=== PATIENT | female | born 1990 | race Caucasian/White ===

== ENCOUNTER 2019-09-08 12:18 | Emergency (ER) | payer OTHER, SELFPAY ==
[2019-09-08 12:30] VITALS: BP 127/81; PULSE 88; RESP 16; TEMP 37.5; O2SAT 100
--- NOTE | 2019-09-08 12:45 | ED.EAR ---
HPI - Ear Problem General Chief complaint: Ear Stated complaint: ear pressure Time Seen by Provider: 09/08/19 12:37 Source: patient and RN notes reviewed Mode of arrival: ambulatory Limitations: no limitations History of Present Illness HPI Narrative: Patient presents today complaining of a 4-day history of right ear pressure, worse over the last 2 days. She also reports some sinus pressure in the maxillary sinuses as well as a frontal headache. She has been taking Advil without relief. She does report a history of seasonal allergies, but does not currently take any medication for them. MD Complaint: ear pain Related Data Home Medications Medication Instructions Recorded Confirmed No Home Medications 09/08/19 09/08/19 Allergies Allergy/AdvReac Type Severity Reaction Status Date / Time cefaclor Allergy Mild Hives Verified 09/08/19 12:38 Review of Systems Review of Systems: Narrative: CONSTITUTIONAL: Denies body aches, fever, chills, or sweats. EYES: Denies visual changes, redness, or discharge. ENT: Denies rhinorrhea, congestion, sore throat. + Right ear pressure, bilateral maxillary sinus pressure CARDIOVASCULAR: Denies chest pain, palpitations, or edema. RESPIRATORY: Denies cough or dyspnea. GASTROINTESTINAL: Denies abdominal pain, nausea, vomiting, or diarrhea. GENITOURINARY: Denies dysuria or hematuria. SKIN: Denies rash, itching, or wounds. MUSCULOSKELETAL: Denies back pain, joint pain, or myalgia. NEUROLOGIC: Denies numbness, tingling, or weakness.+ Headache PSYCH: Denies depression or anxiety. PMFSH Social History Social History Gender identity (if verbalized by the patient): Female Comments At time of signature, I have reviewed and agree with nursing past medical, surgical, social and family history unless otherwise noted. Please see nursing chart for further information. There is no relevant family history pertinent to the presenting complaint Exam Narrative: Exam Narrative: GENERAL: Well-appearing, well-nourished, and in no acute distress. HEAD: Normocephalic, atraumatic. EYES: EOMI. No redness or drainage. Conjunctivae normal. ENT: Mucous membranes pink and moist. Nares clear. No rhinorrhea. Bilateral middle ear effusions with clear fluid, without evidence of infection. Throat normal. Uvula midline. NECK: Normal AROM. Supple. No lymphadenopathy. CHEST: No respiratory distress. Clear to auscultation. HEART: Regular rate and rhythm. No murmur appreciated. Normal peripheral pulses. EXTREMITIES: Normal range of motion. No edema. SKIN: Warm, dry, no rash. Capillary refill normal. Normal skin turgor. NEURO: No focal deficits. Alert and oriented x3. Gait steady. PSYCH: Normal affect. No signs of depression or anxiety. Course Vital Signs Vital signs: Vital Signs Temperature 99.5 F 09/08/19 12:30 Pulse Rate 88 09/08/19 12:30 Respiratory Rate 16 09/08/19 12:30 Blood Pressure 127/81 09/08/19 12:30 Pulse Oximetry 100 09/08/19 12:30 Temperature 99.5 F 09/08/19 12:30 Pulse Rate 88 09/08/19 12:30 Respiratory Rate 16 09/08/19 12:30 Blood Pressure 127/81 09/08/19 12:30 Pulse Oximetry 100 09/08/19 12:30 Reviewed. Pt has been instructed to follow up with her PCP regarding her elevated blood pressure today. Medical Decision Making Differential Diagnosis Differential Diagnosis: Otitis media, otitis externa, ruptured TM, serous otitis, eustachian tube dysfunction, cerumen impaction, URI Vital Signs Vital Signs: Vital Signs Temperature 99.5 F 09/08/19 12:30 Pulse Rate 88 09/08/19 12:30 Respiratory Rate 16 09/08/19 12:30 Blood Pressure 127/81 09/08/19 12:30 Pulse Oximetry 100 09/08/19 12:30 Temperature 99.5 F 09/08/19 12:30 Pulse Rate 88 09/08/19 12:30 Respiratory Rate 16 09/08/19 12:30 Blood Pressure 127/81 09/08/19 12:30 Pulse Oximetry 100 09/08/19 12:30 Critical Care Time Critical Care Time Critical Care Time
== END 2019-09-08 12:50 | disposition home or self-care (01) ==
PROVIDERS: Emergency Provider Nurse Practitioner; PCP Family Medicine
DX: J30.9 Allergic rhinitis, unspecified (principal)
CPT/HCPCS: 99211; G0463

== ENCOUNTER 2020-04-02 17:13 | Emergency (ER) | payer OTHER, SELFPAY ==
[2020-04-02 17:21] VITALS: BP 134/77; PULSE 94; RESP 16; TEMP 36.5; O2SAT 100
--- NOTE | 2020-04-02 17:21 | ED.DENTAL ---
HPI - Dental/Oral General Chief complaint: Dental/Oral Stated complaint: tooth infection Time Seen by Provider: 04/02/20 17:22 Source: patient and RN notes reviewed Mode of arrival: ambulatory Limitations: no limitations History of Present Illness HPI Narrative: 30 year old female who presents to [facility] care with complaints of dental pain with possible abscess to gum. Patient states that she had a root canal done last year but never went back to have crown applied. Patient states that she broke part of the tooth off in March last year and then broke another part off later.Patient states that she has a lot of tenderness to her gum and swelling where tooth has broken off. Patient has no fever or any swelling to her face or gum. Patient states that she has been using peroxide and salt water gargling and has been taking Ibuprofen. Patient states that she has taken Penicillin and Amoxicillin in the past with no abnormal reaction. MD Complaint: tooth pain and tooth injury Location: Tooth # (14) Onset (ago): day(s) (few days increased symptoms) Duration: constant Severity: moderate Relieving factors: NSAIDs and other (peroxide and salt water garling) Exacerbating factors: chewing Context: history of dental caries Associated symptoms: gum swelling Treatment prior to arrival: oral analgesic and other (peroxide and salt water gargles) Related Data Allergies Allergy/AdvReac Type Severity Reaction Status Date / Time cefaclor Allergy Mild Hives Verified 04/02/20 17:35 Review of Systems Review of Systems: Narrative: CONSTITUTIONAL: Denies fever, chills, or sweats. EYES: Denies visual changes, redness, or discharge. ENT: Denies rhinorrhea, congestion, sore throat, or otalgia, positive for dental pain left upper gum region CARDIOVASCULAR: Denies chest pain, palpitations, or edema. RESPIRATORY: Denies cough or dyspnea. GASTROINTESTINAL: Denies abdominal pain, nausea, vomiting, or diarrhea. GENITOURINARY: Denies dysuria or hematuria. SKIN: Denies rash or itching. MUSCULOSKELETAL: Denies back pain, joint pain, or myalgia. NEUROLOGIC: Denies headache, numbness, or weakness. PSYCHIATRIC: Denies anxiety or depression. All systems reviewed & are unremarkable except as noted in HPI and below [facility] Past Medical History Medical History (Updated 04/02/20 @ 19:53 by Marlene Fernandez NP) Anxiety Arm fracture At risk for dental problems Migraines Surgical History Surgical History (Updated 04/02/20 @ 19:59 by Marlene Fernandez NP) No history of previous surgery Family History Family History (Updated 04/02/20 @ 19:54 by Marlene Fernandez NP) Mother Heart disease Grandparent Diabetes mellitus Social History Social History (Updated 04/02/20 @ 19:54 by Marlene Fernandez NP) Smoking status: Former smoker Tobacco type: cigarettes Alcohol intake: never Substance use: never Living arrangements: with family Gender identity (if verbalized by the patient): Female Comments At time of signature, agree with nursing past medical, surgical, social and family history. There is no relevant family history pertinent to the presenting complaint Exam Narrative: Exam Narrative: GENERAL: Well-appearing, well-nourished, and in no acute distress. HEAD: Normocephalic, atraumatic. EYES: PERRLA and EOMI. ENT: Nares clear, no rhinorrhea or epistaxis. Mucous membranes moist.gum swollen and red where #14 tooth was previously noted with tooth broke off, no swelling to her face noted or any Rick angina noted or any difficulty swallowing. NECK: Supple.no lymphadenopathy CHEST: Clear to auscultation. No respiratory distress.SAO2 100% on room air HEART: Regular rate and rhythm. No murmur heard. Normal peripheral pulses. ABDOMEN: Soft, nontender, nondistended, normal active bowel sounds. EXTREMITIES: Normal range of motion. No edema. SKIN: Warm, dry, no rash. NEURO: No focal deficits. Alert and oriented x3. Course Vital Signs Vital signs: Vital
== END 2020-04-02 17:51 | disposition home or self-care (01) ==
PROVIDERS: Emergency Provider Registered Nurse
DX: K04.7 Periapical abscess without sinus (principal); K02.9 Dental caries, unspecified; Z87.891 Personal history of nicotine dependence
CPT/HCPCS: 99213; G0463

== ENCOUNTER 2020-07-21 09:15 | Emergency (ER) | payer OTHER, SELFPAY ==
[2020-07-21 09:58] VITALS: BP 104/79; PULSE 82; RESP 16; TEMP 36.7; O2SAT 100
--- NOTE | 2020-07-21 10:18 | ED.GENADULT ---
HPI - General Adult General Chief complaint: Upper Respiratory Infection Stated complaint: FEVER/CHILLS/SORE THROAT Time Seen by Provider: 07/21/20 10:18 Source: patient and RN notes reviewed Mode of arrival: ambulatory Limitations: no limitations History of Present Illness HPI narrative: 30-year-old female presents with complaints of upper respiratory infection symptoms, sore throat, chills, congestion, and right otalgia for the past 4 days. Ashli reports increasing symptoms with intermittent DUMONT (not the worst of her life) and nausea. Advil without relief. Dry cough without chest congestion. Rhinorrhea and nasal congestion. Exacerbating factors consist of swallowing and smoke exposure. No high fevers or sweats. No vomiting or abdominal pain. Denies chest pain, coughing up blood, jaw pain, dental pain, facial pain, foreign body sensation, and rash. LMP 06/29/2020. Remains active. The patient reports she have not been diagnosed with COVID-19. The patient reports she is waiting for results of a COVID-19 lab test. The patient reports she do not have weakness, myalgia, or fatigue. The patient reports she do not have a worsening cough. The patient reports she do not have any loss of smell or taste or diarrhea. Denies recent traveling. Denies concerns for COVID-19 or exposures been home with limited outdoor exposure except for essential household needs and return home. At this time, patient is not suspected of having COVID-19. Some parts of this dictation were generated by voice recognition software and may contain typographical and/or grammatical inaccuracies. Related Data Allergies Allergy/AdvReac Type Severity Reaction Status Date / Time cefaclor Allergy Mild Hives Verified 07/21/20 09:49 Review of Systems Review of Systems: Narrative: CONSTITUTIONAL: Complains of chills, tactile fever. Denies sweats. EYES: Denies visual changes, redness, discharge. ENT: Complains of rhinorrhea, congestion, sore throat, RT otalgia. CARDIOVASCULAR: Denies chest pain, palpitations, edema. RESPIRATORY: Denies dyspnea, wheezing. Complains of intermittent cough. GASTROINTESTINAL: Denies abdominal pain, vomiting, diarrhea. Complains of nausea. GENITOURINARY: Denies dysuria, hematuria, abnormal discharge. SKIN: Denies rash or itching. MUSCULOSKELETAL: Denies acute back pain, joint pain, myalgia. NEUROLOGIC: Denies numbness or focal weakness. PSYCHIATRIC: Denies anxiety or depression. Complains of intermittent DUMONT. All systems reviewed & are unremarkable except as noted in HPI and below. [facility] Past Medical History Medical History Anxiety Arm fracture At risk for dental problems Migraines Surgical History Surgical History No history of previous surgery Family History Family History Mother Heart disease Grandparent Diabetes mellitus Social History Social History (Updated 07/21/20 @ 10:45 by MARIETTA Vivas) Years smoked: 14 Smoking status: Current every day smoker Tobacco type: cigarettes Second hand tobacco smoke exposure: No Alcohol intake: never Substance use: never Living arrangements: with family Occupation/Education: occupation Gender identity (if verbalized by the patient): Female Comments At time of signature, agree with nurse past medical, surgical, social, and family history. There is no relevant family history pertinent to the presenting complaint. Exam Narrative: Exam Narrative: GENERAL: This is a well-nourished, well-developed patient, in no apparent distress. Talks in full sentences and ambulates with steady gait without dyspnea. HEAD: Normocephalic, atraumatic. EARS: External ears normal, auditory canals clear and without drainage, TMs normal without perforation. Hearing grossly intact. EYES: PERRL. Sclera clear/
[2020-07-22 16:42] LABS: SARS-CoV-2 RNA PCR Negative
== END 2020-07-21 10:57 | disposition home or self-care (01) ==
PROVIDERS: Emergency Provider Nurse Practitioner Family
DX: J00 Acute nasopharyngitis [common cold] (principal); J01.90 Acute sinusitis, unspecified; Z20.822 Contact with and (suspected) exposure to COVID-19; F17.210 Nicotine dependence, cigarettes, uncomplicated; F41.9 Anxiety disorder, unspecified
CPT/HCPCS: 87081; 87426; 87804; 87880; 99213; C9803; G0463; U0003; U0005

== ENCOUNTER 2020-08-25 17:27 | Emergency (ER) | payer OTHER, SELFPAY ==
[2020-08-25 17:38] VITALS: BP 130/86; PULSE 102; RESP 16; TEMP 36.8; O2SAT 100
--- NOTE | 2020-08-25 18:19 | ED.URI ---
HPI - URI/Sore Throat General Chief Complaint: Upper Respiratory Infection Stated Complaint: sinus infection Source: patient Mode of arrival: ambulatory Limitations: no limitations History of Present Illness HPI Narrative: Patient is a 30-year-old female who presents complaining of URI symptoms. Patient reports headache and sinus pressure for about 1.5 weeks. Patient reports she is supposed to use Flonase daily but has not been. She reports increased facial pressure, sore throat and states my taste and smell are off for the past 2 days. She denies fever, sore throat, nausea, vomiting or diarrhea. Related Data Allergies Allergy/AdvReac Type Severity Reaction Status Date / Time cefaclor Allergy Mild Hives Verified 08/25/20 18:15 Review of Systems Review of Systems: Narrative: CONSTITUTIONAL: Denies fever, chills, or sweats. EYES: Denies visual changes, redness, or discharge. ENT: Reports sinus pressure, changes in taste and smell CARDIOVASCULAR: Denies chest pain, palpitations, or edema. RESPIRATORY: Denies cough or dyspnea. GASTROINTESTINAL: Denies abdominal pain, nausea, vomiting, or diarrhea. GENITOURINARY: Denies dysuria or hematuria. SKIN: Denies rash or itching. MUSCULOSKELETAL: Denies back pain, joint pain, or myalgia. NEUROLOGIC: Reports headache, denies numbness, dizziness, or weakness. PSYCHIATRIC: Denies anxiety or depression. [facility] Past Medical History Medical History Anxiety Arm fracture At risk for dental problems Migraines Surgical History Surgical History No history of previous surgery Family History Family History Mother Heart disease Grandparent Diabetes mellitus Social History Social History Years smoked: 14 Smoking status: Current every day smoker Tobacco type: cigarettes Second hand tobacco smoke exposure: No Alcohol intake: never Substance use: never Gender identity (if verbalized by the patient): Female Comments At the time of signature, I have reviewed and agree with nursing past medical, surgical, social, and family history unless otherwise noted. Please see nursing chart for further information. There is no relevant family history pertinent to the presenting complaint. Exam Narrative: Exam Narrative: GENERAL: Well-appearing, well-nourished, and in no acute distress. HEAD: Normocephalic, atraumatic. EYES: EOMI. No redness or drainage. Conjunctiva are normal. ENT: Mucous membranes pink and moist. Nares clear. No rhinorrhea. TMs normal bilaterally. Throat mild erythema. Uvula midline. Maxillary and frontal sinus tenderness with palpation NECK: AROM. Supple. No lymphadenopathy. CHEST: No respiratory distress. Clear to auscultation. HEART: Regular rate and rhythm. EXTREMITIES: Normal range of motion. SKIN: Warm, dry, no rash. NEURO: No focal deficits. Alert and oriented x3. Gait steady. PSYCH: Normal affect. No signs of depression or anxiety. Course Vital Signs Vital signs: Vital Signs Temperature 36.8 C 08/25/20 17:38 Pulse Rate 102 H 08/25/20 17:38 Respiratory Rate 16 08/25/20 17:38 Blood Pressure 130/86 08/25/20 17:38 Pulse Oximetry 100 08/25/20 17:38 Temperature 36.8 C 08/25/20 17:38 Pulse Rate 102 H 08/25/20 17:38 Respiratory Rate 16 08/25/20 17:38 Blood Pressure 130/86 08/25/20 17:38 Pulse Oximetry 100 08/25/20 17:38 Reviewed MDM - URI/Sore Throat MDM Narrative Medical decision making narrative: Patient most likely has sinusitis, antibiotics prescribed at this time. Rapid Covid negative, Covid PCR sent to lab at this time. Covid testing performed due to patient's changes of taste and smell. Patient is aware of quarantine. Patient Differential Diagnosis Differential diagnosis: Likely u
[2020-08-26 17:06] LABS: SARS-CoV-2 RNA PCR Negative
== END 2020-08-25 18:30 | disposition home or self-care (01) ==
PROVIDERS: Emergency Provider Nurse Practitioner
DX: J32.9 Chronic sinusitis, unspecified (principal); Z20.822 Contact with and (suspected) exposure to COVID-19; F17.210 Nicotine dependence, cigarettes, uncomplicated; F41.9 Anxiety disorder, unspecified
CPT/HCPCS: 87426; 99213; C9803; G0463; U0003; U0005

== ENCOUNTER 2021-03-29 19:27 | Emergency (ER) | payer OTHER, SELFPAY ==
--- NOTE | 2021-03-29 19:46 | ED.URI ---
HPI - URI/Sore Throat General Chief Complaint: Upper Respiratory Infection Stated Complaint: sore throat Time Seen by Provider: 03/29/21 20:06 Source: patient and RN notes reviewed Mode of arrival: ambulatory Limitations: no limitations History of Present Illness HPI Narrative: 31-year-old female presents concern for sore throat, painful swallowing, slight nausea. She denies headache, sinus congestion, nasal drainage, fever, body aches, sweats. Reports has been fully vaccinated for Covid. Reports she is taking ibuprofen. MD elicited complaint: sore throat Related Data Allergies Allergy/AdvReac Type Severity Reaction Status Date / Time cefaclor Allergy Mild Hives Verified 03/29/21 20:02 Review of Systems Review of Systems: CONSTITUTIONAL: Denies malaise, chills, sweats, or fever. EYES: Denies visual changes, redness, or discharge. ENT: Denies rhinorrhea, congestion, sinus pain, otalgia. Reports sore throat. CARDIOVASCULAR: Denies chest pain, palpitations, or edema. RESPIRATORY: Denies cough. Denies dyspnea. GASTROINTESTINAL: Denies abdominal pain, vomiting, diarrhea. Reports nausea SKIN: Denies rash or itching. MUSCULOSKELETAL: Denies myalgia. NEUROLOGIC: Denies headache. All systems reviewed & are unremarkable except as noted in HPI and below PMFSH Past Medical History Medical History Anxiety Arm fracture At risk for dental problems Migraines Surgical History Surgical History No history of previous surgery Family History Family History Mother Heart disease Grandparent Diabetes mellitus Social History Social History Years smoked: 14 Smoking status: Current every day smoker Tobacco type: cigarettes Second hand tobacco smoke exposure: No Alcohol intake: never Substance use: never Gender identity (if verbalized by the patient): Female Comments At time of signature, agree with nursing past medical, surgical, social and family history. There is no relevant family history pertinent to the presenting complaint Exam Narrative: GENERAL: Well-appearing, well-nourished, and in no acute distress. HEAD: Normocephalic EYES: PERRLA, conjunctivae clear ENT: Nares clear, turbinates edematous and erythematous, clear discharge. Mucous membranes moist. TM pearly owens with dull light reflex bilaterally; no tragal tenderness. Oropharynx erythematous without lesions. Tonsils not enlarged and without exudate, no drooling, no hoarseness, no trismus, uvula midline. NECK: Supple. No lymphadenopathy CHEST: Clear to auscultation, breath sounds equal. No wheezing, rhonchi, rales, or stridor. No respiratory distress, speaks in full sentences. HEART: Regular rate and rhythm. No murmur heard. SKIN: Warm, dry, no rash. NEURO: Alert and oriented x3. PSYCH: Normal mood and affect Course Course Emergency Course: Patient is aware of diagnosis, understands and agrees to treatment plan. Anticipatory guidance given. Patient agrees to follow-up as directed and is aware of reasons to seek care at the emergency department. Portions of this record may have been created with voice recognition software Vital Signs Vital signs: Reviewed. MDM - URI/Sore Throat MDM Narrative Medical decision making narrative: Differential diagnosis considered: Mendez virus, strep pharyngitis, allergic rhinitis, upper respiratory tract infection, sinusitis, rhinosinusitis, nasopharyngitis. viral pharyngitis, otitis media, otitis externa, pneumonia, bronchitis, viral cough syndrome, viral syndrome, and influenza. Exam findings show no acute concerns or changes; patient is non-toxic appearing and is in no distress. Patient is appropriate for outpatient treatment and follow-up. Lab Data Attestation: I reviewed the patient's lab results. Cri
[2021-03-29 19:53] VITALS: BP 122/82; PULSE 71; RESP 16; TEMP 36.8; O2SAT 99
[2021-03-31 17:37] LABS: SARS-CoV-2 RNA PCR Negative
== END 2021-03-29 20:15 | disposition home or self-care (01) ==
PROVIDERS: Emergency Provider Nurse Practitioner
DX: J02.9 Acute pharyngitis, unspecified (principal); Z20.822 Contact with and (suspected) exposure to COVID-19; F17.210 Nicotine dependence, cigarettes, uncomplicated
CPT/HCPCS: 87081; 87880; 99213; C9803; G0463; U0003; U0005

== ENCOUNTER 2021-04-04 19:09 | Emergency (ER) | payer OTHER, SELFPAY ==
--- NOTE | 2021-04-04 19:16 | ED.URI ---
HPI - URI/Sore Throat General Chief Complaint: Upper Respiratory Infection Stated Complaint: Sore Throat Time Seen by Provider: 04/04/21 19:17 Source: patient, RN notes reviewed and old records reviewed Mode of arrival: ambulatory Limitations: no limitations History of Present Illness HPI Narrative: 31-year-old female presents to the [facility] with complaints of a sore throat for 1 week. Patient had a throat culture done, Covid test which were both negative. Has not followed up with her primary care provider. Had tried using the lidocaine throat gargle and states it does not help. Denies fevers, abdominal pain, chest pain. No shortness of breath. Patient states she talks all day and works from home and needs the pain to stop. MD elicited complaint: sore throat Related Data Allergies Allergy/AdvReac Type Severity Reaction Status Date / Time cefaclor Allergy Mild Hives Verified 04/04/21 19:23 Review of Systems Review of Systems: All systems reviewed & are unremarkable except as noted in HPI and below Constitutional: Constitutional: Reports no additional constitutional complaints, Denies chills and Denies fever(s) Eyes: Eyes: Reports no additional eye complaints ENT: Reports as per HPI, Denies dysphagia, Denies vertigo, Denies dizziness, Denies nasal congestion and Reports sore throat Cardiovascular: Cardiovascular: Reports no additional cardiovascular complaints and Denies chest pain Respiratory: Respiratory: Reports no additional respiratory complaints, Denies cough and Denies dyspnea Musculoskeletal: Musculoskeletal: Reports no additional musculoskeletal complaints Integumentary/Breasts: Skin/Breast: Reports system reviewed and no additional complaints, except as docu Neurologic: Reports system reviewed and no additional complaints, except as documented Psychiatric: Psychiatric: Reports no additional psychiatric complaints Allergic/Immunologic: Allergic/Immunologic: Reports no additional allergic/immunologic complaints [facility] Past Medical History Medical History Anxiety Arm fracture At risk for dental problems Migraines Surgical History Surgical History No history of previous surgery Family History Family History Mother Heart disease Grandparent Diabetes mellitus Social History Social History Years smoked: 14 Smoking status: Current every day smoker Tobacco type: cigarettes Second hand tobacco smoke exposure: No Alcohol intake: never Substance use: never Gender identity (if verbalized by the patient): Female Comments At the time of my signature, I reviewed and agree with the nursing past medical, surgical, social, and family history. There is no relevant family history pertinent to the patient complaint. Exam Const: General: healthy appearing, no acute distress and alert Nutritional Appearance: well nourished Orientation/consciousness: patient oriented x3 Limitations: no limitations HENMT: Head: normal to inspection Ears: external ears normal, TM's normal bilaterally and EAC's normal General nose exam: Normal external nose present, Normal nasal mucous membranes and turbinates present and No nasal discharge present Face and sinus: normal facial exam and sinuses nontender Mouth: Yes Normal oral and palatal mucosa present and Yes moist mucous membranes Throat: tonsils normal, uvula midline, postnasal drainage and no uvular edema Eyes: Conjunctivae: conjunctivae normal Pupils: Equal, round and reactive pupils present Neck: Neck: normal visual inspection, no lymphadenopathy and no meningeal signs Chest: Chest palpation & inspection: normal inspection of the chest Resp: Effort & Inspection: normal respiratory effort and no use of accessory muscles Auscultation: clear to auscultation bilater
[2021-04-04 19:18] VITALS: BP 131/80; PULSE 64; RESP 16; TEMP 36.6; O2SAT 100
== END 2021-04-04 19:30 | disposition home or self-care (01) ==
PROVIDERS: Emergency Provider Nurse Practitioner
DX: J02.9 Acute pharyngitis, unspecified (principal); F17.210 Nicotine dependence, cigarettes, uncomplicated
CPT/HCPCS: 99213; G0463

== ENCOUNTER 2021-04-12 08:49 | Emergency (ER) | payer OTHER, SELFPAY ==
[2021-04-12 08:58] VITALS: BP 117/82; PULSE 81; RESP 16; TEMP 36.1; O2SAT 99
--- NOTE | 2021-04-12 09:42 | ED.FEMALEGU ---
HPI - Female Genitourinary General Chief complaint: COURT OPERATIONS CLERK Stated complaint: YEAST INFECTION Time Seen by Provider: 04/12/21 09:40 Source: patient and RN notes reviewed Mode of arrival: ambulatory Limitations: no limitations History of Present Illness HPI Narrative: 31-year-old female presents concern for vaginal yeast infection. Reports she is currently assisted through a course of amoxicillin. Reports history of yeast infections during and when taking antibiotics. She reports vaginal itching, irritation, inflammation, thick white discharge. She denies abnormal vaginal bleeding, purulent discharge, dysuria, urine frequency, urgency. Reports mild pelvic discomfort. MD elicited complaint: genital itching Related Data Home Medications Medication Instructions Recorded Confirmed amoxicillin 875 mg PO BID 04/12/21 04/12/21 Allergies Allergy/AdvReac Type Severity Reaction Status Date / Time cefaclor Allergy Mild Hives Verified 04/12/21 09:36 Review of Systems Review of Systems: CONSTITUTIONAL: Denies malaise, chills, sweats, or fever. GASTROINTESTINAL: Denies abdominal pain, reports mild pelvic discomfort GENITOURINARY: Denies dysuria or hematuria. SKIN: Reports vaginal itching, irritation, inflammation All systems reviewed & are unremarkable except as noted in HPI and below PMFSH Past Medical History Medical History Anxiety Arm fracture At risk for dental problems Migraines Surgical History Surgical History No history of previous surgery Family History Family History Mother Heart disease Grandparent Diabetes mellitus Social History Social History Years smoked: 14 Smoking status: Current every day smoker Tobacco type: cigarettes Second hand tobacco smoke exposure: No Alcohol intake: never Substance use: never Gender identity (if verbalized by the patient): Female Comments At time of signature, agree with nursing past medical, surgical, social and family history. There is no relevant family history pertinent to the presenting complaint Exam Narrative: GENERAL: Well-appearing, well-nourished, and in no acute distress. HEAD: Normocephalic. EYES: PERRLA, conjunctivae clear. NECK: Supple. No lymphadenopathy CHEST: Clear to auscultation. No respiratory distress. HEART: Regular rate and rhythm. SKIN: Warm, dry, no rash. NEURO: Alert and oriented x3. PSYCH: Normal mood and affect Course Course Emergency Course: Patient is aware of diagnosis, understands and agrees to treatment plan. Anticipatory guidance given. Patient agrees to follow-up as directed and is aware of reasons to seek care at the emergency department. Portions of this record may have been created with voice recognition software Vital Signs Vital signs: Vital Signs Temperature 96.9 F L 04/12/21 08:58 Pulse Rate 81 04/12/21 08:58 Respiratory Rate 16 04/12/21 08:58 Blood Pressure 117/82 04/12/21 08:58 Pulse Oximetry 99 04/12/21 08:58 Temperature 96.9 F L 04/12/21 08:58 Pulse Rate 81 04/12/21 08:58 Respiratory Rate 16 04/12/21 08:58 Blood Pressure 117/82 04/12/21 08:58 Pulse Oximetry 99 04/12/21 08:58 Reviewed. MDM - Female Genitourinary MDM Narrative Medical decision making narrative: Exam findings show no acute concerns or changes; patient is non-toxic appearing and is in no distress. Patient is appropriate for outpatient treatment and follow-up. Differential Diagnosis Differential diagnosis: Likely urinary tract infection, bacterial vaginosis, cervicitis, vaginitis, cystitis and other (Candidiasis) Critical Care Time Critical Care Time Critical Care Time: No Discharge Plan Discharge Clinical Impression: Vaginal itching Patient Disposition: Home, Self-Care Condition:
== END 2021-04-12 09:55 | disposition home or self-care (01) ==
PROVIDERS: Emergency Provider Nurse Practitioner
DX: L29.2 Pruritus vulvae (principal); F17.210 Nicotine dependence, cigarettes, uncomplicated
CPT/HCPCS: 99213; G0463

== ENCOUNTER 2021-05-02 09:18 | Emergency (ER) | payer OTHER, SELFPAY ==
[2021-05-02 09:29] VITALS: BP 122/70; PULSE 77; RESP 16; TEMP 36.6; O2SAT 100
--- NOTE | 2021-05-02 10:01 | ED.URI ---
HPI - URI/Sore Throat General Chief Complaint: Upper Respiratory Infection Stated Complaint: Feveer,Chills,Body Aches Time Seen by Provider: 05/02/21 10:02 Source: patient and RN notes reviewed History of Present Illness HPI Narrative: 31-year-old female presents to the [facility] with complaints of sore throat, headache, chills and body aches since 4 AM this morning, 6 hours. States that her daughter had a positive contact the Covid. Has felt feverish but did not her temperature. No treatment prior to arrival. MD elicited complaint: sore throat and other (Body aches and chills) Related Data Home Medications Medication Instructions Recorded Confirmed amoxicillin 875 mg PO BID 04/12/21 04/12/21 Allergies Allergy/AdvReac Type Severity Reaction Status Date / Time cefaclor Allergy Mild Hives Verified 04/12/21 09:36 Review of Systems Review of Systems: All systems reviewed & are unremarkable except as noted in HPI and below Constitutional: Constitutional: Reports as per HPI, Reports chills and Denies fever(s) Eyes: Eyes: Reports no additional eye complaints ENT: Reports as per HPI, Reports nasal congestion and Reports sore throat Cardiovascular: Cardiovascular: Reports no additional cardiovascular complaints and Denies chest pain Respiratory: Respiratory: Reports no additional respiratory complaints, Denies chest congestion, Denies cough, Denies dyspnea and Denies wheezing Gastrointestinal: Gastrointestinal: Reports no additional gastrointestinal complaints, Denies abdominal pain, Denies diarrhea, Denies nausea and Denies vomiting Musculoskeletal: Musculoskeletal: Reports as per HPI and Reports myalgias Integumentary/Breasts: Skin/Breast: Reports system reviewed and no additional complaints, except as docu Neurologic: Reports as per HPI and Reports headache(s) Psychiatric: Psychiatric: Reports no additional psychiatric complaints Allergic/Immunologic: Allergic/Immunologic: Reports no additional allergic/immunologic complaints PMFSH Past Medical History Medical History Anxiety Arm fracture At risk for dental problems Migraines Surgical History Surgical History No history of previous surgery Family History Family History Mother Heart disease Grandparent Diabetes mellitus Social History Social History Years smoked: 14 Smoking status: Current every day smoker Tobacco type: cigarettes Second hand tobacco smoke exposure: No Alcohol intake: never Substance use: never Gender identity (if verbalized by the patient): Female Comments At the time of my signature, I reviewed and agree with the nursing past medical, surgical, social, and family history. There is no relevant family history pertinent to the patient complaint. Exam Const: General: healthy appearing, no acute distress and alert Nutritional Appearance: well nourished Orientation/consciousness: patient oriented x3 Limitations: no limitations HENMT: Head: normal to inspection Ears: external ears normal, TM's normal bilaterally and EAC's normal Eyes: Conjunctivae: conjunctivae normal Pupils: Equal, round and reactive pupils present Neck: Neck: normal visual inspection, no lymphadenopathy and no meningeal signs Chest: Chest palpation & inspection: normal inspection of the chest Resp: Effort & Inspection: normal respiratory effort and no use of accessory muscles Auscultation: clear to auscultation bilaterally, no crackles, no rales, no rhonchi and no wheezes Cardio: Rate: regular rate Rhythm: regular rhythm GI: GI Palp: Yes Tenderness to palpation present (GI) Skin: General skin exam: normal color Rashes: no rashes Wounds: no wounds Neuro: General: patient oriented x3, moves all extremities, no meningeal signs and no focal motor
== END 2021-05-02 10:15 | disposition left against medical advice (07) ==
PROVIDERS: Emergency Provider Nurse Practitioner
DX: B34.9 Viral infection, unspecified (principal); Z20.822 Contact with and (suspected) exposure to COVID-19; F17.210 Nicotine dependence, cigarettes, uncomplicated
CPT/HCPCS: 99211; G0463

== ENCOUNTER 2021-07-04 15:07 | Emergency (ER) | payer OTHER, SELFPAY ==
--- NOTE | 2021-07-04 15:09 | ED.URI ---
HPI - URI/Sore Throat General Chief Complaint: Upper Respiratory Infection Stated Complaint: Sore throat Time Seen by Provider: 07/04/21 15:11 Source: patient, family, RN notes reviewed and old records reviewed Mode of arrival: ambulatory Limitations: no limitations History of Present Illness HPI Narrative: 31-year-old female presents to the [facility] with complaints of a sore throat for 3 days. Has taken Tylenol. No other treatment prior to arrival. Has felt feverish. Denies any abdominal pain or chest pain. No nausea vomiting or diarrhea. MD elicited complaint: sore throat Related Data Allergies Allergy/AdvReac Type Severity Reaction Status Date / Time amoxicillin Allergy Mild Hives Verified 07/04/21 15:21 cefaclor Allergy Mild Hives Verified 07/04/21 15:21 Review of Systems Review of Systems: All systems reviewed & are unremarkable except as noted in HPI and below Constitutional: Constitutional: Reports no additional constitutional complaints, Denies chills, Denies fever(s) and Denies headache(s) Eyes: Eyes: Reports no additional eye complaints ENT: Reports as per HPI, Denies vertigo, Denies dizziness, Denies headache(s), Denies nasal congestion and Reports sore throat Cardiovascular: Cardiovascular: Reports no additional cardiovascular complaints, Denies chest pain, Denies syncope, Denies rapid heart rate and Denies dyspnea Respiratory: Respiratory: Reports no additional respiratory complaints, Denies cough, Denies dyspnea and Denies wheezing Gastrointestinal: Gastrointestinal: Reports no additional gastrointestinal complaints, Denies abdominal pain, Denies diarrhea, Denies nausea and Denies vomiting Musculoskeletal: Musculoskeletal: Reports no additional musculoskeletal complaints, Denies back pain and Denies numbness Integumentary/Breasts: Skin/Breast: Reports system reviewed and no additional complaints, except as docu Neurologic: Reports system reviewed and no additional complaints, except as documented, Denies vertigo, Denies dizziness, Denies syncope, Denies headache(s), Denies focal weakness and Denies numbness Psychiatric: Psychiatric: Reports no additional psychiatric complaints Allergic/Immunologic: Allergic/Immunologic: Reports no additional allergic/immunologic complaints and Denies wheezing PMFSH Past Medical History Medical History Anxiety Arm fracture At risk for dental problems Migraines Surgical History Surgical History No history of previous surgery Family History Family History Mother Heart disease Grandparent Diabetes mellitus Social History Social History Years smoked: 14 Smoking status: Current every day smoker Tobacco type: cigarettes Second hand tobacco smoke exposure: No Alcohol intake: never Substance use: never Gender identity (if verbalized by the patient): Female Comments At the time of my signature, I reviewed and agree with the nursing past medical, surgical, social, and family history. There is no relevant family history pertinent to the patient complaint. Exam Const: General: cooperative, healthy appearing, no acute distress, well developed and alert Nutritional Appearance: well nourished Orientation/consciousness: patient oriented x3 Limitations: no limitations HENMT: Head: normal to inspection Ears: external ears normal, TM's normal bilaterally and EAC's normal General nose exam: Normal external nose present Face and sinus: normal facial exam and face symmetric Mouth: Yes Normal oral and palatal mucosa present Throat: posterior oropharynx normal, tonsils normal, uvula midline and no uvular edema Eyes: Conjunctivae: conjunctivae normal Pupils: Equal, round and reactive pupils present Neck: Neck: normal visual inspection, no ly
[2021-07-04 15:15] VITALS: BP 123/79; PULSE 78; RESP 16; TEMP 36.6; O2SAT 99
== END 2021-07-04 15:35 | disposition home or self-care (01) ==
PROVIDERS: Emergency Provider Nurse Practitioner
DX: J02.9 Acute pharyngitis, unspecified (principal); R09.82 Postnasal drip; F17.210 Nicotine dependence, cigarettes, uncomplicated
CPT/HCPCS: 87081; 87880; 99213; G0463

== ENCOUNTER 2021-10-05 10:49 | Outpatient (CLI) | payer OTHER, SELFPAY ==
--- NOTE | ~2021-10-05 | XR_ITS ---
XR chest 2V DATE: 10/05/2021 11:03 INDICATION: Tobacco smoker for 22 years TECHNIQUE: PA and lateral views COMPARISON: 02/28/2011 2 view chest FINDINGS: Normal heart size. No hilar or mediastinal enlargement. No pulmonary infiltrate or consolid ation, pleural effusion or pulmonary vascular congestion or pneumothorax. IMPRESSION: Negative Reviewed, dictated and finalized at location A. IMPRESSION: Negative
== END 2021-10-05 10:50 | disposition home or self-care (01) ==
LOC: ANHIMG 10:53
PROVIDERS: PCP Emergency Medicine; Visit Provider Emergency Medicine
DX: Z13.6 Encounter for screening for cardiovascular disorders (principal); Z72.0 Tobacco use
CPT/HCPCS: 71046

== ENCOUNTER 2021-11-11 19:12 | Emergency (ER) | payer OTHER, SELFPAY ==
--- NOTE | 2021-11-11 19:18 | ED.URI ---
HPI - URI/Sore Throat General Chief Complaint: Upper Respiratory Infection Stated Complaint: Sinus Infection Time Seen by Provider: 11/11/21 19:19 Source: patient Mode of arrival: ambulatory Limitations: no limitations History of Present Illness HPI Narrative: 31-year-old female presents with complaint of 11 days of sinus congestion, sinus pressure, postnasal drainage. Reports that she tested positive for COVID 11 days ago. Is taking Flonase, no other [id number] medications to treat her symptoms. No recent fever. Reports last several days she has had bad taste in her mouth, intermittent dizziness. She reports history of deviated symptoms. Has history of several bacterial sinus infections. All systems reviewed and negative except as noted above. Related Data Allergies Allergy/AdvReac Type Severity Reaction Status Date / Time amoxicillin Allergy Mild Hives Verified 07/04/21 15:21 cefaclor Allergy Mild Hives Verified 07/04/21 15:21 Review of Systems Review of Systems: CONSTITUTIONAL: Denies fever, chills, or sweats. EYES: Denies visual changes, redness, or discharge. ENT: Reports rhinorrhea, congestion, sinus pressure Denies sore throat, or otalgia. CARDIOVASCULAR: Denies chest pain, palpitations, or edema. RESPIRATORY: Denies cough or dyspnea. GASTROINTESTINAL: Denies abdominal pain, nausea, vomiting, or diarrhea. GENITOURINARY: Denies dysuria or hematuria. SKIN: Denies rash or itching. MUSCULOSKELETAL: Denies back pain, joint pain, or myalgia. NEUROLOGIC: Denies headache, numbness, or weakness. PSYCHIATRIC: Denies anxiety or depression. All other systems reviewed are negative, except as documented in HPI. [facility] Past Medical History Medical History Anxiety Arm fracture At risk for dental problems Migraines Surgical History Surgical History No history of previous surgery Family History Family History Mother Heart disease Grandparent Diabetes mellitus Social History Social History Years smoked: 14 Smoking status: Current every day smoker Tobacco type: cigarettes Second hand tobacco smoke exposure: No Alcohol intake: never Substance use: never Gender identity (if verbalized by the patient): Female Comments At time of signature, agree with nursing past medical, surgical, social and family history. There is no relevant family history pertinent to the presenting complaint. Exam Narrative: GENERAL: This is a well-nourished, well-developed patient, in no apparent distress. HEAD: normocephalic, atraumatic. EYES: PERRL. Sclera clear/white. Vision is grossly intact. EARS: External ears normal, auditory canals clear and without drainage, fluid to bilateral TMs, dull light reflex. NOSE: External nose normal with clear nasal drainage, moderate congestion, erythema to both nares. Bilateral frontal and maxillary sinus tenderness. THROAT: Mucous membranes moist, no erythema to posterior pharynx. Purulent postnasal drainage noted. NECK: Neck supple, non-tender without lymphadenopathy, masses or thyromegaly. CARDIOVASCULAR: Regular rate and rhythm without murmurs, gallops, or rubs. RESPIRATORY: Clear to auscultation. Breath sounds equal bilaterally. No wheezes, rales, or rhonchi. SKIN: warm, Dry, intact with no suspicious lesions or rash, good texture and turgor. NEURO: awake, alert, and oriented to person, place and time. There were no obvious focal neurologic abnormalities. EXTREMITIES: No joint tenderness, effusion, or edema noted. Course Course Level of Care: Express Care Visit Vital Signs Vital signs: Reviewed MDM - URI/Sore Throat MDM Narrative Medical decision making narrative: Patient is aware of diagnosis, understands and agrees to treatment plan. Ron shane
[2021-11-11 19:19] VITALS: BP 129/85; PULSE 75; RESP 16; TEMP 36.8; O2SAT 100
== END 2021-11-11 19:35 | disposition home or self-care (01) ==
PROVIDERS: Emergency Provider Nurse Practitioner Family; PCP Emergency Medicine
DX: J01.90 Acute sinusitis, unspecified (principal); Z86.16 Personal history of COVID-19; F17.210 Nicotine dependence, cigarettes, uncomplicated
CPT/HCPCS: 99213; G0463

== ENCOUNTER 2021-11-16 15:19 | Emergency (ER) | payer OTHER, SELFPAY ==
[2021-11-16 15:37] VITALS: BP 126/83; PULSE 72; RESP 16; TEMP 36.3; O2SAT 100
--- NOTE | 2021-11-16 16:11 | ED.SKABFB ---
HPI - Skin/Abscess/Foreign Bdy General Chief complaint: Extremity Injury, Upper Stated complaint: hands/arms tingling Time Seen by Provider: 11/16/21 15:59 Source: patient Mode of arrival: ambulatory Limitations: no limitations History of Present Illness HPI narrative: Patient presents today complaining of a burning sensation on and on her arms and hands that started around 2 PM while she was out swimming for a little over an hour this afternoon and subsequently did end up with a sunburn. Patient has been on doxycycline for the past 5 days for a sinus infection. She was not wearing sunscreen. She has taken some ibuprofen, which has improved her symptoms prior to arrival. Related Data Allergies Allergy/AdvReac Type Severity Reaction Status Date / Time amoxicillin Allergy Mild Hives Verified 07/04/21 15:21 cefaclor Allergy Mild Hives Verified 07/04/21 15:21 Review of Systems Review of Systems: CONSTITUTIONAL: Denies body aches, fever, chills, or sweats. EYES: Denies visual changes, redness, or discharge. ENT: Denies rhinorrhea, congestion, sore throat, or otalgia. CARDIOVASCULAR: Denies chest pain, palpitations, or edema. RESPIRATORY: Denies cough or dyspnea. GASTROINTESTINAL: Denies abdominal pain, nausea, vomiting, or diarrhea. GENITOURINARY: Denies dysuria or hematuria. SKIN: +Burning to skin of bilateral arms and hands, sunburn MUSCULOSKELETAL: Denies back pain, joint pain, or myalgia. NEUROLOGIC: Denies headache, numbness, tingling, or weakness. PSYCH: Denies depression or anxiety. [facility] Past Medical History Medical History Anxiety Arm fracture At risk for dental problems Migraines Surgical History Surgical History No history of previous surgery Family History Family History Mother Heart disease Grandparent Diabetes mellitus Social History Social History Years smoked: 14 Smoking status: Current every day smoker Tobacco type: cigarettes Second hand tobacco smoke exposure: No Alcohol intake: never Substance use: never Gender identity (if verbalized by the patient): Female Comments At time of signature, I have reviewed and agree with nursing past medical, surgical, social and family history unless otherwise noted. Please see nursing chart for further information. There is no relevant family history pertinent to the presenting complaint Exam Narrative: GENERAL: Well-appearing, well-nourished, and in no acute distress. HEAD: Normocephalic, atraumatic. EYES: EOMI. No redness or drainage. Conjunctivae normal. ENT: Mucous membranes pink and moist. NECK: Normal AROM. CHEST: No respiratory distress. EXTREMITIES: Normal range of motion. No edema. SKIN: Warm, dry, no rash. Capillary refill normal. Normal skin turgor. Mild sunburn to the bilateral arms. No blistering NEURO: No focal deficits. Alert and oriented x3. Gait steady. PSYCH: Normal affect. No signs of depression or anxiety. Course Course Emergency Course: Discussed with patient that photosensitivity is very common with doxycycline use. Discussed using SPF clothing and/ or sunscreen if she is out in the sun while she is on the medication. Level of Care: Express Care Visit Vital Signs Vital signs: Vital Signs Temperature 97.4 F L 11/16/21 15:37 Pulse Rate 72 11/16/21 15:37 Respiratory Rate 16 11/16/21 15:37 Blood Pressure 126/83 11/16/21 15:37 Pulse Oximetry 100 11/16/21 15:37 Oxygen Delivery Room Air 11/16/21 15:37 Temperature 97.4 F L 11/16/21 15:37 Pulse Rate 72 11/16/21 15:37 Respiratory Rate 16 11/16/21 15:37 Blood Pressure 126/83 11/16/21 15:37 Pulse Oximetry 100 11/16/21 15:37 Oxygen Delivery Room Air 11/16/21 15:37 Reviewed. Pt cline
== END 2021-11-16 16:14 | disposition home or self-care (01) ==
PROVIDERS: Emergency Provider Nurse Practitioner
DX: L56.8 Other specified acute skin changes due to ultraviolet radiation (principal); F17.210 Nicotine dependence, cigarettes, uncomplicated
CPT/HCPCS: 99211; G0463

== ENCOUNTER 2022-01-26 19:10 | Emergency (ER) | payer OTHER, SELFPAY ==
[2022-01-26 19:46] VITALS: BP 116/71; PULSE 69; RESP 16; TEMP 36.8
--- NOTE | 2022-01-26 21:11 | ED.SKABFB ---
HPI - Skin/Abscess/Foreign Bdy General Chief complaint: Skin/Abscess/Foreign Body Stated complaint: rash Time Seen by Provider: 01/26/22 21:05 Source: patient, RN notes reviewed and old records reviewed History of Present Illness HPI narrative: 32 year old female who presents to [facility] care with complaints of red hawley on her left buttock which developed this afternoon that are itchy, patient states that she does get waxing done to the area has applied hydrocortisone ointment to area. Patient also states recurrent abscess to lower left buttock that comes and goes and will drain foul material at times, no fluctuant tissue noted to lower left buttock area small raised tissue which is red 0.25 in diameter with no acute redness of tissue or warmth. Area on left buttock appears to be contact dermatitis. MD complaint: rash and lesion Onset (ago): hour(s) (this afternoon today) Treatments prior to arrival: other (hydrocortisone) Related Data Allergies Allergy/AdvReac Type Severity Reaction Status Date / Time amoxicillin Allergy Mild Hives Verified 01/26/22 20:35 cefaclor Allergy Mild Hives Verified 01/26/22 20:35 Review of Systems Review of Systems: CONSTITUTIONAL: Denies fever, chills, or sweats. EYES: Denies visual changes, redness, or discharge. ENT: Denies rhinorrhea, congestion, sore throat, or otalgia. CARDIOVASCULAR: Denies chest pain, palpitations, or edema. RESPIRATORY: Denies cough or dyspnea. GASTROINTESTINAL: Denies abdominal pain, nausea, vomiting, or diarrhea. GENITOURINARY: Denies dysuria or hematuria. SKIN: positive rash to left buttock and small nonfluctuant lesion left lower buttock. MUSCULOSKELETAL: Denies back pain, joint pain, or myalgia. NEUROLOGIC: Denies headache, numbness, or weakness. PSYCHIATRIC:positive for history of anxiety or depression. All systems reviewed & are unremarkable except as noted in HPI and below PMFSH Past Medical History Medical History (Updated 01/30/22 @ 16:47 by Marlene Fernandez NP) Anxiety Arm fracture At risk for dental problems COVID-19 04/2021 Migraines Surgical History Surgical History No history of previous surgery Family History Family History Mother Heart disease Grandparent Diabetes mellitus Social History Social History Years smoked: 14 Smoking status: Current every day smoker Tobacco type: cigarettes Second hand tobacco smoke exposure: No Alcohol intake: never Substance use: never Gender identity (if verbalized by the patient): Female Comments At time of signature, agree with nursing past medical, surgical, social and family history. There is no relevant family history pertinent to the presenting complaint Exam Narrative: GENERAL: Well-appearing, well-nourished, and in no acute distress. HEAD: Normocephalic, atraumatic. EYES: PERRLA and EOMI. ENT: Nares clear, no rhinorrhea or epistaxis. Mucous membranes moist.TM's normal with good light reflex, throat pink with no lesions or exudates or any swelling. NECK: Supple.no lymphadenopathy CHEST: Clear to auscultation. No respiratory distress.SAO2 99% on room air HEART: Regular rate and rhythm. No murmur heard. Normal peripheral pulses. ABDOMEN: Soft, nontender, nondistended, normal active bowel sounds. EXTREMITIES: Normal range of motion. No edema. SKIN: Warm, dry, red irritated tissue to left buttock which patient states is itchy, non fluctuant 0.25cm lesion to left lower buttock NEURO: No focal deficits. Alert and oriented x3. Course Course Level of Care: Express Care Visit Vital Signs Vital signs: Vital Signs Temperature 36.8 C 01/26/22 19:46 Pulse Rate 69 01/26/22 19:46 Respiratory Rate 16 01/26/22 19:46 Blood Pressure 116/71 01/26/22 19:46 Oxygen Delivery Room Air 01/26/22 19:46 Temperature 36.8
== END 2022-01-26 21:25 | disposition home or self-care (01) ==
PROVIDERS: Emergency Provider Registered Nurse
DX: L25.9 Unspecified contact dermatitis, unspecified cause (principal); F17.210 Nicotine dependence, cigarettes, uncomplicated; Z86.16 Personal history of COVID-19
CPT/HCPCS: 99213; G0463

== ENCOUNTER 2022-03-07 19:15 | Emergency (ER) | payer OTHER, SELFPAY ==
--- NOTE | ~2022-03-07 | CT_ITS ---
EXAMINATION: CT abdomen pelvis wo con DATE: 03/07/2022 23:28 INDICATION: Hematuria and dysuria TECHNIQUE: Computed tomography (CT) of the abdomen and pelvis was performed without intravenous contr ast. The dose-length product (DLP) was 169.44 mGy-cm. Automated exposure control and iterative recons truction technique were employed. COMPARISON: 12/02/2007 FINDINGS: The lung bases are clear. The heart size is normal. The liver, spleen, pancreas, gallbladde r, and adrenal glands are normal. Cysts of the kidneys measure up to 1.6 cm on the left. There is a 2 mm nonobstructing stone of the right kidney. No pathologically enlarged abdominal or pelvic lymph no damian are identified. There is no free intraperitoneal gas or evidence of bowel obstruction. IMPRESSION: 1. Nonobstructing right nephrolithiasis. Reviewed, dictated and finalized at location B. OR DIRECTOR INSIGHT
[2022-03-07 19:34] VITALS: BP 149/89; PULSE 82; RESP 16; O2SAT 100
[2022-03-07 21:49] LABS: Appearance Urine Clear (Clear); Bilirubin Urine 1+ (Negative); Blood Urine 2+ (Negative); Color Urine Yellow (Yellow); Glucose Urine UA Negative (Negative); Ketones Urine Negative (Negative); Leukocyte Esterase Ur Negative LEU/UL (Negative); Nitrate Urine Negative (Negative); Protein Urine 1+ mg/dL (Negative); Specific Grav Ur >= 1.030 (1.001-1.035); Urobilinogen Urine 0.2 mg/dL (<2.0)
[2022-03-07 21:54] LABS: Bacteria Urine Trace /hpf; Calcium Oxalate Crystals Urine Present /hpf; Mucus Urine Heavy /lpf; Squamous Epithelial Cell Urine Few /hpf (Few)
[2022-03-07 21:59] LABS: Add Urine Microscopic? YES
--- NOTE | 2022-03-07 23:18 | ED.FEMALEGU ---
HPI - Female Genitourinary General Chief complaint: Urogenital-Female Stated complaint: burning with urination Time Seen by Provider: 03/07/22 21:46 Source: patient Mode of arrival: ambulatory Limitations: no limitations History of Present Illness HPI Narrative: This is a 32-year-old female that presents to the emergency department for dysuria. Ongoing over the last week. Associated with ulcerations of her vulva. Does report a recent new sex partner. She was evaluated by her primary care provider. Had negative tests for syphilis, chlamydia, gonorrhea, trichomonas, HSV and HIV. Denies fever, flank pain, vomiting or hematuria. Related Data Allergies Allergy/AdvReac Type Severity Reaction Status Date / Time amoxicillin Allergy Mild Hives Verified 03/07/22 19:37 cefaclor Allergy Mild Hives Verified 03/07/22 19:37 Review of Systems Review of Systems: CONSTITUTIONAL: Denies fever GASTROINTESTINAL: Denies abdominal pain, nausea, vomiting GENITOURINARY: Reports dysuria. Denies hematuria. SKIN: Reports rash. Denies itching. All systems reviewed & are unremarkable except as noted in HPI and below PMFSH Past Medical History Medical History (Updated 03/08/22 @ 00:22 by Maria Del Carmen Francis PA-C) Anxiety Arm fracture At risk for dental problems COVID-19 04/2021 Migraines Surgical History Surgical History No history of previous surgery Family History Family History Mother Heart disease Grandparent Diabetes mellitus Social History Social History Years smoked: 14 Smoking status: Current every day smoker Tobacco type: cigarettes Second hand tobacco smoke exposure: No Alcohol intake: never Substance use: never Gender identity (if verbalized by the patient): Female Exam Narrative: GENERAL: Well-appearing, well-nourished, and in no acute distress. HEAD: Normocephalic, atraumatic. EYES: EOMI. CHEST: Clear to auscultation. No respiratory distress. No wheezes rales or rhonchi HEART: Regular rate and rhythm. No murmur heard. Normal peripheral pulses. ABDOMEN: Soft, nontender, nondistended, normal active bowel sounds. EXTREMITIES: Normal range of motion. No edema. SKIN: Warm, dry, no rash. NEURO: No focal deficits. Alert and oriented x3. PSYCH: Normal mood and affect PELVIC: Two small ulcerations on an erythematous base to the left side of the vulva. Normal appearing cervix. Small amount of dark red blood in the vaginal vault Course Vital Signs Vital signs: Vital Signs Pulse Rate 82 03/07/22 19:34 Respiratory Rate 16 03/07/22 19:34 Blood Pressure 149/89 H 03/07/22 19:34 Pulse Oximetry 100 03/07/22 19:34 Oxygen Delivery Room Air 03/07/22 19:34 Pulse Rate 82 03/07/22 19:34 Respiratory Rate 16 03/07/22 19:34 Blood Pressure 149/89 H 03/07/22 19:34 Pulse Oximetry 100 03/07/22 19:34 Oxygen Delivery Room Air 03/07/22 19:34 MDM - Female Genitourinary MDM Narrative Medical decision making narrative: Patient presents the emergency department for genital ulceration that she had noted over the last couple of days. Reports new recent sexual partner. She has also had some dysuria. She saw her primary provider. She had negative HIV, syphilis, chlamydia, gonorrhea, trichomonas, and HSV tests. She has 2 small ulcerations on erythematous base noted to the labia. She is also reporting dysuria. Her urine does not look infected without leuk esterase or nitrates. She does have 10-15 white blood cells, but some squamous epithelial cells. Her bedside test is negative. I did obtain a HSV culture of the lesion and did a genital culture. Patient with history of kidney stones and having dysuria and discomfort. CT scan of the abdomen and pelvis does not show any acute findings. She has a tiny nonobstructing c
[2022-03-07 23:27] LABS: Basophils Absolute Auto 0.1 K/mm3 (0.0-0.1); Basophils Percent Auto 0.7 % (0.2-1.2); Eosinophils Absolute Auto 0.3 K/mm3 (0-0.3); Eosinophils Percent Auto 4.4 % (0-4.4); Hematocrit 42.9 % (37.0-47.0); Hemoglobin 14.1 g/dL (12.0-15.0); Immature Granulocyte Absolute 0.02 K/mm3 (0.00-0.031); Immature Granulocyte Percent A 0.3 % (0-0.5); Lymphocytes Absolute Auto 2.36 K/mm3 (0.9-3.2); Lymphocytes Percent Auto 33.7 % (18.3-44.2); Mean Corpuscular HGB Conc 32.9 g/dl (32-36); Mean Corpuscular Hemoglobin 30.5 pg (26-34); Mean Corpuscular Volume 92.7 fl (80-100); Mean Platelet Volume 10.5 fl (7.4-10.4); Monocytes Absolute Auto 0.7 K/mm3 (0.1-0.6); Monocytes Percent Auto 9.6 % (2.6-8.5); Neutrophils Absolute Auto 3.6 K/mm3 (1.3-6.7); Neutrophils Percent Auto 51.3 % (45.5-73.1); Platelet Count Result 257 k/mm3 (150-375); Red Blood Count 4.63 M/mm3 (4.2-5.4); Red Cell Distribution Width 12.8 % (11.5-14.5)
[2022-03-07 23:44] LABS: Anion Gap 11 mmol/L (8-16); Blood Urea Nitrogen 9 mg/dL (7-17); Calcium 9.1 mg/dL (8.4-10.2); Carbon Dioxide 26 mmol/L (22-30); Chloride 104 mmol/L (98-107); Estimated CRCL calculation 98 ml/min; Estimated Glomerular Filt Rate > 60; Glucose 103 mg/dL (65-110); Potassium 3.6 mmol/L (3.4-5.0); Sodium 141 mmol/L (137-145)
[2022-03-08 00:20] VITALS: TEMP 36.5
[2022-03-08 00:28] VITALS: PULSE 79; RESP 20; O2SAT 100
== END 2022-03-08 00:29 | disposition home or self-care (01) ==
PROVIDERS: Physician Assistant; Emergency Provider Emergency Medicine; PCP Emergency Medicine
DX: N76.6 Ulceration of vulva (principal); R30.0 Dysuria; F41.9 Anxiety disorder, unspecified; Z86.16 Personal history of COVID-19
CPT/HCPCS: 36415; 74176; 80048; 81001; 81025; 85025; 87070; 87086; 87255; 99284

== ENCOUNTER 2022-03-12 08:24 | Emergency (ER) | payer OTHER, SELFPAY ==
[2022-03-12 08:26] VITALS: BP 126/81; PULSE 93; RESP 16; TEMP 36.6; O2SAT 100
[2022-03-12 09:12] LABS: Appearance Urine Clear (Clear); Bilirubin Urine Negative (Negative); Blood Urine Trace-lysed (Negative); Color Urine Yellow (Yellow); Glucose Urine UA Negative (Negative); Ketones Urine Negative (Negative); Leukocyte Esterase Ur Trace LEU/UL (Negative); Nitrate Urine Negative (Negative); Protein Urine Negative (Negative); Specific Grav Ur 1.015 (1.001-1.035); Urobilinogen Urine 0.2 mg/dL (<2.0); pH Urine 5.5 (5.0-9.0)
[2022-03-12 09:16] LABS: Mucus Urine Rare /lpf; RBC Urine 0-2 /hpf (0-2); Squamous Epithelial Cell Urine Rare /hpf (Few)
[2022-03-12 09:17] LABS: Add Urine Microscopic? YES; Pregnancy On Board Control Positive; Urine Pregnancy Test Negative
--- NOTE | 2022-03-12 09:32 | ED.FEMALEGU ---
HPI - Female Genitourinary General Chief complaint: Urogenital-Female Stated complaint: unable to urinate Time Seen by Provider: 03/12/22 08:47 History of Present Illness HPI Narrative: 32-year-old female returns to the emergency department for dysuria and urinary retention. States symptoms of been going on for longer than a week. Reports being evaluated at her PCP office last week and was tested for multiple STIs which came back negative at that time. She states that she presented to the emergency room for further evaluation, where it was found that she had multiple ulcerations on her vulva that were found to be HSV positive. Patient states that she was placed on Valtrex at that time. States that she is continuing to have urinary retention, however she is able to urinate just not on command. Patient denies lower back pain. Denies fevers. Related Data Allergies Allergy/AdvReac Type Severity Reaction Status Date / Time amoxicillin Allergy Mild Hives Verified 03/07/22 19:37 cefaclor Allergy Mild Hives Verified 03/07/22 19:37 Review of Systems Review of Systems: CONSTITUTIONAL: Denies fever, chills, or sweats. EYES: Denies visual changes, redness, or discharge. ENT: Denies rhinorrhea, congestion, sore throat, or otalgia. CARDIOVASCULAR: Denies chest pain, palpitations, or edema. RESPIRATORY: Denies cough or dyspnea. GASTROINTESTINAL: Denies abdominal pain, nausea, vomiting, or diarrhea. GENITOURINARY: Reports dysuria and urinary retention SKIN: Denies rash or itching. MUSCULOSKELETAL: Denies back pain, joint pain, or myalgia. NEUROLOGIC: Denies headache, numbness, dizziness, or weakness. PSYCHIATRIC: Denies anxiety or depression. [facility] Past Medical History Medical History Anxiety Arm fracture At risk for dental problems COVID-19 04/2021 Migraines Surgical History Surgical History No history of previous surgery Family History Family History Mother Heart disease Grandparent Diabetes mellitus Social History Social History Years smoked: 14 Smoking status: Current every day smoker Tobacco type: cigarettes Second hand tobacco smoke exposure: No Alcohol intake: never Substance use: never Gender identity (if verbalized by the patient): Female Exam Narrative: GENERAL: Well-appearing, well-nourished, no physical limitations, and in no acute distress. HEAD: Normocephalic, atraumatic. EYES: Conjunctivae normal, PERRLA and EOMI. CHEST: Clear to auscultation. No respiratory distress. No wheezes rales or rhonchi. HEART: Regular rate and rhythm. No murmur heard. Normal peripheral pulses. ABDOMEN: Soft, nontender, nondistended, normal active bowel sounds. : Patient refused BACK: No CVA tenderness EXTREMITIES: Normal range of motion. No edema. No clubbing or cyanosis SKIN: Warm, dry, no rash. No noted wounds NEURO: No focal deficits. Alert and oriented x3. MAEW. CN's II-XI intact bilaterally, normal gait PSYCH: Cooperative. Anxious and tearful Course Vital Signs Vital signs: Vital Signs Temperature 36.6 C 03/12/22 08:26 Pulse Rate 93 03/12/22 08:26 Respiratory Rate 16 03/12/22 08:26 Blood Pressure 126/81 03/12/22 08:26 Pulse Oximetry 100 03/12/22 08:26 Oxygen Delivery Room Air 03/12/22 08:26 Temperature 36.6 C 03/12/22 08:26 Pulse Rate 93 03/12/22 08:26 Respiratory Rate 16 03/12/22 08:26 Blood Pressure 126/81 03/12/22 08:26 Pulse Oximetry 100 03/12/22 08:26 Oxygen Delivery Room Air 03/12/22 08:26 MDM - Female Genitourinary MDM Narrative Medical decision making narrative: 32-year-old female presented to the emergency room for further evaluation of urinary retention. Patient stated that she has been unable to urinate since last
== END 2022-03-12 11:17 | disposition home or self-care (01) ==
PROVIDERS: Emergency Provider Nurse Practitioner Family; PCP Emergency Medicine
DX: R33.9 Retention of urine, unspecified (principal); A60.04 Herpesviral vulvovaginitis; Z86.16 Personal history of COVID-19; F17.210 Nicotine dependence, cigarettes, uncomplicated
CPT/HCPCS: 51701; 81001; 81025; 96372; 99283; J1100

== ENCOUNTER 2022-03-16 08:17 | Emergency (ER) | payer OTHER, SELFPAY ==
--- NOTE | ~2022-03-16 | XR_ITS ---
EXAMINATION: XR abdomen obstructive series DATE: 03/16/2022 08:59 INDICATION: Constipation. TECHNIQUE: Upright and supine views of the abdomen on 3 radiographs were obtained. COMPARISON: CT abdomen and pelvis 03/07/2022 FINDINGS: There are no dilated loops of bowel. There is a small volume of stool in the colon. No free intraperitoneal gas. IMPRESSION: 1. Normal bowel gas pattern. Reviewed, dictated and finalized at location A. NING TECH
[2022-03-16 08:25] VITALS: BP 122/85; PULSE 80; RESP 16; TEMP 36.6; O2SAT 100
--- NOTE | 2022-03-16 08:43 | ED.FEMALEGU ---
HPI - Female Genitourinary General Chief complaint: Urogenital-Female Stated complaint: trouble urinating, constipation, Sore throat Time Seen by Provider: 03/16/22 08:43 Source: patient Related Data Allergies Allergy/AdvReac Type Severity Reaction Status Date / Time amoxicillin Allergy Mild Hives Verified 03/16/22 08:40 cefaclor Allergy Mild Hives Verified 03/16/22 08:40 PMFSH Past Medical History Medical History Anxiety Arm fracture At risk for dental problems COVID-19 04/2021 Migraines Surgical History Surgical History No history of previous surgery Family History Family History Mother Heart disease Grandparent Diabetes mellitus Social History Social History Years smoked: 14 Smoking status: Current every day smoker Tobacco type: cigarettes Second hand tobacco smoke exposure: No Alcohol intake: never Substance use: never Gender identity (if verbalized by the patient): Female Course Vital Signs Vital signs: Vital Signs Temperature 36.6 C 03/16/22 08:25 Pulse Rate 80 03/16/22 08:25 Respiratory Rate 16 03/16/22 08:25 Blood Pressure 122/85 03/16/22 08:25 Pulse Oximetry 100 03/16/22 08:25 Oxygen Delivery Room Air 03/16/22 08:25 Temperature 36.6 C 03/16/22 08:25 Pulse Rate 80 03/16/22 08:25 Respiratory Rate 16 03/16/22 08:25 Blood Pressure 122/85 03/16/22 08:25 Pulse Oximetry 100 03/16/22 08:25 Oxygen Delivery Room Air 03/16/22 08:25 Discharge Plan Discharge Prescriptions: No Action triamcinolone acetonide 0.1 % ointment 1 applic topical BID Qty: 80 0RF Rx Instructions: Never apply to face valacyclovir 1 gram tablet 1,000 mg PO Q12H 7 Days Qty: 14 0RF tramadol 50 mg tablet 50 mg PO Q6H PRN (Reason: pain) Qty: 12 0RF naproxen 500 mg tablet 500 mg PO BID Qty: 10 0RF Follow-up/Referrals: Jairo Barnes MD [Primary Care Provider] -
[2022-03-16 09:10] LABS: Basophils Absolute Auto 0.1 K/mm3 (0.0-0.1); Basophils Percent Auto 0.6 % (0.2-1.2); Eosinophils Absolute Auto 0.1 K/mm3 (0-0.3); Eosinophils Percent Auto 1.3 % (0-4.4); Hematocrit 37.7 % (37.0-47.0); Hemoglobin 12.9 g/dL (12.0-15.0); Immature Granulocyte Absolute 0.04 K/mm3 (0.00-0.031); Immature Granulocyte Percent A 0.5 % (0-0.5); Lymphocytes Absolute Auto 2.05 K/mm3 (0.9-3.2); Lymphocytes Percent Auto 23.7 % (18.3-44.2); Mean Corpuscular HGB Conc 34.2 g/dl (32-36); Mean Corpuscular Hemoglobin 30.5 pg (26-34); Mean Corpuscular Volume 89.1 fl (80-100); Mean Platelet Volume 10.3 fl (7.4-10.4); Monocytes Absolute Auto 0.6 K/mm3 (0.1-0.6); Monocytes Percent Auto 7.3 % (2.6-8.5); Neutrophils Absolute Auto 5.8 K/mm3 (1.3-6.7); Neutrophils Percent Auto 66.6 % (45.5-73.1); Platelet Count Result 249 k/mm3 (150-375); Red Blood Count 4.23 M/mm3 (4.2-5.4); Red Cell Distribution Width 12.6 % (11.5-14.5); White Blood Count 8.7 K/mm3 (4.5-10.0)
[2022-03-16 09:21] LABS: Alanine Aminotransferase 12 U/L (6-35); Albumin Level 4.3 g/dL (3.5-5.1); Alkaline Phosphatase 37 U/L (38-126); Anion Gap 12 mmol/L (8-16); Aspartate Amino Transferase 21 U/L (14-36); Bilirubin,Total 0.6 mg/dL (0.2-1.3); Blood Urea Nitrogen 8 mg/dL (7-17); Calcium 8.9 mg/dL (8.4-10.2); Carbon Dioxide 23 mmol/L (22-30); Chloride 102 mmol/L (98-107); Estimated CRCL calculation 69 ml/min; Estimated Glomerular Filt Rate > 60; Glucose 96 mg/dL (65-110); Potassium 3.7 mmol/L (3.4-5.0); Sodium 137 mmol/L (137-145)
--- NOTE | 2022-03-16 09:40 | ED.FEMALEGU ---
HPI - Female Genitourinary General Chief complaint: Urogenital-Female Stated complaint: trouble urinating, constipation, Sore throat Time Seen by Provider: 03/16/22 08:43 Source: patient Mode of arrival: ambulatory Limitations: no limitations History of Present Illness HPI Narrative: This is a 32-year-old female that presents to the emergency department for difficulty urinating. Ongoing over the last couple of weeks. She had recent unprotected sex. Had several STD test done at her primary's office. Including chlamydia, gonorrhea, trichomonas, HIV, and syphilis. She reports these all came back negative. I saw her in the ER and did a HSV swab which came back positive. She reports she has finished her week of Valtrex. She is no longer having burning with urination. But she is still having difficulty voiding. Reports she feels like she has to push very hard to be able to get urine out. She has also been constipated over the last week. She noted some white patches on her throat today as well. Denies fever or vomiting. Related Data Allergies Allergy/AdvReac Type Severity Reaction Status Date / Time amoxicillin Allergy Mild Hives Verified 03/16/22 08:40 cefaclor Allergy Mild Hives Verified 03/16/22 08:40 Review of Systems Review of Systems: CONSTITUTIONAL: Denies fever GASTROINTESTINAL: Denies abdominal pain, nausea, vomiting GENITOURINARY: Reports dysuria. Denies hematuria. SKIN: Denies rash MUSCULOSKELETAL: Denies back pain All systems reviewed & are unremarkable except as noted in HPI and below PMFSH Past Medical History Medical History Anxiety Arm fracture At risk for dental problems COVID-19 04/2021 Migraines Surgical History Surgical History No history of previous surgery Family History Family History Mother Heart disease Grandparent Diabetes mellitus Social History Social History Years smoked: 14 Smoking status: Current every day smoker Tobacco type: cigarettes Second hand tobacco smoke exposure: No Alcohol intake: never Substance use: never Gender identity (if verbalized by the patient): Female Exam Narrative: GENERAL: Well-appearing, well-nourished, and in no acute distress. HEAD: Normocephalic, atraumatic. EYES: EOMI. CHEST: Clear to auscultation. No respiratory distress. No wheezes rales or rhonchi HEART: Regular rate and rhythm. No murmur heard. Normal peripheral pulses. ABDOMEN: Soft, nontender, nondistended, normal active bowel sounds. No CVA tenderness EXTREMITIES: Normal range of motion. No edema. SKIN: Warm, dry, no rash. NEURO: No focal deficits. Alert and oriented x3. PSYCH: Normal mood and affect PELVIC: Normal external genitalia. Normal appearing cervix. Small amount of white cervical discharge Course Vital Signs Vital signs: Vital Signs Temperature 97.9 F 03/16/22 08:25 Pulse Rate 80 03/16/22 08:25 Respiratory Rate 16 03/16/22 08:25 Blood Pressure 122/85 03/16/22 08:25 Pulse Oximetry 100 03/16/22 08:25 Oxygen Delivery Room Air 03/16/22 08:25 Temperature 97.9 F 03/16/22 08:25 Pulse Rate 80 03/16/22 08:25 Respiratory Rate 16 03/16/22 08:25 Blood Pressure 122/85 03/16/22 08:25 Pulse Oximetry 100 03/16/22 08:25 Oxygen Delivery Room Air 03/16/22 08:25 MDM - Female Genitourinary MDM Narrative Medical decision making narrative: Patient presents the emergency department for continued symptoms after recently being diagnosed with HSV. Had vulvar lesions that I swabbed on 03/07 of this month. 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 She has finished her week of Valtrex. She is no longer having burning with urination. Reports she has had continued difficulty urinating. Reports she feels like she has
[2022-03-16 10:18] LABS: Influenza A QL RT-PCR Negative (Negative); Influenza B QL RT-PCR Negative (Negative); SARS-CoV-2 RNA PCR Negative
[2022-03-16 10:30] LABS: Appearance Urine Clear (Clear); Bilirubin Urine Negative (Negative); Blood Urine Trace-intact (Negative); Color Urine Yellow (Yellow); Glucose Urine UA Negative (Negative); Ketones Urine Negative (Negative); Leukocyte Esterase Ur Negative LEU/UL (Negative); Nitrate Urine Negative (Negative); Protein Urine Negative (Negative); Specific Grav Ur 1.025 (1.001-1.035)
[2022-03-16 10:40] LABS: Mucus Urine Rare /lpf; WBC Urine 0-3 /hpf
[2022-03-16 10:51] LABS: Add Urine Microscopic? YES
[2022-03-16 10:58] LABS: Pregnancy On Board Control Positive; Urine Pregnancy Test Negative
== END 2022-03-16 10:30 | disposition home or self-care (01) ==
PROVIDERS: Physician Assistant; Emergency Provider Emergency Medicine; PCP Emergency Medicine
DX: R30.0 Dysuria (principal); B00.9 Herpesviral infection, unspecified; Z20.822 Contact with and (suspected) exposure to COVID-19; F41.9 Anxiety disorder, unspecified; Z86.16 Personal history of COVID-19
CPT/HCPCS: 36415; 51701; 74019; 80053; 81001; 81025; 85025; 87070; 87491; 87591; 87636; 87808; 99284

== ENCOUNTER 2022-06-10 18:59 | Emergency (ER) | payer OTHER, SELFPAY ==
[2022-06-10 19:08] VITALS: BP 146/81; PULSE 100; RESP 18; TEMP 36.4; O2SAT 98
[2022-06-10 19:49] LABS: Appearance Urine Clear (Clear); Bilirubin Urine 1+ (Negative); Blood Urine Trace-intact (Negative); Color Urine Dark Yellow (Yellow); Glucose Urine UA 1+ mg/dL (Negative); Ketones Urine 1+ mg/dL (Negative); Leukocyte Esterase Ur 3+ LEU/UL (Negative); Nitrate Urine Positive (Negative); Protein Urine 2+ mg/dL (Negative); pH Urine 6.5 (5.0-9.0)
[2022-06-10 19:51] LABS: Basophils Absolute Auto 0.1 K/mm3 (0.0-0.1); Basophils Percent Auto 0.6 % (0.2-1.2); Eosinophils Absolute Auto 0.3 K/mm3 (0-0.3); Eosinophils Percent Auto 2.6 % (0-4.4); Hematocrit 41.2 % (37.0-47.0); Hemoglobin 13.8 g/dL (12.0-15.0); Immature Granulocyte Absolute 0.03 K/mm3 (0.00-0.031); Immature Granulocyte Percent A 0.3 % (0-0.5); Lymphocytes Absolute Auto 2.68 K/mm3 (0.9-3.2); Lymphocytes Percent Auto 27.3 % (18.3-44.2); Mean Corpuscular HGB Conc 33.5 g/dl (32-36); Mean Corpuscular Hemoglobin 31.3 pg (26-34); Mean Corpuscular Volume 93.4 fl (80-100); Mean Platelet Volume 10.5 fl (7.4-10.4); Monocytes Absolute Auto 0.9 K/mm3 (0.1-0.6); Monocytes Percent Auto 9.2 % (2.6-8.5); Neutrophils Absolute Auto 5.9 K/mm3 (1.3-6.7); Platelet Count Result 279 k/mm3 (150-375); Red Blood Count 4.41 M/mm3 (4.2-5.4); Red Cell Distribution Width 12.5 % (11.5-14.5); White Blood Count 9.8 K/mm3 (4.5-10.0)
[2022-06-10 19:55] LABS: Mucus Urine Rare /lpf; Squamous Epithelial Cell Urine Many /hpf (Few)
[2022-06-10 19:58] LABS: Add Urine Microscopic? YES
[2022-06-10 19:59] LABS: Alanine Aminotransferase 16 U/L (6-35); Albumin Level 4.8 g/dL (3.5-5.1); Alkaline Phosphatase 41 U/L (38-126); Anion Gap 8 mmol/L (8-16); Aspartate Amino Transferase 24 U/L (14-36); Bilirubin,Total 0.6 mg/dL (0.2-1.3); Blood Urea Nitrogen 8 mg/dL (7-17); Calcium 8.9 mg/dL (8.4-10.2); Carbon Dioxide 25 mmol/L (22-30); Chloride 106 mmol/L (98-107); Estimated CRCL calculation 89 ml/min; Estimated Glomerular Filt Rate > 60; Glucose 92 mg/dL (65-110); Potassium 3.4 mmol/L (3.4-5.0); Sodium 139 mmol/L (137-145)
--- NOTE | 2022-06-10 20:23 | ED.GENADULT ---
HPI - General Adult General Chief complaint: Urogenital-Female Stated complaint: Left groin pain, recent abx for a UTI Time Seen by Provider: 06/10/22 19:40 History of Present Illness HPI narrative: This is a 32-year-old female presenting ED for UTI symptoms. Patient diagnosed UTI proximally 1 week ago. She was placed on Bactrim but did not finish the complete course. he tried to treat herself with cranberry juice but the symptoms became worse. She then saw her primary care physician who placed her on Cipro. She has completed that but did not resolve her symptoms. Patient was instructed to go to a laboratory and submit a urine sample for culture but she did not do that. Now she is having left flank pain and suprapubic tenderness. Patient has some nausea but no vomiting. She denies fever, chills chest pain difficulty breathing. she was recently tested for STDs which were negative and would not like to be tested today. Related Data Allergies Allergy/AdvReac Type Severity Reaction Status Date / Time cefaclor Allergy Mild Hives Verified 06/10/22 19:11 [facility] Past Medical History Medical History Anxiety Arm fracture At risk for dental problems COVID-19 04/2021 Migraines Surgical History Surgical History No history of previous surgery Family History Family History Mother Heart disease Grandparent Diabetes mellitus Social History Social History Years smoked: 14 Smoking status: Current every day smoker Tobacco type: cigarettes Second hand tobacco smoke exposure: No Alcohol intake: never Substance use: never Living arrangements: with family Occupation/Education: occupation Gender identity (if verbalized by the patient): Female Exam Narrative: APPEARANCE: No apparent distress. Patient is well-appearing Head: atraumatic. EYES: EOMI, NOSE: Atraumatic NECK: Trachea midline RESPIRATORY: No increased rate of breathing CARDIOVASCULAR: RRR, ABDOMINAL: suprapubic tenderness, no guarding or rebound. No CVA tenderness MUSCULOSKELETAl: No obvious deformities NEURO: Alert. Moving 4/4 extremities SKIN:: Warm, dry. Normal color PSYCHIATRIC: Normal affect Course Vital Signs Vital signs: Vital Signs Temperature 97.5 F L 06/10/22 19:08 Pulse Rate 100 06/10/22 19:08 Respiratory Rate 18 06/10/22 19:08 Blood Pressure 146/81 H 06/10/22 19:08 Pulse Oximetry 98 06/10/22 19:08 Oxygen Delivery Room Air 06/10/22 19:08 Temperature 97.5 F L 06/10/22 19:08 Pulse Rate 100 06/10/22 19:08 Respiratory Rate 18 06/10/22 19:08 Blood Pressure 146/81 H 06/10/22 19:08 Pulse Oximetry 98 06/10/22 19:08 Oxygen Delivery Room Air 06/10/22 19:08 Medical Decision Making MDM Narrative Medical decision making narrative: -Presentation: This is a 32-year-old female presenting with refractory UTI symptoms. She is intermittently compliant with her medications. She has never submitted a culture. Patient will be started on ceftriaxone. She had a allergy to cefaclor many many years ago when she was a small child. She is not sure if it is a true allergy. There is limited cross-reactivity between 2nd and 3rd generation and ceftriaxone. She will be monitored after a medication to ensure that she tolerates it. The patient was recently worked up for STDs which was negative. She has not been having any vaginal discharge irritation of the indicative of PID. 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
[2022-06-10 20:45] VITALS: BP 129/74; PULSE 80; RESP 16; O2SAT 99
== END 2022-06-10 20:59 | disposition home or self-care (01) ==
PROVIDERS: Emergency Medicine; Emergency Provider Emergency Medicine; PCP Emergency Medicine
DX: N39.0 Urinary tract infection, site not specified (principal); Z86.16 Personal history of COVID-19; F17.210 Nicotine dependence, cigarettes, uncomplicated
CPT/HCPCS: 36415; 80053; 81001; 81025; 85025; 96365; 99284; J0696

== ENCOUNTER 2022-06-14 08:26 | Emergency (ER) | payer OTHER, SELFPAY ==
[2022-06-14 08:46] VITALS: BP 121/67; PULSE 84; RESP 16; TEMP 37.2; O2SAT 99
--- NOTE | 2022-06-14 09:00 | ED.FEMALEGU ---
HPI - Female Genitourinary General Chief complaint: Urogenital-Female Stated complaint: Vaginal Problems Time Seen by Provider: 06/14/22 09:00 Source: patient Mode of arrival: ambulatory Limitations: no limitations History of Present Illness HPI Narrative: 32-year-old female presents with complaint of vaginal itching, discharge, swelling. Patient reports that she has recently been on 3 antibiotics to treat a urinary tract infection. Patient states that she took Bactrim and Cipro that reports resistant to UTI. Started cefdinir 3-4 days ago and was also given ceftriaxone in the ER. Yeast infections symptoms started yesterday. She cough primary care physician but he is out office today. All systems reviewed and negative except as noted above. Related Data Allergies Allergy/AdvReac Type Severity Reaction Status Date / Time cefaclor Allergy Mild Hives Verified 06/14/22 08:40 Review of Systems Review of Systems: CONSTITUTIONAL: Denies fever, chills, or sweats. EYES: Denies visual changes, redness, or discharge. ENT: Denies rhinorrhea, congestion, sore throat, or otalgia. CARDIOVASCULAR: Denies chest pain, palpitations, or edema. RESPIRATORY: Denies cough or dyspnea. GASTROINTESTINAL: Denies abdominal pain, nausea, vomiting, or diarrhea. GENITOURINARY: Reports vaginal itching, vaginal swelling and discharge. SKIN: Denies rash or itching. MUSCULOSKELETAL: Denies back pain, joint pain, or myalgia. NEUROLOGIC: Denies headache, numbness, or weakness. PSYCHIATRIC: Denies anxiety or depression. All other systems reviewed are negative, except as documented in HPI. [facility] Past Medical History Medical History Anxiety Arm fracture At risk for dental problems COVID-19 04/2021 Migraines Surgical History Surgical History No history of previous surgery Family History Family History Mother Heart disease Grandparent Diabetes mellitus Social History Social History Years smoked: 14 Smoking status: Current every day smoker Tobacco type: cigarettes Second hand tobacco smoke exposure: No Alcohol intake: never Substance use: never Living arrangements: with family Occupation/Education: occupation Gender identity (if verbalized by the patient): Female Comments At time of signature, agree with nursing past medical, surgical, social and family history. There is no relevant family history pertinent to the presenting complaint. Exam Narrative: GENERAL: This is a well-nourished, well-developed patient, in no apparent distress. HEAD: normocephalic, atraumatic. EYES: PERRL. Sclera clear/white. Vision is grossly intact. EARS: External ears normal NOSE: External nose normal NECK: Neck supple, non-tender without lymphadenopathy, masses or thyromegaly. CARDIOVASCULAR: Regular rate and rhythm without murmurs, gallops, or rubs. RESPIRATORY: Clear to auscultation. Breath sounds equal bilaterally. No wheezes, rales, or rhonchi. SKIN: warm, Dry, intact with no suspicious lesions or rash, good texture and turgor. NEURO: awake, alert, and oriented to person, place and time. There were no obvious focal neurologic abnormalities. EXTREMITIES: No joint tenderness, effusion, or edema noted. Course Course Level of Care: Express Care Visit Vital Signs Vital signs: Vital Signs Temperature 37.2 C 06/14/22 08:46 Pulse Rate 84 06/14/22 08:46 Respiratory Rate 16 06/14/22 08:46 Blood Pressure 121/67 06/14/22 08:46 Pulse Oximetry 99 06/14/22 08:46 Oxygen Delivery Room Air 06/14/22 08:46 Temperature 37.2 C 06/14/22 08:46 Pulse Rate 84 06/14/22 08:46 Respiratory Rate 16 06/14/22 08:46 Blood Pressure 121/67 06/14/22 08:46 Pulse Oximetry 99 06/14/22 08:46 Oxygen Deliver
== END 2022-06-14 09:10 | disposition home or self-care (01) ==
PROVIDERS: Emergency Provider Nurse Practitioner Family; PCP Emergency Medicine
DX: B37.31 Acute candidiasis of vulva and vagina (principal); Z86.16 Personal history of COVID-19
CPT/HCPCS: 99213; G0463

== ENCOUNTER 2022-07-20 19:22 | Emergency (ER) | payer OTHER, SELFPAY ==
[2022-07-20 19:31] VITALS: BP 119/80; PULSE 76; RESP 16; TEMP 37; O2SAT 100
--- NOTE | 2022-07-20 19:38 | ED.URI ---
HPI - URI/Sore Throat General Chief Complaint: Upper Respiratory Infection Stated Complaint: Sore Throat Time Seen by Provider: 07/20/22 19:38 Source: patient, RN notes reviewed and old records reviewed Mode of arrival: ambulatory Limitations: no limitations History of Present Illness HPI Narrative: 32-year-old female presents to the [facility] with complaints of a sore throat for 2-3 days, has not taken anything for her symptom Related Data Allergies Allergy/AdvReac Type Severity Reaction Status Date / Time cefaclor Allergy Mild Hives Verified 07/20/22 19:35 Review of Systems Review of Systems: All systems reviewed & are unremarkable except as noted in HPI and below Constitutional: Constitutional: Reports no additional constitutional complaints Eyes: Eyes: Reports no additional eye complaints ENT: Reports as per HPI and Reports sore throat Cardiovascular: Cardiovascular: Reports no additional cardiovascular complaints, Denies chest pain and Denies dyspnea Respiratory: Respiratory: Reports no additional respiratory complaints, Denies chest congestion, Denies cough and Denies dyspnea Gastrointestinal: Gastrointestinal: Reports no additional gastrointestinal complaints, Denies abdominal pain, Denies nausea and Denies vomiting Musculoskeletal: Musculoskeletal: Reports no additional musculoskeletal complaints Integumentary/Breasts: Skin/Breast: Reports system reviewed and no additional complaints, except as docu Neurologic: Reports system reviewed and no additional complaints, except as documented Psychiatric: Psychiatric: Reports no additional psychiatric complaints Allergic/Immunologic: Allergic/Immunologic: Reports no additional allergic/immunologic complaints PMFSH Past Medical History Medical History Anxiety Arm fracture At risk for dental problems COVID-19 04/2021 Migraines Surgical History Surgical History No history of previous surgery Family History Family History Mother Heart disease Grandparent Diabetes mellitus Social History Social History Years smoked: 14 Smoking status: Current every day smoker Tobacco type: cigarettes Second hand tobacco smoke exposure: No Alcohol intake: never Substance use: never Living arrangements: with family Occupation/Education: occupation Gender identity (if verbalized by the patient): Female Comments At the time of my signature, I reviewed and agree with the nursing past medical, surgical, social, and family history. There is no relevant family history pertinent to the patient complaint. Exam Const: General: cooperative, healthy appearing, comfortable, no acute distress, well developed, alert and well nourished Nutritional Appearance: well nourished Orientation/consciousness: patient oriented x3 Limitations: no limitations HENMT: Head: normal to inspection Ears: hearing grossly normal bilaterally and external ears normal Face/Nose/Sinus: Normal external nose present, Normal nares present, Normal nasal mucous membranes and turbinates present and normal facial exam Face and sinus: normal facial exam Mouth: Yes Normal oral and palatal mucosa present, Yes lip normal and Yes moist mucous membranes Throat: posterior oropharynx normal, uvula midline, abnormal tonsil on the right crypts (With a small stone upper aspect of the right tonsil); no erythema, no exudates and no hypertrophy and no uvular edema Eyes: General: appearance normal, both eyes and all related structures Alignment and Position: alignment normal Periorbital: periorbital findings normal Conjunctivae: conjunctivae normal Pupils: Equal, round and reactive pupils present EOM: EOMs intact bilaterally Neck: Neck: normal visual inspection, full ROM, no lymphadenopa
== END 2022-07-20 19:45 | disposition home or self-care (01) ==
PROVIDERS: Emergency Provider Nurse Practitioner; PCP Emergency Medicine
DX: J35.8 Other chronic diseases of tonsils and adenoids (principal); F17.210 Nicotine dependence, cigarettes, uncomplicated
CPT/HCPCS: 87081; 87880; 99213; G0463

== ENCOUNTER 2022-08-11 08:17 | Emergency (ER) | payer OTHER, SELFPAY ==
[2022-08-11 08:28] VITALS: BP 113/86; PULSE 103; RESP 20; TEMP 37.5; O2SAT 98
--- NOTE | 2022-08-11 09:00 | ED.URI ---
HPI - URI/Sore Throat General Chief Complaint: Upper Respiratory Infection Stated Complaint: uri Time Seen by Provider: 08/11/22 08:45 Source: patient Mode of arrival: ambulatory Limitations: no limitations History of Present Illness HPI Narrative: Patient presents today complaining of a 2 day history of sore throat, congestion, rhinorrhea, headache, body aches coat sinus pressure. Denies fever or cough. She currently rates her pain 4/10 has tried no medication for symptoms prior to arrival. Daughter currently positive for strep throat. Related Data Home Medications Medication Instructions Recorded Confirmed No Home Medications 08/11/22 08/11/22 Allergies Allergy/AdvReac Type Severity Reaction Status Date / Time cefaclor Allergy Mild Hives Verified 08/11/22 08:24 Review of Systems Review of Systems: CONSTITUTIONAL: Denies fever, chills, or sweats.+ body aches EYES: Denies visual changes, redness, or discharge. ENT: Denies otalgia.+ sore throat, congestion, rhinorrhea CARDIOVASCULAR: Denies chest pain, palpitations, or edema. RESPIRATORY: Denies cough or dyspnea. GASTROINTESTINAL: Denies abdominal pain, nausea, vomiting, or diarrhea. GENITOURINARY: Denies dysuria or hematuria. SKIN: Denies rash, itching, or wounds. MUSCULOSKELETAL: Denies back pain, joint pain, or myalgia. NEUROLOGIC: Denies numbness, tingling, or weakness.+ headache PSYCH: Denies depression or anxiety. [facility] Past Medical History Medical History Anxiety Arm fracture At risk for dental problems COVID-19 04/2021 Migraines Surgical History Surgical History No history of previous surgery Family History Family History Mother Heart disease Grandparent Diabetes mellitus Social History Social History Years smoked: 14 Smoking status: Current every day smoker Tobacco type: cigarettes Second hand tobacco smoke exposure: No Alcohol intake: never Substance use: never Living arrangements: with family Occupation/Education: occupation Gender identity (if verbalized by the patient): Female Comments At time of signature, I have reviewed and agree with nursing past medical, surgical, social and family history unless otherwise noted. Please see nursing chart for further information. There is no relevant family history pertinent to the presenting complaint Exam Narrative: GENERAL: Well-appearing, well-nourished, and in no acute distress. HEAD: Normocephalic, atraumatic. EYES: EOMI. No redness or drainage. Conjunctivae normal. ENT: Mucous membranes pink and moist. Nares congested with rhinorrhea. TMs normal bilaterally. Throat mildly erythematous without edema today. Uvula midline. NECK: Normal AROM. Supple. No lymphadenopathy. CHEST: No respiratory distress. Clear to auscultation. HEART: Regular rate and rhythm. No murmur appreciated. EXTREMITIES: Normal range of motion. No edema. SKIN: Warm, dry, no rash. Capillary refill normal. Normal skin turgor. NEURO: No focal deficits. Alert and oriented x3. Gait steady. PSYCH: Normal affect. No signs of depression or anxiety. Course Course Level of Care: Express Care Visit Vital Signs Vital signs: Vital Signs Temperature 99.5 F 08/11/22 08:28 Pulse Rate 103 H 08/11/22 08:28 Respiratory Rate 20 08/11/22 08:28 Blood Pressure 113/86 08/11/22 08:28 Pulse Oximetry 98 08/11/22 08:28 Temperature 99.5 F 08/11/22 08:28 Pulse Rate 103 H 08/11/22 08:28 Respiratory Rate 20 08/11/22 08:28 Blood Pressure 113/86 08/11/22 08:28 Pulse Oximetry 98 08/11/22 08:28 Reviewed. Pt has been instructed to follow up with her PCP regarding her elevated blood pressure today. MDM - URI/Sore Throat MDM Narrativ
== END 2022-08-11 09:12 | disposition home or self-care (01) ==
PROVIDERS: Emergency Provider Nurse Practitioner; PCP Emergency Medicine
DX: J06.9 Acute upper respiratory infection, unspecified (principal); Z20.822 Contact with and (suspected) exposure to COVID-19; F17.210 Nicotine dependence, cigarettes, uncomplicated; Z86.16 Personal history of COVID-19
CPT/HCPCS: 87081; 87426; 87804; 87880; 99213; C9803; G0463

== ENCOUNTER 2022-08-15 08:25 | Emergency (ER) | payer OTHER, SELFPAY ==
[2022-08-15 08:43] VITALS: BP 121/77; PULSE 88; RESP 16; TEMP 36.7; O2SAT 99
--- NOTE | 2022-08-15 08:54 | ED.FEMALEGU ---
HPI - Female Genitourinary General Chief complaint: Urogenital-Female Stated complaint: uti Source: patient and RN notes reviewed Mode of arrival: ambulatory Limitations: no limitations History of Present Illness HPI Narrative: 32-year-old female presenting for complaint of mild dysuria over the last 2 days. Also states she feels like she is urinating more often than normal. She denies significant urgency, or decreased urinary output. She denies abdominal pain, flank pain, hematuria, nausea, vomiting diarrhea, fevers chills. She has not taken any [id number] medication for symptoms. LMP 07/22/2022. She is trying to conceive. Patient also endorses URI symptoms for 5 days. She was seen at this facility 4 days ago, diagnosed with a viral URI. Related Data Allergies Allergy/AdvReac Type Severity Reaction Status Date / Time cefaclor Allergy Mild Hives Verified 08/11/22 08:24 Review of Systems Review of Systems: CONSTITUTIONAL: Denies body aches, fever, chills, or sweats. CARDIOVASCULAR: Denies chest pain, palpitations, or edema. RESPIRATORY: Denies cough or dyspnea. GASTROINTESTINAL: Denies abdominal pain, nausea, vomiting, or diarrhea. GENITOURINARY: Reports dysuria, denies hematuria, flank pain SKIN: Denies rash, itching, or wounds. MUSCULOSKELETAL: Denies back pain or myalgia. [facility] Past Medical History Medical History Anxiety Arm fracture At risk for dental problems COVID-19 04/2021 Migraines Surgical History Surgical History No history of previous surgery Family History Family History Mother Heart disease Grandparent Diabetes mellitus Social History Social History Years smoked: 14 Smoking status: Current every day smoker Tobacco type: cigarettes Second hand tobacco smoke exposure: No Alcohol intake: never Substance use: never Living arrangements: with family Occupation/Education: occupation Gender identity (if verbalized by the patient): Female Comments At time of signature, I have reviewed and agree with nursing past medical, surgical, social and family history unless otherwise noted. Please see nursing chart for further information. There is no relevant family history pertinent to the presenting complaint Exam Narrative: GENERAL: Well-appearing ENT: Mucous membranes pink and moist. NECK: Normal AROM. Supple. CHEST: Clear to auscultation. Frequent [employer] cough. HEART: Regular rate and rhythm. ABDOMEN: Soft, nontender, nondistended, normal active bowel sounds. No CVA tenderness SKIN: Warm, dry, no rash. NEURO: Alert and oriented x3. Gait steady. PSYCH: Normal affect. Course Course Emergency Course: Patient is aware of diagnosis, understands and agrees to treatment plan. Anticipatory guidance given. Patient agrees to follow-up as directed and is aware of reasons to seek care at the emergency department. Portions of this record may have been created with voice recognition software Level of Care: Express Care Visit Vital Signs Vital signs: Vital Signs Temperature 98.0 F 08/15/22 08:43 Pulse Rate 88 08/15/22 08:43 Respiratory Rate 16 08/15/22 08:43 Blood Pressure 121/77 08/15/22 08:43 Pulse Oximetry 99 08/15/22 08:43 Oxygen Delivery Room Air 08/15/22 08:43 Temperature 98.0 F 08/15/22 08:43 Pulse Rate 88 08/15/22 08:43 Respiratory Rate 16 08/15/22 08:43 Blood Pressure 121/77 08/15/22 08:43 Pulse Oximetry 99 08/15/22 08:43 Oxygen Delivery Room Air 08/15/22 08:43 Reviewed MDM - Female Genitourinary MDM Narrative Medical decision making narrative: Result of urine dip and neg preg reviewed with pt. Discussed waiting for urine culture results, pt would prefer to start abx at this time.
== END 2022-08-15 09:08 | disposition home or self-care (01) ==
PROVIDERS: Emergency Provider Nurse Practitioner Family; PCP Emergency Medicine
DX: R30.0 Dysuria (principal); F17.210 Nicotine dependence, cigarettes, uncomplicated; Z86.16 Personal history of COVID-19
CPT/HCPCS: 81003; 81025; 87086; 99213; G0463

== ENCOUNTER 2022-08-22 19:20 | Emergency (ER) | payer OTHER, SELFPAY ==
[2022-08-22 19:34] VITALS: BP 132/88; PULSE 86; RESP 16; TEMP 36.9; O2SAT 100
[2022-08-22 20:03] LABS: Basophils Absolute Auto 0.1 K/mm3 (0.0-0.1); Basophils Percent Auto 0.5 % (0.2-1.2); Eosinophils Absolute Auto 0.3 K/mm3 (0-0.3); Eosinophils Percent Auto 2.2 % (0-4.4); Hematocrit 40.5 % (37.0-47.0); Hemoglobin 13.5 g/dL (12.0-15.0); Immature Granulocyte Absolute 0.06 K/mm3 (0.00-0.031); Immature Granulocyte Percent A 0.5 % (0-0.5); Lymphocytes Absolute Auto 3.41 K/mm3 (0.9-3.2); Lymphocytes Percent Auto 26.6 % (18.3-44.2); Mean Corpuscular HGB Conc 33.3 g/dl (32-36); Mean Corpuscular Hemoglobin 30.7 pg (26-34); Mean Platelet Volume 10.6 fl (7.4-10.4); Monocytes Absolute Auto 0.9 K/mm3 (0.1-0.6); Monocytes Percent Auto 6.6 % (2.6-8.5); Neutrophils Absolute Auto 8.1 K/mm3 (1.3-6.7); Neutrophils Percent Auto 63.6 % (45.5-73.1); Platelet Count Result 266 k/mm3 (150-375); Red Cell Distribution Width 12.7 % (11.5-14.5); White Blood Count 12.8 K/mm3 (4.5-10.0)
[2022-08-22 20:29] LABS: Beta HCG Quantitative 13.94 mIU/ML
[2022-08-22 21:05] LABS: Appearance Urine Cloudy (Clear); Bacteria Urine None Seen /hpf; Bilirubin Urine Negative (Negative); Blood Urine 3+ (Negative); Color Urine Dark Yellow (Yellow); Glucose Urine UA Negative (Negative); Ketones Urine Trace mg/dL (Negative); Leukocyte Esterase Ur 1+ LEU/UL (Negative); Nitrate Urine Negative (Negative); Non Pathogenic Casts 0-2; Protein Urine 1+ mg/dL (Negative); RBC Urine >100 /hpf (0-2); Specific Grav Ur 1.022 (1.001-1.035); Squamous Epithelial Cell Urine Few /hpf (Few); WBC Urine 21-50 /hpf; pH Urine 5.5 (5.0-9.0)
[2022-08-22 21:10] LABS: Add Urine Microscopic? YES
--- NOTE | 2022-08-22 21:25 | PC.NURSE ---
pt states I'm just going to go home. ambulated from er without difficulty
== END 2022-08-22 21:25 | disposition left against medical advice (07) ==
PROVIDERS: Emergency Provider Emergency Medicine; PCP Emergency Medicine
DX: N93.9 Abnormal uterine and vaginal bleeding, unspecified (principal)
CPT/HCPCS: 36415; 81001; 81025; 84702; 85025; 85461; 86850; 86900; 86901; 87086; 90384; 99199; J2790

== ENCOUNTER 2022-08-23 08:28 | Emergency (ER) | payer OTHER, SELFPAY ==
--- NOTE | ~2022-08-23 | US_ITS ---
EXAMINATION: US OB <=14 wk fetus w TV DATE: 08/23/2022 09:47 INDICATION: Vaginal bleeding during first trimester TECHNIQUE: Real-time pelvic transabdominal and transvaginal ultrasound was performed. COMPARISON: None. FINDINGS: The uterus measures 7.8 x 4.2 x 5.4 cm. The endometrial thickness measures 8 mm. No definit e intrauterine gestational sac is identified. The right ovary measures 3.1 x 1.8 x 1.9 cm. The left o vary measures 2.8 x 2.0 x 2.0 cm. There is normal vascular flow in the ovaries. There is no free flui d in the pelvis. IMPRESSION: 1. of unknown location. Although no intrauterine gestational sac is seen, this may be due t o early gestation. If the patient is clinically stable, recommend followup with serial beta-hCG and u ltrasound. Reviewed, dictated and finalized at location B. IMPRESSION: 1. of unknown location. Although no intrauterine gestational sac is s een, this may be due to early gestation. If the patient is clinically stable, r ecommend followup with serial beta-hCG and ultrasound.
[2022-08-23 08:41] VITALS: BP 140/81; PULSE 94; RESP 16; TEMP 36.3; O2SAT 100
[2022-08-23] MEDS: RHO(D) IMMUNE GLOBULIN 300 MCG/2 ML SYRINGE IM (09:38)
--- NOTE | 2022-08-23 10:46 | ED.GENADULT ---
HPI - General Adult General Chief complaint: Vaginal Bleeding Stated complaint: vaginal bleeding, 5 weeks Time Seen by Provider: 08/23/22 08:41 History of Present Illness HPI narrative: Patient is a 32-year-old female who is a who presents ER with vaginal bleeding. Began yesterday. She came to the ER and had blood work drawn but then left due to long wait time. She returns today. She feels like she is probably having a miscarriage as the bleeding is dark and an increase. She has mild cramping. She has not had it ultrasound to confirm location and she is concerned about ectopic . Her letter of credit clerk is Dr. Champion at [facility]. Patient reports her LMP was July 20, 2022. Related Data Allergies Allergy/AdvReac Type Severity Reaction Status Date / Time cefaclor Allergy Mild Hives Verified 08/23/22 08:50 Review of Systems Review of Systems: All systems reviewed & are unremarkable except as noted in HPI and below Constitutional: Constitutional: Denies chills, Denies fatigue and Denies fever(s) Cardiovascular: Cardiovascular: Denies chest pain, Denies rapid heart rate and Denies radiating jaw, neck or arm pain Respiratory: Respiratory: Denies cough and Denies dyspnea Gastrointestinal: Gastrointestinal: Denies abdominal pain, Denies nausea and Denies vomiting Genitourinary: Genitourinary: Reports abnormal vaginal bleeding, Denies nocturia and Denies dysuria PMFSH Past Medical History Medical History Anxiety Arm fracture At risk for dental problems COVID-19 04/2021 Migraines Surgical History Surgical History No history of previous surgery Family History Family History Mother Heart disease Grandparent Diabetes mellitus Social History Social History Years smoked: 14 Smoking status: Current every day smoker Tobacco type: cigarettes Second hand tobacco smoke exposure: No Alcohol intake: never Substance use: never Living arrangements: with family Occupation/Education: occupation Gender identity (if verbalized by the patient): Female Exam Narrative: GENERAL: Well-appearing, well-nourished, and in no acute distress. HEAD: Normocephalic, atraumatic. ENT: Mucous membranes moist. CHEST: Clear to auscultation. No respiratory distress. HEART: Regular rate and rhythm. Normal peripheral pulses. ABDOMEN: Soft, nontender, nondistended. EXTREMITIES: Normal range of motion. No edema. SKIN: Warm, dry, no rash. NEURO: Alert and oriented x3. PSYCH: Normal mood and affect. Course Course Emergency Course: I discussed the results with the patient from her blood work last night. She is a negative and required RhoGAM so she received an injection here. Beta-hCG 13.9. No IUP or ectopic seen on ultrasound. Most likely miscarriage but still remote possibility of ectopic. Discussed case with her OB Dr. Champion. Recommends following up in clinic. Patient verbalized understanding of this. May require repeat ultrasound and beta-hCG. Vital Signs Vital signs: Vital Signs Temperature 97.3 F L 08/23/22 08:41 Pulse Rate 94 08/23/22 08:41 Respiratory Rate 16 08/23/22 08:41 Blood Pressure 140/81 08/23/22 08:41 Pulse Oximetry 100 08/23/22 08:41 Oxygen Delivery Room Air 08/23/22 08:41 Temperature 97.3 F L 08/23/22 08:41 Pulse Rate 94 08/23/22 08:41 Respiratory Rate 16 08/23/22 08:41 Blood Pressure 140/81 08/23/22 08:41 Pulse Oximetry 100 08/23/22 08:41 Oxygen Delivery Room Air 08/23/22 08:41 Medical Decision Making Vital Signs Vital Signs: Vital Signs Temperature 97.3 F L 08/23/22 08:41 Pulse Rate 94 08/23/22 08:41 Respiratory Rate 16 08/23/22 08:41 Blood Pressure 140/81 08/23/22 08
== END 2022-08-23 11:53 | disposition home or self-care (01) ==
PROVIDERS: Emergency Provider Emergency Medicine; PCP Emergency Medicine
DX: O20.0 Threatened abortion (principal); O99.331 Smoking (tobacco) complicating pregnancy, first trimester; F17.210 Nicotine dependence, cigarettes, uncomplicated; Z86.16 Personal history of COVID-19; Z3A.01 Less than 8 weeks gestation of pregnancy
CPT/HCPCS: 76801; 76817; 99284

== ENCOUNTER 2022-08-29 19:18 | Emergency (ER) | payer OTHER, SELFPAY ==
--- NOTE | ~2022-08-29 | US_ITS ---
EXAMINATION: US OB <=14 wk fetus w TV INDICATION: LLQ pain. r/o ectopic TECHNIQUE: Sonography of the pelvis was performed by transabdominal and transvaginal techniques. COMPARISON: None. RESULT: Uterus: Orientation: Retroverted. 7.5 x 4.1 x 5.2 cm. Myometrium: homogeneous echogenicity. 7 mm end ometrial stripe. Intrauterine gestational sac: Not seen. Right ovary: 2.2 x 2.0 x 1.7 cm. Normal sonographic appearance with physiologic follicles. . . Left ovary: 3.0 x 2.1 x 2.6 cm. Normal sonographic appearance with physiologic follicles. . Corpus luteal cyst. Pelvis free fluid: None. IMPRESSION: of unknown location. No intrauterine gestational sac identified. No adnexal mass or free pe lvic fluid. Reviewed, dictated and finalized at location K. IMPRESSION: of unknown location. No intrauterine gestational sac identified. No a dnexal mass or free pelvic fluid.
[2022-08-29 19:30] VITALS: BP 145/88; PULSE 84; RESP 16; TEMP 37.1; O2SAT 100
[2022-08-29 21:10] LABS: Basophils Absolute Auto 0.1 K/mm3 (0.0-0.1); Basophils Percent Auto 0.8 % (0.2-1.2); Eosinophils Absolute Auto 0.3 K/mm3 (0-0.3); Hematocrit 38.8 % (37.0-47.0); Hemoglobin 12.9 g/dL (12.0-15.0); Immature Granulocyte Absolute 0.02 K/mm3 (0.00-0.031); Immature Granulocyte Percent A 0.2 % (0-0.5); Lymphocytes Absolute Auto 3.34 K/mm3 (0.9-3.2); Lymphocytes Percent Auto 36.3 % (18.3-44.2); Mean Corpuscular HGB Conc 33.2 g/dl (32-36); Mean Corpuscular Hemoglobin 30.8 pg (26-34); Mean Corpuscular Volume 92.6 fl (80-100); Monocytes Absolute Auto 0.7 K/mm3 (0.1-0.6); Monocytes Percent Auto 7.5 % (2.6-8.5); Neutrophils Absolute Auto 4.8 K/mm3 (1.3-6.7); Neutrophils Percent Auto 52.2 % (45.5-73.1); Platelet Count Result 242 k/mm3 (150-375); Red Blood Count 4.19 M/mm3 (4.2-5.4); Red Cell Distribution Width 12.8 % (11.5-14.5); White Blood Count 9.2 K/mm3 (4.5-10.0)
[2022-08-29 21:22] LABS: Anion Gap 6 mmol/L (8-16); Blood Urea Nitrogen 8 mg/dL (7-17); Calcium 9.3 mg/dL (8.4-10.2); Carbon Dioxide 28 mmol/L (22-30); Chloride 107 mmol/L (98-107); Estimated CRCL calculation 120 ml/min; Estimated Glomerular Filt Rate > 60; Glucose 89 mg/dL (65-110); Potassium 3.2 mmol/L (3.4-5.0); Sodium 141 mmol/L (137-145)
[2022-08-29 21:36] LABS: Appearance Urine Cloudy (Clear); Bacteria Urine 4+ /hpf; Bilirubin Urine Negative (Negative); Blood Urine 1+ (Negative); Color Urine Yellow (Yellow); Glucose Urine UA Negative (Negative); Ketones Urine Negative (Negative); Leukocyte Esterase Ur 1+ LEU/UL (Negative); Nitrate Urine Negative (Negative); Protein Urine Negative (Negative); Specific Grav Ur 1.021 (1.001-1.035); Squamous Epithelial Cell Urine Many /hpf (Few); WBC Urine 51-100 /hpf; pH Urine 5.5 (5.0-9.0)
[2022-08-29 21:38] LABS: Add Urine Microscopic? YES
--- NOTE | 2022-08-29 21:48 | ED.GENADULT ---
HPI - General Adult General Chief complaint: Unspecified Stated complaint: low hcg Time Seen by Provider: 08/29/22 19:45 History of Present Illness HPI narrative: this is a 32-year-old female presenting ED with a concern for ectopic . Patient was seen here 1 week ago and found have a hCG of 13. Transvaginal ultrasound showed no evidence of gestation. She then followed up with her OB who repeated the hCG and had trended up to 100. Since then she has been having an ache in the left lower quadrant and is concerned that she is having an ectopic. She has appointment with her OBGYN on July 23 but states that she cannot wait that long. She denies vaginal bleeding or discharge. She denies urinary symptoms. Related Data Allergies Allergy/AdvReac Type Severity Reaction Status Date / Time cefaclor Allergy Mild Hives Verified 08/23/22 08:50 PMFSH Past Medical History Medical History Anxiety Arm fracture At risk for dental problems COVID-19 04/2021 Migraines Surgical History Surgical History No history of previous surgery Family History Family History Mother Heart disease Grandparent Diabetes mellitus Social History Social History Years smoked: 14 Smoking status: Current every day smoker Tobacco type: cigarettes Second hand tobacco smoke exposure: No Alcohol intake: never Substance use: never Living arrangements: with family Occupation/Education: occupation Gender identity (if verbalized by the patient): Female Exam Narrative: APPEARANCE: No apparent distress. Head: atraumatic. EYES: EOMI, NOSE: Atraumatic NECK: Trachea midline RESPIRATORY: No increased rate of breathing CTAB CARDIOVASCULAR: RRR, ABDOMINAL: Mild tenderness palpation in the left lower quadrant, no CVA tenderness, no guarding rebound of the abdomen. MUSCULOSKELETAl: No obvious deformities NEURO: Alert. Moving 4/4 extremities SKIN:: Warm, dry. Normal color PSYCHIATRIC: Normal affect Course Vital Signs Vital signs: Vital Signs Temperature 98.7 F 08/29/22 19:30 Pulse Rate 84 08/29/22 19:30 Respiratory Rate 16 08/29/22 19:30 Blood Pressure 145/88 H 08/29/22 19:30 Pulse Oximetry 100 08/29/22 19:30 Oxygen Delivery Room Air 08/29/22 19:30 Temperature 98.7 F 08/29/22 19:30 Pulse Rate 84 08/29/22 19:30 Respiratory Rate 16 08/29/22 19:30 Blood Pressure 145/88 H 08/29/22 19:30 Pulse Oximetry 100 08/29/22 19:30 Oxygen Delivery Room Air 08/29/22 19:30 Medical Decision Making MDM Narrative Medical decision making narrative: -Presentation: 32-year-old female presenting with left lower quadrant pain . Rule out ectopic has been ordered. -DDX includes but is not limited to: Ectopic, anxiety, UTI -Co-morbidities complicating care: frequent UTIs, anxiety -Social determinants of health: patient works from home, lives alone -External Chart Review: previous ER visits -Hx from independent Sources: none -Discussion of Management/Consultants: the -Independent interpretation of studies: CBC normal. Metabolic panel showed low potassium. This will be repleted. Urinalysis was indicative of infection. Patient will be treated with antibiotics. HCG 819. This is below the discriminatory zone. TVUS: of unknown location. No intrauterine gestational sac identified. No adnexal mass or free pelvic fluid. Dx tests considered but not ordered: none -Procedures: none -Interventions: none -Shared decision making / Disposition: transvaginal ultrasound did not show a in the uterus. Her HCG is too low and is below the discriminatory zone at this time. She will be encouraged to follow-up with her OBGYN. The patient left
--- NOTE | 2022-08-29 23:11 | PC.NURSE ---
Patient notified of prescriptions being sent to pharmacy and to be picked up first thing in morning and to follow up with OB in 2 days for repeat labs. MD Michaud aware patient had to leave.
--- NOTE | 2022-08-29 23:13 | ED.GENADULT ---
HPI - General Adult General Chief complaint: Unspecified Stated complaint: low hcg Time Seen by Provider: 08/29/22 19:45 Related Data Allergies Allergy/AdvReac Type Severity Reaction Status Date / Time cefaclor Allergy Mild Hives Verified 08/23/22 08:50 [facility] Past Medical History Medical History Anxiety Arm fracture At risk for dental problems COVID-19 04/2021 Migraines Surgical History Surgical History No history of previous surgery Family History Family History Mother Heart disease Grandparent Diabetes mellitus Social History Social History Years smoked: 14 Smoking status: Current every day smoker Tobacco type: cigarettes Second hand tobacco smoke exposure: No Alcohol intake: never Substance use: never Living arrangements: with family Occupation/Education: occupation Gender identity (if verbalized by the patient): Female Course Vital Signs Vital signs: Vital Signs Temperature 98.7 F 08/29/22 19:30 Pulse Rate 84 08/29/22 19:30 Respiratory Rate 16 08/29/22 19:30 Blood Pressure 145/88 H 08/29/22 19:30 Pulse Oximetry 100 08/29/22 19:30 Oxygen Delivery Room Air 08/29/22 19:30 Temperature 98.7 F 08/29/22 19:30 Pulse Rate 84 08/29/22 19:30 Respiratory Rate 16 08/29/22 19:30 Blood Pressure 145/88 H 08/29/22 19:30 Pulse Oximetry 100 08/29/22 19:30 Oxygen Delivery Room Air 08/29/22 19:30 Medical Decision Making Vital Signs Vital Signs: Vital Signs Temperature 98.7 F 08/29/22 19:30 Pulse Rate 84 08/29/22 19:30 Respiratory Rate 16 08/29/22 19:30 Blood Pressure 145/88 H 08/29/22 19:30 Pulse Oximetry 100 08/29/22 19:30 Oxygen Delivery Room Air 08/29/22 19:30 Temperature 98.7 F 08/29/22 19:30 Pulse Rate 84 08/29/22 19:30 Respiratory Rate 16 08/29/22 19:30 Blood Pressure 145/88 H 08/29/22 19:30 Pulse Oximetry 100 08/29/22 19:30 Oxygen Delivery Room Air 08/29/22 19:30 Lab Data 08/29/22 21:02 08/29/22 21:02 Labs: Lab Results 08/29/22 08/29/22 Range/Units 20:59 21:02 WBC 9.2 (4.5-10.0) K/mm3 RBC 4.19 L (4.2-5.4) M/mm3 Hgb 12.9 (12.0-15.0) g/dL Hct 38.8 (37.0-47.0) % MCV 92.6 (80-100) fl MCH 30.8 (26-34) pg MCHC 33.2 (32-36) g/dl RDW 12.8 (11.5-14.5) % Plt Count 242 (150-375) k/mm3 MPV 11.0 H (7.4-10.4) fl Immature Gran % (Auto) 0.2 (0-0.5) % Neut % (Auto) 52.2 (45.5-73.1) % Lymph % (Auto) 36.3 (18.3-44.2) % Brooks % (Auto) 7.5 (2.6-8.5) % Eos % (Auto) 3.0 (0-4.4) % Baso % (Auto) 0.8 (0.2-1.2) % Lymph # (Auto) 3.34 H (0.9-3.2) K/mm3 Brooks # (Auto) 0.7 H (0.1-0.6) K/mm3 Eos # (Auto) 0.3 (0-0.3) K/mm3 Baso # (Auto) 0.1 (0.0-0.1) K/mm3 Abs Immat Gran (auto) 0.02 (0.00-0.031) K/mm3 Absolute Neuts (auto) 4.8 (1.3-6.7) K/mm3 Absolute Nucleated RBC 0.0 (0.0-0.012) K/mm3 Nucleated RBC % 0.0 (0.0-0.2) % Sodium 141 (137-145) mmol/L Potassium 3.2 L (3.4-5.0) mmol/L Chloride 107 (98-107) mmol/L Carbon Dioxide 28 (22-30) mmol/L Anion Gap 6 L (8-16) mmol/L BUN 8 (7-17) mg/dL Creatinine 0.50 L (0.7-1.0) mg/dL Estim Creat Clear Calc 120 ml/min Estimated GFR > 60 (59 - ) Glucose 89 (65-110) mg/dL Calcium 9.3 (8.4-10.2) mg/dL Beta HCG, Quant 819.44 mIU/ML Urine Color Yellow (Yellow) Urine Appearance Cloudy H (Clear) Urine pH 5.5 (5.0-9.0) Ur Specific Cass 1.021 (1.001-1.035) Urine Protein Negative (Negative) mg/dL Urine Glucose (UA) Negative (Negative) mg/dL Urine Ketones Negative (Negative) mg/dL Ur Blood (Man) 1+ H (Negative) Urine Nitrate Negative (Negative) Urine Bilirub
== END 2022-08-29 23:13 | disposition home or self-care (01) ==
PROVIDERS: Emergency Provider Emergency Medicine; PCP Emergency Medicine
DX: O23.41 Unspecified infection of urinary tract in pregnancy, first trimester (principal); N39.0 Urinary tract infection, site not specified; O99.331 Smoking (tobacco) complicating pregnancy, first trimester; F17.210 Nicotine dependence, cigarettes, uncomplicated; Z3A.01 Less than 8 weeks gestation of pregnancy; Z86.16 Personal history of COVID-19
CPT/HCPCS: 36415; 76801; 76817; 80048; 81001; 84702; 85025; 87086; 99284

== ENCOUNTER 2022-09-15 08:35 | Emergency (ER) | payer OTHER, SELFPAY ==
[2022-09-15 08:46] VITALS: BP 115/81; PULSE 88; RESP 16; TEMP 37.4; O2SAT 100
--- NOTE | 2022-09-15 08:49 | ED.EYEPROB ---
HPI - Eye Problem General Chief complaint: Eye Problems Stated complaint: Eyes Irritation Time Seen by Provider: 09/15/22 08:49 Source: patient, RN notes reviewed and old records reviewed Mode of arrival: ambulatory Limitations: no limitations History of Present Illness HPI Narrative: 32-year-old female presents to the [facility] with eyes watering and itching since yesterday. Took 1 Zyrtec and did not making better. Denies any blurry vision or change in vision. States that her upper lids are mildly swollen without redness. Denies any discharge or crusting. Denies wearing contact lenses. Denies any trauma to the eye. Onset (ago): day(s) (1) Related Data Allergies Allergy/AdvReac Type Severity Reaction Status Date / Time cefaclor Allergy Mild Hives Verified 09/15/22 09:00 Review of Systems Review of Systems: All systems reviewed & are unremarkable except as noted in HPI and below Constitutional: Constitutional: Reports no additional constitutional complaints Eyes: Eyes: Reports as per HPI and Reports itchy eyes ENT: Reports system reviewed and no additional complaints, except as documented Cardiovascular: Cardiovascular: Reports no additional cardiovascular complaints, Denies chest pain and Denies dyspnea Respiratory: Respiratory: Reports no additional respiratory complaints, Denies chest congestion, Denies cough and Denies dyspnea Gastrointestinal: Gastrointestinal: Reports no additional gastrointestinal complaints, Denies abdominal pain, Denies nausea and Denies vomiting Musculoskeletal: Musculoskeletal: Reports no additional musculoskeletal complaints Integumentary/Breasts: Skin/Breast: Reports system reviewed and no additional complaints, except as docu Neurologic: Reports system reviewed and no additional complaints, except as documented Psychiatric: Psychiatric: Reports no additional psychiatric complaints Allergic/Immunologic: Allergic/Immunologic: Reports no additional allergic/immunologic complaints [facility] Past Medical History Medical History Anxiety Arm fracture At risk for dental problems COVID-19 04/2021 Migraines Surgical History Surgical History No history of previous surgery Family History Family History Mother Heart disease Grandparent Diabetes mellitus Social History Social History Years smoked: 14 Smoking status: Current every day smoker Tobacco type: cigarettes Second hand tobacco smoke exposure: No Alcohol intake: never Substance use: never Living arrangements: with family Occupation/Education: occupation Gender identity (if verbalized by the patient): Female Comments At the time of my signature, I reviewed and agree with the nursing past medical, surgical, social, and family history. There is no relevant family history pertinent to the patient complaint. Exam Const: General: cooperative, healthy appearing, comfortable, no acute distress, well developed, alert and well nourished Nutritional Appearance: well nourished Orientation/consciousness: patient oriented x3 Limitations: no limitations HENMT: Head: normal to inspection Ears: hearing grossly normal bilaterally and external ears normal Face/Nose/Sinus: Normal external nose present, Normal nares present, Normal nasal mucous membranes and turbinates present and normal facial exam Face and sinus: normal facial exam Mouth: Yes Normal oral and palatal mucosa present, Yes lip normal and Yes moist mucous membranes Throat: posterior oropharynx normal and uvula midline Eyes: General: appearance normal, both eyes and all related structures Visual Schuler: normal visual schuler by confrontation Alignment and Position: alignment normal Periorbital: periorbital findings normal Eyelids: eyelid abnor
== END 2022-09-15 09:06 | disposition home or self-care (01) ==
PROVIDERS: Emergency Provider Nurse Practitioner; PCP Emergency Medicine
DX: H57.89 Other specified disorders of eye and adnexa (principal); F17.210 Nicotine dependence, cigarettes, uncomplicated; Z86.16 Personal history of COVID-19
CPT/HCPCS: 99213; G0463

== ENCOUNTER 2022-10-21 10:51 | Emergency (ER) | payer OTHER, SELFPAY ==
[2022-10-21 11:02] VITALS: BP 115/72; PULSE 71; RESP 16; TEMP 36.8; O2SAT 100
[2022-10-21 11:06] VITALS: BP 115/72; PULSE 71; RESP 16; TEMP 36.8; O2SAT 100
--- NOTE | 2022-10-21 11:20 | ED.FEMALEGU ---
HPI - Female Genitourinary General Chief complaint: Skin/Abscess/Foreign Body Stated complaint: urinary issue Time Seen by Provider: 10/21/22 11:08 Source: patient, RN notes reviewed and old records reviewed Mode of arrival: ambulatory Limitations: no limitations History of Present Illness HPI Narrative: Patient presents today with a 2 day history of urinary frequency, dysuria, and lower abdominal pressure. Denies hematuria. Patient was diagnosed with the UTI at the beginning of August and was put on Omnicef, but states she never finished it. She has tried no medication for symptoms prior to arrival. Related Data Allergies Allergy/AdvReac Type Severity Reaction Status Date / Time cefaclor Allergy Mild Hives Verified 10/21/22 11:05 Review of Systems Review of Systems: CONSTITUTIONAL: Denies body aches, fever, chills, or sweats. EYES: Denies visual changes, redness, or discharge. ENT: Denies rhinorrhea, congestion, sore throat, or otalgia. CARDIOVASCULAR: Denies chest pain, palpitations, or edema. RESPIRATORY: Denies cough or dyspnea. GASTROINTESTINAL: Denies abdominal pain, nausea, vomiting, or diarrhea. GENITOURINARY: Denies hematuria.+ frequency, dysuria, lower abdominal pressure SKIN: Denies rash, itching, or wounds. MUSCULOSKELETAL: Denies back pain, joint pain, or myalgia. NEUROLOGIC: Denies headache, numbness, tingling, or weakness. PSYCH: Denies depression or anxiety. [facility] Past Medical History Medical History Anxiety Arm fracture At risk for dental problems COVID-19 04/2021 Migraines Surgical History Surgical History No history of previous surgery Family History Family History Mother Heart disease Grandparent Diabetes mellitus Social History Social History Years smoked: 14 Smoking status: Current every day smoker Tobacco type: cigarettes Second hand tobacco smoke exposure: No Alcohol intake: never Substance use: never Living arrangements: with family Occupation/Education: occupation Gender identity (if verbalized by the patient): Female Comments At time of signature, I have reviewed and agree with nursing past medical, surgical, social and family history unless otherwise noted. Please see nursing chart for further information. There is no relevant family history pertinent to the presenting complaint Exam Narrative: GENERAL: Well-appearing, well-nourished, and in no acute distress. HEAD: Normocephalic, atraumatic. EYES: EOMI. No redness or drainage. Conjunctivae normal. ENT: Mucous membranes pink and moist. NECK: Normal AROM. CHEST: No respiratory distress. Clear to auscultation. HEART: Regular rate and rhythm. No murmur appreciated. Normal peripheral pulses. ABDOMEN: Soft, nondistended, normal active bowel sounds.+ mild suprapubic tenderness EXTREMITIES: Normal range of motion. No edema. SKIN: Warm, dry, no rash. Capillary refill normal. Normal skin turgor. NEURO: No focal deficits. Alert and oriented x3. Gait steady. PSYCH: Normal affect. No signs of depression or anxiety. Course Course Level of Care: Express Care Visit Vital Signs Vital signs: Vital Signs Temperature 98.2 F 10/21/22 11:02 Pulse Rate 71 10/21/22 11:02 Respiratory Rate 16 10/21/22 11:02 Blood Pressure 115/72 10/21/22 11:02 Pulse Oximetry 100 10/21/22 11:02 Oxygen Delivery Room Air 10/21/22 11:02 Temperature 98.2 F 10/21/22 11:06 Pulse Rate 71 10/21/22 11:06 Respiratory Rate 16 10/21/22 11:06 Blood Pressure 115/72 10/21/22 11:06 Pulse Oximetry 100 10/21/22 11:06 Oxygen Delivery Room Air 10/21/22 11:06 Reviewed MDM - Female Genitourinary MDM Narrative Medical decision making narrative: Based o
== END 2022-10-21 11:27 | disposition home or self-care (01) ==
PROVIDERS: Emergency Provider Nurse Practitioner; PCP Emergency Medicine
DX: N30.00 Acute cystitis without hematuria (principal); F17.210 Nicotine dependence, cigarettes, uncomplicated; Z86.16 Personal history of COVID-19
CPT/HCPCS: 81003; 87086; 99213; G0463

== ENCOUNTER 2022-12-22 11:12 | Emergency (ER) | payer OTHER, SELFPAY ==
[2022-12-22 11:20] VITALS: BP 122/75; PULSE 96; RESP 16; TEMP 37.1; O2SAT 100
--- NOTE | 2022-12-22 11:36 | ED.NAVMDI ---
HPI - Nausea/Vomiting/Diarrhea General Chief complaint: Nausea/Vomiting/Diarrhea Stated complaint: Abdominal Pain Time Seen by Provider: 12/22/22 11:30 Source: patient, RN notes reviewed and old records reviewed Mode of arrival: ambulatory Limitations: no limitations History of Present Illness HPI Narrative: 32-year-old female who presents to [facility] with complaints 2 day history of nausea, headache, some vomiting and diarrhea reports she has not had a fever or any body aches.Patient reports that she has been drinking Power-hanna , taking Ibuprofen and also Pepto Bismol for her symptoms. Patient reports that she has had 5-6 loose stools since midnight and she did have one emesis this morning, Patient denies any abdominal pain or any pain noted on palpation.. MD elicited complaint: nausea, vomiting and diarrhea Onset (ago): day(s) (day 2 of symptoms) Description of vomiting: food contents Description of diarrhea: watery Associated nausea: Yes Associated abdominal pain: No Treatment prior to arrival: fluids and other (Ibuprofen, Pepto Bismol) Related Data Allergies Allergy/AdvReac Type Severity Reaction Status Date / Time cefaclor Allergy Mild Hives Verified 12/22/22 11:19 Review of Systems Review of Systems: CONSTITUTIONAL: Denies fever, chills, or sweats. ENT: Denies rhinorrhea, congestion, sore throat, or otalgia. CARDIOVASCULAR: Denies chest pain, palpitations, or edema. RESPIRATORY: Denies cough or dyspnea. GASTROINTESTINAL: Reports no abdominal pain,Reports nausea, vomiting, diarrhea. GENITOURINARY: Denies dysuria or hematuria. SKIN: Denies rash or itching. MUSCULOSKELETAL: Denies back pain, joint pain, or myalgia. NEUROLOGIC: Reports some headache,no numbness, or weakness. All systems reviewed & are unremarkable except as noted in HPI and below PMFSH Past Medical History Medical History Anxiety Arm fracture At risk for dental problems COVID-19 04/2021 Migraines Surgical History Surgical History No history of previous surgery Family History Family History Mother Heart disease Grandparent Diabetes mellitus Social History Social History Years smoked: 14 Smoking status: Current every day smoker Tobacco type: cigarettes Second hand tobacco smoke exposure: No Alcohol intake: never Substance use: never Living arrangements: with family Occupation/Education: occupation Gender identity (if verbalized by the patient): Female Comments At time of signature, agree with nursing past medical, surgical, social and family history. There is no relevant family history pertinent to the presenting complaint Exam Narrative: GENERAL: Well-appearing, well-nourished, and in no acute distress,afebrile HEAD: Normocephalic, atraumatic. EYES: PERRLA, conjunctivae clear, and EOMI. ENT: Nares clear. Mucous membranes moist. Oropharynx without edema, erythema, or lesions. Tonsils not enlarged and without exudate. NECK: Supple. No lymphadenopathy CHEST: Speaks in full sentences. No respiratory distress.SAO2 100% on room air HEART: Regular rate and rhythm. ABDOMEN: Soft, flat, nondistended. No guarding, rebound tenderness, or rigid. No pulsatilla masses. Bowel sounds present in all four quadrants. No organomegaly. Negative Veloz?s sign. No periumbilical tenderness. No Supra public tenderness or distension. Good femoral pulses bilaterally. No hernia noted. No scars or surface trauma. Day 2 of diarrhea and nausea and vomiting SKIN: Warm, dry, no rash. NEURO:? Alert and oriented x3. PSYCH: Normal mood and affect Course Course Emergency Course: Patient is aware of diagnosis, understands and agrees to treatment plan.? Anticipatory guidance given.? Patient agrees to f
== END 2022-12-22 11:56 | disposition home or self-care (01) ==
PROVIDERS: Emergency Provider Registered Nurse; PCP Emergency Medicine
DX: K52.9 Noninfective gastroenteritis and colitis, unspecified (principal); F17.210 Nicotine dependence, cigarettes, uncomplicated
CPT/HCPCS: 99213; G0463

== ENCOUNTER 2023-01-21 09:45 | Emergency (ER) | payer OTHER, SELFPAY ==
[2023-01-21 10:02] VITALS: BP 124/74; PULSE 84; RESP 18; TEMP 37.2; O2SAT 100
--- NOTE | 2023-01-21 10:20 | ED.URI ---
HPI - URI/Sore Throat General Chief Complaint: Upper Respiratory Infection Stated Complaint: sore throat Time Seen by Provider: 01/21/23 10:20 History of Present Illness HPI Narrative: 33-year-old female presented for complaint of sore throat for about 2 days. Endorses seeing white mucus on the right tonsil, which she has been removing with a Q-tip. Also reports recent cough and nasal congestion for about 2 weeks. Denies Headache, shortness of breath, nausea, vomiting, fevers or chills. Not taking anything for symptoms. Related Data Home Medications Medication Instructions Recorded Confirmed No Home Medications 01/21/23 01/21/23 Allergies Allergy/AdvReac Type Severity Reaction Status Date / Time cefaclor Allergy Mild Hives Verified 01/21/23 10:16 Review of Systems Review of Systems: CONSTITUTIONAL: Denies body aches, fever, chills, or sweats. EYES: Denies visual changes, redness, or discharge. ENT: Reports sore throat, rhinorrhea, congestion CARDIOVASCULAR: Denies chest pain, palpitations, or edema. RESPIRATORY: Denies dyspnea. GASTROINTESTINAL: Denies abdominal pain, nausea, vomiting, or diarrhea. SKIN: Denies rash, itching, or wounds. MUSCULOSKELETAL: Denies back pain, joint pain, or myalgia. NEUROLOGIC: Denies headache PMFSH Past Medical History Medical History Anxiety Arm fracture At risk for dental problems COVID-19 04/2021 Migraines Surgical History Surgical History No history of previous surgery Family History Family History Mother Heart disease Grandparent Diabetes mellitus Social History Social History Years smoked: 14 Smoking status: Current every day smoker Tobacco type: cigarettes Second hand tobacco smoke exposure: No Alcohol intake: never Substance use: never Living arrangements: with family Occupation/Education: occupation Gender identity (if verbalized by the patient): Female Exam Narrative: GENERAL: mildly Ill-appearing, no acute distress. EYES: conjunctivae clear ENT: Mucous membranes moist. Nasal congestion.TM pearly owens with normal light reflex bilaterally; no tragal tenderness. Oropharynx mildly erythematous without lesions. Tonsils enlarged 1+ and without exudate. No drooling, no hoarseness, no trismus, uvula midline. No tripod positioning, hot potato voice, or soft palate swelling. NECK: Supple. right anterior cervical lymphadenopathy CHEST: Clear to auscultation, breath sounds equal. No respiratory distress, speaks in full sentences. HEART: Regular rate and rhythm. No murmur heard. SKIN: Warm, dry, no rash. NEURO: Alert and oriented x3. Course Course Emergency Course: Patient is aware of diagnosis, understands and agrees to treatment plan. Anticipatory guidance given. Patient agrees to follow-up as directed and is aware of reasons to seek care at the emergency department. Portions of this record may have been created with voice recognition software Level of Care: Express Care Visit Vital Signs Vital signs: Vital Signs Temperature 99 F 01/21/23 10:02 Pulse Rate 84 01/21/23 10:02 Respiratory Rate 18 01/21/23 10:02 Blood Pressure 124/74 01/21/23 10:02 Pulse Oximetry 100 01/21/23 10:02 Oxygen Delivery Room Air 01/21/23 10:02 Temperature 99 F 01/21/23 10:02 Pulse Rate 84 01/21/23 10:02 Respiratory Rate 18 01/21/23 10:02 Blood Pressure 124/74 01/21/23 10:02 Pulse Oximetry 100 01/21/23 10:02 Oxygen Delivery Room Air 01/21/23 10:02 MDM - URI/Sore Throat MDM Narrative Medical decision making narrative: strep result reviewed with pt. Will await culture. Advise supportive treatments. Patient is appropriate for outpatient treatment and follow-up
== END 2023-01-21 10:28 | disposition home or self-care (01) ==
PROVIDERS: Emergency Provider Nurse Practitioner Family; PCP Emergency Medicine
DX: J06.9 Acute upper respiratory infection, unspecified (principal); F17.210 Nicotine dependence, cigarettes, uncomplicated; Z86.16 Personal history of COVID-19
CPT/HCPCS: 87081; 87880; 99213; G0463

== ENCOUNTER 2023-02-11 10:02 | Emergency (ER) | payer OTHER, SELFPAY ==
[2023-02-11 10:18] VITALS: BP 121/76; PULSE 67; RESP 16; TEMP 37.4; O2SAT 100
[2023-02-11 10:19] VITALS: BP 121/76; PULSE 67; RESP 16; TEMP 37.4; O2SAT 100
--- NOTE | 2023-02-11 11:04 | ED.GENADULT ---
HPI - General Adult General Chief complaint: Upper Respiratory Infection Stated complaint: cough,scratchy throat,shortness of breath Source: patient Mode of arrival: ambulatory Limitations: no limitations History of Present Illness HPI narrative: Patient presents for evaluation of hoarse voice since yesterday. She spent time outdoors with her mother and states that was cold and rainy at that time. She denies sore throat, fever, chills, nausea, vomiting, and shortness of breath. She has an occasional cough. She smokes 1/2 ppd. Her boyfriend, with whom she lives, has nasal congestion and drainage. She has not tried any therapies for her symptoms. Related Data Home Medications Medication Instructions Recorded Confirmed No Home Medications 02/11/23 02/11/23 Allergies Allergy/AdvReac Type Severity Reaction Status Date / Time cefaclor Allergy Mild Hives Verified 02/11/23 10:18 Review of Systems Review of Systems: CONSTITUTIONAL: Denies fever, chills, or sweats. EYES: Denies visual changes, redness, or discharge. ENT: Reports hoarse voice. Denies rhinorrhea, congestion, sore throat, or otalgia. CARDIOVASCULAR: Denies chest pain, palpitations, or edema. RESPIRATORY: She reports occasional cough. Denies dyspnea. GASTROINTESTINAL: Denies abdominal pain, nausea, vomiting, or diarrhea. GENITOURINARY: Denies dysuria or hematuria. SKIN: Denies rash or itching. MUSCULOSKELETAL: Denies back pain, joint pain, or myalgia. NEUROLOGIC: Denies headache, numbness, dizziness, or weakness. PSYCHIATRIC: Denies anxiety or depression. [facility] Past Medical History Medical History Anxiety Arm fracture At risk for dental problems COVID-19 04/2021 Migraines Surgical History Surgical History No history of previous surgery Family History Family History Mother Heart disease Grandparent Diabetes mellitus Social History Social History (Updated 02/11/23 @ 11:07 by MARIETTA Woodward, EMERITA) Smoking packs per day: 0.5 Smoking cigarettes per day: 10.0 Years smoked: 14 Smoking pack-years: 7.00 Smoking status: Current every day smoker Tobacco type: cigarettes Second hand tobacco smoke exposure: No Alcohol intake: never Substance use: never Living arrangements: with family Occupation/Education: occupation Gender identity (if verbalized by the patient): Female Exam Narrative: GENERAL: Well-appearing, well-nourished, and in no acute distress. HEAD: Normocephalic, atraumatic. EYES: PERRLA and EOMI. ENT: Nares clear, no rhinorrhea or epistaxis. Mucous membranes moist. Oropharynx without tonsillar hypertrophy exudate or other lesions. Bilateral TMs pearly owens nonbulging NECK: Supple. No adenopathy or masses. No carotid bruits or JVD CHEST: Clear to auscultation. No respiratory distress. No wheezes rales or rhonchi HEART: Regular rate and rhythm. No murmur heard. Normal peripheral pulses. ABDOMEN: Soft, nontender, nondistended, normal active bowel sounds. EXTREMITIES: Normal range of motion. No edema. SKIN: Warm, dry, no rash. NEURO: No focal deficits. Alert and oriented x3. PSYCH: Normal mood and affect. Course Course Emergency Course: This is a 33-year-old female who presented for evaluation of hoarse voice. I did offer to swab her for COVID, flu, strep. She declined. I recommended she drink tea with honey for suspected laryngitis. Cepacol lozenges may help. Follow up with primary provider. Go to the ER for worsening symptoms. Patient in agreement of care. Level of Care: Express Care Visit Vital Signs Vital signs: Vital Signs Temperature 37.4 C 02/11/23 10:18 Pulse Rate 67 02/11/23 10:18 Respiratory Rate 16 02/11/23 10:18 Blood Pressure 121/76 02/11/23 10:18 Pulse Oximetry 100
== END 2023-02-11 11:06 | disposition home or self-care (01) ==
PROVIDERS: Emergency Provider Nurse Practitioner; PCP Emergency Medicine
DX: J04.0 Acute laryngitis (principal); F17.210 Nicotine dependence, cigarettes, uncomplicated; Z86.16 Personal history of COVID-19
CPT/HCPCS: 99211; G0463

== ENCOUNTER 2023-03-26 10:59 | Emergency (ER) | payer OTHER, SELFPAY ==
[2023-03-26 11:08] VITALS: BP 118/82; PULSE 85; RESP 16; TEMP 37.1; O2SAT 100
--- NOTE | 2023-03-26 11:19 | ED.FEMALEGU ---
HPI - Female Genitourinary General Chief complaint: Urogenital-Female Stated complaint: urinary issue Time Seen by Provider: 03/26/23 11:19 Source: patient Mode of arrival: ambulatory Limitations: no limitations History of Present Illness HPI Narrative: 33-year-old female presents with complaint of dysuria, urgency, frequency with decreased urine output for the past 4 days. Afebrile. Denies abdominal or back pain. Denies nausea vomiting. Last menstrual period was March 07. To concerns for . No concerns for STI. All systems reviewed and negative except as noted above. Related Data Allergies Allergy/AdvReac Type Severity Reaction Status Date / Time cefaclor Allergy Mild Hives Verified 03/26/23 11:23 Review of Systems Review of Systems: CONSTITUTIONAL: Denies fever, chills, or sweats. EYES: Denies visual changes, redness, or discharge. ENT: Denies rhinorrhea, congestion, sore throat, or otalgia. CARDIOVASCULAR: Denies chest pain, palpitations, or edema. RESPIRATORY: Denies cough or dyspnea. GASTROINTESTINAL: Denies abdominal pain, nausea, vomiting, or diarrhea. GENITOURINARY: Reports dysuria, urgency, frequency. Denies hematuria. SKIN: Denies rash or itching. MUSCULOSKELETAL: Denies back pain, joint pain, or myalgia. NEUROLOGIC: Denies headache, numbness, or weakness. PSYCHIATRIC: Denies anxiety or depression. All other systems reviewed are negative, except as documented in HPI. [facility] Past Medical History Medical History Anxiety Arm fracture At risk for dental problems COVID-19 04/2021 Migraines Surgical History Surgical History No history of previous surgery Family History Family History Mother Heart disease Grandparent Diabetes mellitus Social History Social History (Updated 02/11/23 @ 11:07 by MARIETTA Woodward, ) Smoking packs per day: 0.5 Smoking cigarettes per day: 10.0 Years smoked: 14 Smoking pack-years: 7.00 Smoking status: Current every day smoker Tobacco type: cigarettes Second hand tobacco smoke exposure: No Alcohol intake: never Substance use: never Living arrangements: with family Occupation/Education: occupation Gender identity (if verbalized by the patient): Female Comments At time of signature, agree with nursing past medical, surgical, social and family history. There is no relevant family history pertinent to the presenting complaint. Exam Narrative: GENERAL: This is a well-nourished, well-developed patient, in no apparent distress. HEAD: normocephalic, atraumatic. EYES: PERRL. Sclera clear/white. Vision is grossly intact. EARS: External ears normal NOSE: External nose normal NECK: Neck supple, non-tender without lymphadenopathy, masses or thyromegaly. CARDIOVASCULAR: Regular rate and rhythm without murmurs, gallops, or rubs. RESPIRATORY: Clear to auscultation. Breath sounds equal bilaterally. No wheezes, rales, or rhonchi. SKIN: warm, Dry, intact with no suspicious lesions or rash, good texture and turgor. NEURO: awake, alert, and oriented to person, place and time. There were no obvious focal neurologic abnormalities. EXTREMITIES: No joint tenderness, effusion, or edema noted. Course Course Level of Care: Express Care Visit Vital Signs Vital signs: Vital Signs Temperature 37.1 C 03/26/23 11:08 Pulse Rate 85 03/26/23 11:08 Respiratory Rate 16 03/26/23 11:08 Blood Pressure 118/82 03/26/23 11:08 Pulse Oximetry 100 03/26/23 11:08 Temperature 37.1 C 03/26/23 11:08 Pulse Rate 85 03/26/23 11:08 Respiratory Rate 16 03/26/23 11:08 Blood Pressure 118/82 03/26/23 11:08 Pulse Oximetry 100 03/26/23 11:08 reviewed MDM - Female Genitourinary MDM Narrative Medical decision making narrat
== END 2023-03-26 11:49 | disposition home or self-care (01) ==
PROVIDERS: Emergency Provider Nurse Practitioner Family
DX: N39.0 Urinary tract infection, site not specified (principal); F17.210 Nicotine dependence, cigarettes, uncomplicated
CPT/HCPCS: 81003; 87086; 99213; G0463

== ENCOUNTER 2023-05-15 10:13 | Emergency (ER) | payer OTHER, SELFPAY ==
--- NOTE | 2023-05-15 10:19 | ED.URI ---
HPI - URI/Sore Throat General Chief Complaint: Upper Respiratory Infection Stated Complaint: throat hurts, sores in mouth Time Seen by Provider: 05/15/23 10:31 Source: patient, RN notes reviewed and old records reviewed Mode of arrival: ambulatory Limitations: no limitations History of Present Illness HPI Narrative: 33-year-old female presents to the [facility] with complaints of a sore throat since yesterday, also concern for some sores in her mouth. Patient states that she also has not had a bowel movement in a week. Denies any abdominal pain. States she just does not know what to take you must know what she can take for relieving the constipation Related Data Allergies Allergy/AdvReac Type Severity Reaction Status Date / Time cefaclor Allergy Mild Hives Verified 05/15/23 10:46 Review of Systems Review of Systems: All systems reviewed & are unremarkable except as noted in HPI and below Constitutional: Constitutional: Reports no additional constitutional complaints Eyes: Eyes: Reports no additional eye complaints ENT: Reports as per HPI, Reports mouth pain and Reports sore throat Cardiovascular: Cardiovascular: Reports no additional cardiovascular complaints, Denies chest pain and Denies dyspnea Respiratory: Respiratory: Reports no additional respiratory complaints, Denies chest congestion, Denies cough and Denies dyspnea Gastrointestinal: Gastrointestinal: Reports as per HPI, Denies abdominal pain, Reports constipation, Denies nausea and Denies vomiting Musculoskeletal: Musculoskeletal: Reports no additional musculoskeletal complaints Integumentary/Breasts: Skin/Breast: Reports system reviewed and no additional complaints, except as docu Neurologic: Reports system reviewed and no additional complaints, except as documented Psychiatric: Psychiatric: Reports no additional psychiatric complaints Allergic/Immunologic: Allergic/Immunologic: Reports no additional allergic/immunologic complaints [facility] Past Medical History Medical History Anxiety Arm fracture At risk for dental problems COVID-19 04/2021 Migraines Surgical History Surgical History No history of previous surgery Family History Family History Mother Heart disease Grandparent Diabetes mellitus Social History Social History Smoking packs per day: 0.5 Smoking cigarettes per day: 10.0 Years smoked: 14 Smoking pack-years: 7.00 Smoking status: Current every day smoker Tobacco type: cigarettes Second hand tobacco smoke exposure: No Alcohol intake: never Substance use: never Living arrangements: with family Occupation/Education: occupation Gender identity (if verbalized by the patient): Female Comments At the time of my signature, I reviewed and agree with the nursing past medical, surgical, social, and family history. There is no relevant family history pertinent to the patient complaint. Exam Const: General: cooperative, healthy appearing, comfortable, no acute distress, well developed, alert and well nourished Nutritional Appearance: well nourished Orientation/consciousness: patient oriented x3 Limitations: no limitations HENMT: Head: normal to inspection Ears: hearing grossly normal bilaterally, external ears normal, TM's normal bilaterally, EAC's normal, mastoids normal and no periauricular adenopathy Face/Nose/Sinus: Normal external nose present, Normal nares present, Normal nasal mucous membranes and turbinates present, normal facial exam and face symmetric Face and sinus: normal facial exam, sinuses nontender and face symmetric Mouth: Yes Normal oral and palatal mucosa present, Yes lip normal, Yes tongue normal, Yes moist mucous membranes and Yes other (Canker sore bottom lip, inside) Throat: post
[2023-05-15 10:34] VITALS: BP 119/80; PULSE 78; RESP 16; TEMP 37.2; O2SAT 98
== END 2023-05-15 11:00 | disposition home or self-care (01) ==
PROVIDERS: Emergency Provider Nurse Practitioner
DX: K12.0 Recurrent oral aphthae (principal); J02.9 Acute pharyngitis, unspecified; K59.00 Constipation, unspecified; F17.210 Nicotine dependence, cigarettes, uncomplicated; Z86.16 Personal history of COVID-19
CPT/HCPCS: 87081; 87880; 99213; G0463

== ENCOUNTER 2023-06-03 12:58 | Emergency (ER) | payer OTHER, SELFPAY ==
[2023-06-03 13:43] VITALS: BP 106/72; PULSE 63; RESP 16; TEMP 37.1; O2SAT 100
== END 2023-06-03 15:15 | disposition left against medical advice (07) ==
PROVIDERS: Emergency Provider Internal Medicine Hematology & Oncology
DX: Z53.21 Procedure and treatment not carried out due to patient leaving prior to being seen by health care provider (principal)
CPT/HCPCS: 99199

== ENCOUNTER 2023-06-06 08:07 | Emergency (ER) | payer OTHER, SELFPAY ==
--- NOTE | 2023-06-06 08:18 | ED.FEMALEGU ---
HPI - Female Genitourinary General Chief complaint: Urogenital-Female Stated complaint: Vaginal Problems Time Seen by Provider: 06/06/23 08:18 Source: patient Mode of arrival: ambulatory Limitations: no limitations History of Present Illness HPI Narrative: 33 yo F presents with c/o herpes outbreak to labia. Reports 5 vesicles in a cluster. Was diagnosed with HSV 2 several years ago. here for antiviral. Was not able to get into [facility]. all systems reviewed and negative except as noted above. Related Data Allergies Allergy/AdvReac Type Severity Reaction Status Date / Time cefaclor Allergy Mild Hives Verified 06/06/23 08:16 Review of Systems Review of Systems: CONSTITUTIONAL: Denies fever, chills, or sweats. EYES: Denies visual changes, redness, or discharge. ENT: Denies rhinorrhea, congestion, sore throat, or otalgia. CARDIOVASCULAR: Denies chest pain, palpitations, or edema. RESPIRATORY: Denies cough or dyspnea. GASTROINTESTINAL: Denies abdominal pain, nausea, vomiting, or diarrhea. GENITOURINARY: Denies dysuria or hematuria. SKIN: Reports vesicles to labia MUSCULOSKELETAL: Denies back pain, joint pain, or myalgia. NEUROLOGIC: Denies headache, numbness, or weakness. PSYCHIATRIC: Denies anxiety or depression. All other systems reviewed are negative, except as documented in HPI. [facility] Past Medical History Medical History Anxiety Arm fracture At risk for dental problems COVID-19 04/2021 Migraines Surgical History Surgical History No history of previous surgery Family History Family History Mother Heart disease Grandparent Diabetes mellitus Social History Social History Smoking packs per day: 0.5 Smoking cigarettes per day: 10.0 Years smoked: 14 Smoking pack-years: 7.00 Smoking status: Current every day smoker Tobacco type: cigarettes Second hand tobacco smoke exposure: No Alcohol intake: never Substance use: never Living arrangements: with family Occupation/Education: occupation Gender identity (if verbalized by the patient): Female Comments At time of signature, agree with nursing past medical, surgical, social and family history. There is no relevant family history pertinent to the presenting complaint. Exam Narrative: GENERAL: This is a well-nourished, well-developed patient, in no apparent distress. HEAD: normocephalic, atraumatic. EYES: PERRL. Sclera clear/white. Vision is grossly intact. EARS: External ears normal NOSE: External nose normal NECK: Neck supple, non-tender without lymphadenopathy, masses or thyromegaly. CARDIOVASCULAR: Regular rate and rhythm without murmurs, gallops, or rubs. RESPIRATORY: Clear to auscultation. Breath sounds equal bilaterally. No wheezes, rales, or rhonchi. SKIN: warm, Dry, intact with no suspicious lesions or rash, good texture and turgor. NEURO: awake, alert, and oriented to person, place and time. There were no obvious focal neurologic abnormalities. EXTREMITIES: No joint tenderness, effusion, or edema noted. UROGENITAL: exam deferred Course Course Level of Care: Express Care Visit Vital Signs Vital signs: Vital Signs Temperature 37.5 C 06/06/23 08:19 Pulse Rate 64 06/06/23 08:19 Respiratory Rate 16 06/06/23 08:19 Blood Pressure 112/76 06/06/23 08:19 Pulse Oximetry 100 06/06/23 08:19 Oxygen Delivery Room Air 06/06/23 08:19 Temperature 37.5 C 06/06/23 08:19 Pulse Rate 64 06/06/23 08:19 Respiratory Rate 16 06/06/23 08:19 Blood Pressure 112/76 06/06/23 08:19 Pulse Oximetry 100 06/06/23 08:19 Oxygen Delivery Room Air 06/06/23 08:19 reviewed MDM - Female Genitourinary MDM Narrative Medical decision making narrative: At time of signature, agree wi
[2023-06-06 08:19] VITALS: BP 112/76; PULSE 64; RESP 16; TEMP 37.5; O2SAT 100
== END 2023-06-06 08:30 | disposition home or self-care (01) ==
PROVIDERS: Emergency Provider Nurse Practitioner Family
DX: A60.00 Herpesviral infection of urogenital system, unspecified (principal); F17.210 Nicotine dependence, cigarettes, uncomplicated; Z86.16 Personal history of COVID-19
CPT/HCPCS: 99213; G0463

== ENCOUNTER 2023-06-22 15:32 | Emergency (ER) | payer OTHER, SELFPAY ==
[2023-06-22 15:40] VITALS: BP 111/74; PULSE 83; RESP 16; TEMP 37.1; O2SAT 99
--- NOTE | 2023-06-22 16:05 | ED.URI ---
HPI - URI/Sore Throat General Chief Complaint: Urogenital-Female Stated Complaint: throat hurts,urinary issue,spotting, Time Seen by Provider: 06/22/23 15:49 Source: patient and RN notes reviewed Mode of arrival: ambulatory Limitations: no limitations History of Present Illness HPI Narrative: Patient presents today complaining of sore throat since last night. Denies any additional upper respiratory symptoms to include congestion, rhinorrhea, cough. She has tried no [id number] treatment for these symptoms prior to arrival. She also reports a one-week history of some urinary frequency and urgency. She had some vaginal spotting today. She had a positive test yesterday with an LMP of 05/17/2023. No abdominal pain, back pain. She had an ectopic last year. She has an OBGYN appointment set up for early next week to follow-up regarding this spotting. Related Data Home Medications Medication Instructions Recorded Confirmed No Home Medications 06/22/23 06/22/23 Allergies Allergy/AdvReac Type Severity Reaction Status Date / Time cefaclor Allergy Mild Hives Verified 06/22/23 15:39 Review of Systems Review of Systems: CONSTITUTIONAL: Denies body aches, fever, chills, or sweats. EYES: Denies visual changes, redness, or discharge. ENT: Denies rhinorrhea, congestion, or otalgia.+ sore throat CARDIOVASCULAR: Denies chest pain, palpitations, or edema. RESPIRATORY: Denies cough or dyspnea. GASTROINTESTINAL: Denies abdominal pain, nausea, vomiting, or diarrhea. GENITOURINARY:+ dysuria, urgency, vaginal spotting SKIN: Denies rash, itching, or wounds. MUSCULOSKELETAL: Denies back pain, joint pain, or myalgia. NEUROLOGIC: Denies headache, numbness, tingling, or weakness. PSYCH: Denies depression or anxiety. [facility] Past Medical History Medical History (Updated 06/22/23 @ 16:13 by Tianna Hatch, MARIETTA, EMERITA) Anxiety Arm fracture At risk for dental problems COVID-19 04/2021 Ectopic Migraines Surgical History Surgical History No history of previous surgery Family History Family History Mother Heart disease Grandparent Diabetes mellitus Social History Social History Smoking packs per day: 0.5 Smoking cigarettes per day: 10.0 Years smoked: 14 Smoking pack-years: 7.00 Smoking status: Current every day smoker Tobacco type: cigarettes Second hand tobacco smoke exposure: No Alcohol intake: never Substance use: never Living arrangements: with family Occupation/Education: occupation Gender identity (if verbalized by the patient): Female Comments At time of signature, I have reviewed and agree with nursing past medical, surgical, social and family history unless otherwise noted. Please see nursing chart for further information. There is no relevant family history pertinent to the presenting complaint Exam Narrative: GENERAL: Well-appearing, well-nourished, and in no acute distress. HEAD: Normocephalic, atraumatic. EYES: EOMI. No redness or drainage. Conjunctivae normal. ENT: Mucous membranes pink and moist. Nares clear. No rhinorrhea. TMs normal bilaterally. Throat mildly erythematous without edema or exudate. Small amount of postnasal drainage. Uvula midline. NECK: Normal AROM. Supple. No lymphadenopathy. CHEST: No respiratory distress. Clear to auscultation. HEART: Regular rate and rhythm. No murmur appreciated. ABDOMEN: Soft, nontender, nondistended, normal active bowel sounds. MUSCULOSKELETAL: No bony tenderness. EXTREMITIES: Normal range of motion. No edema. SKIN: Warm, dry, no rash. Capillary refill normal. Normal skin turgor. NEURO: No focal deficits. Alert and oriented x3. Gait steady. PSYCH: Normal affect. No signs of depression or anxiety.
== END 2023-06-22 16:20 | disposition home or self-care (01) ==
PROVIDERS: Emergency Provider Nurse Practitioner
DX: O99.519 Diseases of the respiratory system complicating pregnancy, unspecified trimester (principal); J02.9 Acute pharyngitis, unspecified; Z86.16 Personal history of COVID-19; O99.330 Smoking (tobacco) complicating pregnancy, unspecified trimester; Z3A.00 Weeks of gestation of pregnancy not specified; F17.210 Nicotine dependence, cigarettes, uncomplicated
CPT/HCPCS: 81003; 81025; 87081; 87880; 99213; G0463

== ENCOUNTER 2023-06-29 07:33 | Emergency (ER) | payer OTHER, SELFPAY ==
--- NOTE | ~2023-06-29 | US_ITS ---
. EXAMINATION: US OB <=14 wk fetus w TV DATE: 06/29/2023 09:01 INDICATION: Vaginal bleeding. . TECHNIQUE: Real-time transabdominal and transvaginal pelvic ultrasound was performed. COMPARISON: Ultrasound 08/29/2022 FINDINGS: TRANSABDOMINAL ULTRASOUND: The uterus measures 7.6 x 4.9 x 7.0 cm. TRANSVAGINAL ULTRASOUND: There is an intrauterine gestational sac. A yolk sac is identified. The fet al crown rump length measures 4 mm, which correlates with an estimated gestational age of 6 weeks and 1 day(s). heart motion is not identified, which may be normal at this size. The right ovary me asures 4.3 x 2.8 x 4.0 cm. The left ovary measures 2.6 x 2.3 x 2.1 cm. There is no free fluid in the pelvis. IMPRESSION: 1. Single intrauterine gestation with estimated gestational age of 6 weeks and 1 day. Reviewed, dictated and finalized at location A. [facility] ACCOUNT MANAGER
[2023-06-29 07:38] VITALS: BP 125/76; PULSE 90; RESP 16; TEMP 36.9; O2SAT 100
--- NOTE | 2023-06-29 08:07 | ED.FEMALEGU ---
HPI - Female Genitourinary General Chief complaint: Vaginal Bleeding Stated complaint: Vaginal Bleed Time Seen by Provider: 06/29/23 07:40 History of Present Illness HPI Narrative: 33 old female with history of ectopic last year presenting to the emergency department for evaluation or vaginal bleeding. Patient did have a test last week that was positive with a beta hCG approximately 11,000. Patient follows up with Dr. Goldman in [place]. Last night patient began having some spotting and then this morning had some vaginal cramping and vaginal bleeding. Patient was concerned due to her prior history of ectopic and patient has not yet had an ultrasound to confirm an intrauterine . Related Data Home Medications Medication Instructions Recorded Confirmed No Home Medications 06/22/23 06/22/23 Allergies Allergy/AdvReac Type Severity Reaction Status Date / Time cefaclor Allergy Mild Hives Verified 06/29/23 07:43 Review of Systems Review of Systems: All systems reviewed & are unremarkable except as noted in HPI and below PMFSH Past Medical History Medical History (Updated 06/29/23 @ 09:28 by Hammad Guerrier MD) Anxiety Arm fracture At risk for dental problems COVID-19 04/2021 Ectopic Migraines Surgical History Surgical History No history of previous surgery Family History Family History Mother Heart disease Grandparent Diabetes mellitus Social History Social History Smoking packs per day: 0.5 Smoking cigarettes per day: 10.0 Years smoked: 14 Smoking pack-years: 7.00 Smoking status: Current every day smoker Tobacco type: cigarettes Second hand tobacco smoke exposure: No Alcohol intake: never Substance use: never Living arrangements: with family Occupation/Education: occupation Gender identity (if verbalized by the patient): Female Exam Narrative: APPEARANCE: No significant distress HEAD: normocephalic, atraumatic. EYES: PERRLA/EOMI, conjunctivae clear. NOSE: Normal no drainage EARS:TMS clear with good light reflex. THROAT: Pharynx clear, no exudate. NECK: Supple. No adenopathy, no masses. RESPIRATORY: Airway patent, respirations nonlabored. Clear to auscultation bilaterally, no rales, rhonchi, wheezing. CARDIOVASCULAR: Regular rate and rhythm without murmurs rubs or gallops. ABDOMINAL: Suprapubic tenderness to palpation, nonsurgical abdomen MUSCULOSKELETAL: Moves all extremities. Strength/ROM intact, No edema, No calf tenderness. NEURO: Alert. Cranial nerves II through XII intact. Grossly intact SKIN: Warm, dry. Normal Color Course Course Emergency Course: Ultrasound showed no evidence of ectopic and did show a intrauterine gestational sac. Vital Signs Vital signs: Vital Signs Temperature 98.5 F 06/29/23 07:38 Pulse Rate 90 06/29/23 07:38 Respiratory Rate 16 06/29/23 07:38 Blood Pressure 125/76 06/29/23 07:38 Pulse Oximetry 100 06/29/23 07:38 Temperature 98.5 F 06/29/23 07:38 Pulse Rate 90 06/29/23 07:38 Respiratory Rate 16 06/29/23 07:38 Blood Pressure 125/76 06/29/23 07:38 Pulse Oximetry 100 06/29/23 07:38 MDM - Female Genitourinary MDM Narrative Medical decision making narrative: 33-year-old female present to the emergency department for evaluation of vaginal spotting and abdominal cramping. Patient declined any labs including a repeat beta-hCG patient states she only wants the ultrasound. Ultrasound showed single intrauterine gestation with estimated gestational age of 6 weeks and 1 day. Differential Diagnosis Differential diagnosis: Likely urinary tract infection, trichomoniasis, cervicitis, ovarian cyst, vaginitis, ruptured ovarian cyst, cyst of Bartholin's gland, cystitis and dysmenorrhea Im
--- NOTE | 2023-06-29 09:03 | PC.NURSE ---
Pt declining lab work, including HCG levels, at this time. aware.
--- NOTE | 2023-06-29 09:08 | PC.NURSE ---
Pt refusing IV and IVF at this time. aware.
== END 2023-06-29 09:38 | disposition home or self-care (01) ==
PROVIDERS: Emergency Provider Emergency Medicine
DX: O20.9 Hemorrhage in early pregnancy, unspecified (principal); O99.331 Smoking (tobacco) complicating pregnancy, first trimester; F17.210 Nicotine dependence, cigarettes, uncomplicated; Z3A.01 Less than 8 weeks gestation of pregnancy
CPT/HCPCS: 76801; 76817; 99284

== ENCOUNTER 2023-08-23 08:51 | Emergency (ER) | payer OTHER, SELFPAY ==
--- NOTE | 2023-08-23 08:54 | ED.FEMALEGU ---
HPI - Female Genitourinary General Chief complaint: Urogenital-Female Stated complaint: rectal pain,vaginal spotting/DNC 07/11/2023 Time Seen by Provider: 08/23/23 09:50 Source: patient and RN notes reviewed Mode of arrival: ambulatory Limitations: no limitations History of Present Illness HPI Narrative: 33-year-old female presents with concern of for rectal pain and dysuria. She reports rectal pain started this morning, dysuria started yesterday. She also reports she started spotting today, she was slightly concerned because she had a D&C approximately 6 weeks ago. She reports she had a normal amount of bleeding after the D and C and then was not bleeding, she got a Depo-Provera shot last week. She denies fever, body aches, chills, sweats MD elicited complaint: dysuria Related Data Home Medications Medication Instructions Recorded Confirmed medroxyprogesterone 150 mg/mL 150 mg IM [id number] 08/23/23 08/23/23 intramuscular suspension Allergies Allergy/AdvReac Type Severity Reaction Status Date / Time cefaclor Allergy Mild Hives Verified 08/23/23 09:32 Review of Systems Review of Systems: CONSTITUTIONAL: Denies malaise, chills, sweats, or fever. CARDIOVASCULAR: Denies chest pain, palpitations, or edema. RESPIRATORY: Denies cough or dyspnea. GASTROINTESTINAL: Denies abdominal pain, nausea, vomiting, diarrhea. Reports rectal pain GENITOURINARY: Reports dysuria, frequency, urgency, suprapubic pressure. Denies flank pain or hematuria. Reports vaginal spotting SKIN: Denies rash or itching. MUSCULOSKELETAL: Denies back pain or myalgia. All systems reviewed & are unremarkable except as noted in HPI and below PMFSH Past Medical History Medical History (Updated 08/23/23 @ 10:12 by Seema Ibarra NP) Anxiety Arm fracture At risk for dental problems COVID-19 04/2021 Ectopic Migraines Surgical History Surgical History No history of previous surgery Family History Family History Mother Heart disease Grandparent Diabetes mellitus Social History Social History Smoking packs per day: 0.5 Smoking cigarettes per day: 10.0 Years smoked: 14 Smoking pack-years: 7.00 Smoking status: Current every day smoker Tobacco type: cigarettes Second hand tobacco smoke exposure: No Alcohol intake: never Substance use: never Living arrangements: with family Occupation/Education: occupation Gender identity (if verbalized by the patient): Female Comments At time of signature, agree with nursing past medical, surgical, social and family history. There is no relevant family history pertinent to the presenting complaint Exam Narrative: GENERAL: Well-appearing, well-nourished, and in no acute distress. HEAD: Normocephalic. EYES: PERRLA, conjunctivae clear. NECK: Supple. No lymphadenopathy CHEST: Clear to auscultation. No respiratory distress. HEART: Regular rate and rhythm. ABDOMEN: Soft, nontender upon palpation, nondistended, normal active bowel sounds, no palpable or pulsatile masses, no guarding. No CVA tenderness SKIN: Warm, dry, no rash. NEURO: Alert and oriented x3. PSYCH: Normal mood and affect Course Course Emergency Course: I discussed exam findings with patient, no evidence of external hemorrhoid, not able to palpate an internal hemorrhoid, however pain is consistent with hemorrhoidal pain, possible internal hemorrhoid that I cannot palpate. Patient's urinalysis is normal, no indication of urinary tract infection. Patient's bleeding is felt to be more likely related to menses and or Depo-Provera shot then it is her D&C 6 weeks ago given that she had many weeks without bleeding. However patient was advised to follow-up with her hospital admitting clerk for further evaluation of the symptoms and was gi
[2023-08-23 09:05] VITALS: BP 129/77; PULSE 77; RESP 16; TEMP 36.9; O2SAT 98
== END 2023-08-23 10:19 | disposition home or self-care (01) ==
PROVIDERS: Emergency Provider Nurse Practitioner
DX: K62.89 Other specified diseases of anus and rectum (principal); R30.0 Dysuria; F17.210 Nicotine dependence, cigarettes, uncomplicated; Z86.16 Personal history of COVID-19
CPT/HCPCS: 81003; 99212; G0463

== ENCOUNTER 2023-09-28 13:47 | Emergency (ER) | payer OTHER, SELFPAY ==
--- NOTE | 2023-09-28 13:49 | ED.URI ---
HPI - URI/Sore Throat General Chief Complaint: Upper Respiratory Infection Stated Complaint: throwing up,fever,throat hurts Time Seen by Provider: 09/28/23 13:48 Source: patient Mode of arrival: ambulatory Limitations: no limitations History of Present Illness HPI Narrative: Patient is a 33-year-old female who presents with 2 days of nausea, vomiting, diarrhea, fever, headache, runny nose and sore throat. Has not taken anything for symptoms. Had to leave work today. Is concerned she is going to get her children sick. Denies known sick contacts. Related Data Home Medications Medication Instructions Recorded Confirmed medroxyprogesterone 150 mg/mL 150 mg IM [id number] 08/23/23 09/28/23 intramuscular suspension Allergies Allergy/AdvReac Type Severity Reaction Status Date / Time cefaclor Allergy Mild Hives Verified 09/28/23 14:05 Review of Systems Review of Systems: All systems reviewed & are unremarkable except as noted in HPI and below Constitutional: Constitutional: Denies body ache(s), Reports chills, Denies fatigue, Reports fever(s), Reports headache(s), Denies malaise and Denies weakness Eyes: Eyes: Denies blurry vision, Denies itchy eyes and Denies loss of vision ENT: Denies otalgia, Denies headache(s), Reports nasal congestion, Denies sinus pain and Reports sore throat Cardiovascular: Cardiovascular: Denies chest pain, Denies irregular heart rhythm and Denies dyspnea Respiratory: Respiratory: Denies cough and Denies dyspnea Gastrointestinal: Gastrointestinal: Denies abdominal pain, Reports diarrhea, Reports nausea and Reports vomiting Musculoskeletal: Musculoskeletal: Denies back pain, Denies myalgias and Denies arthralgias Integumentary/Breasts: Skin/Breast: Denies pruritus and Denies rash Neurologic: Reports headache(s), Denies loss of vision and Denies weakness Psychiatric: Psychiatric: Reports no additional psychiatric complaints Endocrine: Endocrine: Denies fatigue Allergic/Immunologic: Allergic/Immunologic: Denies itchy eyes PMFSH Past Medical History Medical History Anxiety Arm fracture At risk for dental problems COVID-19 04/2021 Ectopic Migraines Surgical History Surgical History No history of previous surgery Family History Family History Mother Heart disease Grandparent Diabetes mellitus Social History Social History Smoking packs per day: 0.5 Smoking cigarettes per day: 10.0 Years smoked: 14 Smoking pack-years: 7.00 Smoking status: Current every day smoker Tobacco type: cigarettes Second hand tobacco smoke exposure: No Alcohol intake: never Substance use: never Living arrangements: with family Occupation/Education: occupation Gender identity (if verbalized by the patient): Female Comments At time of signature, agree with nursing past medical, surgical, social and family history. There is no relevant family history pertinent to the presenting complaint. Exam Const: General: cooperative, healthy appearing, comfortable, no acute distress and well nourished Nutritional Appearance: well nourished Orientation/consciousness: patient oriented x3 Limitations: no limitations HENMT: Head: normal to inspection, normocephalic and atraumatic Ears: hearing grossly normal bilaterally, external ears normal, TM's normal bilaterally, EAC's normal and no periauricular adenopathy Face/Nose/Sinus: Normal external nose present, Abnormal mucous membranes and turbinates present erythematous bilateral and diffuse, normal facial exam, sinuses nontender and face symmetric Face and sinus: normal facial exam, sinuses nontender and face symmetric Mouth: Yes Normal oral and palatal mucosa present, Yes lip normal, Yes tongue normal, Yes Normal
[2023-09-28 13:56] VITALS: BP 127/86; PULSE 89; RESP 16; TEMP 37.2; O2SAT 99
== END 2023-09-28 14:36 | disposition home or self-care (01) ==
PROVIDERS: Emergency Provider Nurse Practitioner Family
DX: K52.9 Noninfective gastroenteritis and colitis, unspecified (principal); Z20.822 Contact with and (suspected) exposure to COVID-19; F17.210 Nicotine dependence, cigarettes, uncomplicated; Z86.16 Personal history of COVID-19
CPT/HCPCS: 87081; 87426; 87804; 87880; 99213; G0463

== ENCOUNTER 2023-10-03 08:53 | Emergency (ER) | payer OTHER, SELFPAY ==
[2023-10-03 09:01] VITALS: BP 123/81; PULSE 87; RESP 16; TEMP 37.5; O2SAT 99
--- NOTE | 2023-10-03 09:33 | ED.NAVMDI ---
HPI - Nausea/Vomiting/Diarrhea General Chief complaint: Nausea/Vomiting/Diarrhea Stated complaint: diarrhea,sinus issue Time Seen by Provider: 10/03/23 09:15 Source: patient Mode of arrival: ambulatory Limitations: no limitations History of Present Illness HPI Narrative: Ashli is a 33-year-old female patient presenting to the clinic today with complaints of diarrhea x5 days and sinus pressure this been going on for 2 days. She reports she does have nasal congestion. No fever or chills. Denies any abdominal pain or urinary symptoms. She was seen here few days for a similar symptoms with the diarrhea. Was having nausea and vomiting at the time she was seen last but that has resolved. States that she is having multiple diarrhea stools per day. Has had 3 stools this morning. Has been taking Pepto for her symptoms. Denies any known blood in her stool. Is concerned that she may have food poisoning. Related Data Home Medications Medication Instructions Recorded Confirmed medroxyprogesterone 150 mg/mL 150 mg IM [id number] 08/23/23 09/28/23 intramuscular suspension Allergies Allergy/AdvReac Type Severity Reaction Status Date / Time cefaclor Allergy Mild Hives Verified 09/28/23 14:05 Review of Systems Review of Systems: Pertinent positives per HPI. Patient denies any fever, chills, rash, headache, visual changes, dizziness, cough, sore throat, shortness of breath, chest pain, palpitations, nausea, vomiting,constipation, abdominal pain, or any urinary issues. [facility] Past Medical History Medical History Anxiety Arm fracture At risk for dental problems COVID-19 04/2021 Ectopic Migraines Surgical History Surgical History No history of previous surgery Family History Family History Mother Heart disease Grandparent Diabetes mellitus Social History Social History Smoking packs per day: 0.5 Smoking cigarettes per day: 10.0 Years smoked: 14 Smoking pack-years: 7.00 Smoking status: Current every day smoker Tobacco type: cigarettes Second hand tobacco smoke exposure: No Alcohol intake: never Substance use: never Living arrangements: with family Occupation/Education: occupation Gender identity (if verbalized by the patient): Female Comments At the time of my signature, I reviewed and agree with the nursing past medical, surgical, social, and family history. There is no relevant family history pertinent to the patient complaint. Exam Narrative: General: Well-developed, well nourished, in no apparent distress Head: Normocephalic, atraumatic Eyes: Pupils equally round and reactive to light bilaterally, EOM intact, sclera and conjunctive clear, no discharge, lids normal Ears: TMs intact and clear, ear canals clear, no drainage, grossly hearing normal. Nose: Nares patent, clear nasal discharge, severe inflammation to the right nare, mild inflammation to the left nare, tender to palpation over the maxillary and frontal sinus Mouth: Oropharynx without lesions or masses, good dentition, MM dry. Neck: Supple, trachea midline, no enlargement of anterior or posterior cervical nodes, no thyroid masses or goiter palpable. Cardio: Regular rate and rhythm, s1 and s2 normal, no murmur appreciated. Resp: Clear to auscultation bilaterally anteriorly and posteriorly, no rhonchi, rales, wheezing or rubs Abdomen: Soft, pliable, bowel sounds present in all quadrants, non-tender to palpation, no organomegly, no CVAT tenderness. Course Course Emergency Course: Portions of this record may have been created with voice recognition software. Level of Care: Express Care Visit Vital Signs Vital signs: Vital Signs Temperature 37.5 C 10/03/23 09:01 Pulse Rat
== END 2023-10-03 09:40 | disposition home or self-care (01) ==
PROVIDERS: Emergency Provider Nurse Practitioner Family
DX: R19.7 Diarrhea, unspecified (principal); J06.9 Acute upper respiratory infection, unspecified; F17.210 Nicotine dependence, cigarettes, uncomplicated; Z86.16 Personal history of COVID-19
CPT/HCPCS: 99211; G0463

== ENCOUNTER 2023-11-05 09:51 | Emergency (ER) | payer OTHER, SELFPAY ==
[2023-11-05 09:57] VITALS: BP 127/81; PULSE 75; RESP 16; TEMP 36.7; O2SAT 100
--- NOTE | 2023-11-05 10:07 | ED.FEMALEGU ---
HPI - Female Genitourinary General Chief complaint: Urogenital-Female Stated complaint: urinary issue,lower back pain Time Seen by Provider: 11/05/23 10:08 Source: patient Mode of arrival: ambulatory Limitations: no limitations History of Present Illness HPI Narrative: 33-year-old female presents with complaint of low back pain for 1 week. Reports dysuria, urgency, frequency for 3 days. Nausea today. Denies fever. Patient concern for urinary tract infection. Denies . All systems reviewed and negative except as noted above. Related Data Home Medications Medication Instructions Recorded Confirmed medroxyprogesterone 150 mg/mL 150 mg IM [id number] 08/23/23 11/05/23 intramuscular suspension Allergies Allergy/AdvReac Type Severity Reaction Status Date / Time cefaclor Allergy Mild Hives Verified 11/05/23 10:13 Review of Systems Review of Systems: CONSTITUTIONAL: Denies fever, chills, or sweats. EYES: Denies visual changes, redness, or discharge. ENT: Denies rhinorrhea, congestion, sore throat, or otalgia. CARDIOVASCULAR: Denies chest pain, palpitations, or edema. RESPIRATORY: Denies cough or dyspnea. GASTROINTESTINAL: Denies abdominal pain . Reports nausea. Denies vomiting, or diarrhea. GENITOURINARY: reports dysuria, frequency, urgency. Denies hematuria. SKIN: Denies rash or itching. MUSCULOSKELETAL: Denies back pain, joint pain, or myalgia. NEUROLOGIC: Denies headache, numbness, or weakness. PSYCHIATRIC: Denies anxiety or depression. All other systems reviewed are negative, except as documented in HPI. [facility] Past Medical History Medical History Anxiety Arm fracture At risk for dental problems COVID-19 04/2021 Ectopic Migraines Surgical History Surgical History No history of previous surgery Family History Family History Mother Heart disease Grandparent Diabetes mellitus Social History Social History Smoking packs per day: 0.5 Smoking cigarettes per day: 10.0 Years smoked: 14 Smoking pack-years: 7.00 Smoking status: Current every day smoker Tobacco type: cigarettes Second hand tobacco smoke exposure: No Alcohol intake: never Substance use: never Living arrangements: with family Occupation/Education: occupation Gender identity (if verbalized by the patient): Female Comments At time of signature, agree with nursing past medical, surgical, social and family history. There is no relevant family history pertinent to the presenting complaint. Exam Narrative: GENERAL: This is a well-nourished, well-developed patient, in no apparent distress. HEAD: normocephalic, atraumatic. EYES: PERRL. Sclera clear/white. Vision is grossly intact. EARS: External ears normal NOSE: External nose normal NECK: Neck supple, non-tender without lymphadenopathy, masses or thyromegaly. CARDIOVASCULAR: Regular rate and rhythm without murmurs, gallops, or rubs. RESPIRATORY: Clear to auscultation. Breath sounds equal bilaterally. No wheezes, rales, or rhonchi. SKIN: warm, Dry, intact with no suspicious lesions or rash, good texture and turgor. NEURO: awake, alert, and oriented to person, place and time. There were no obvious focal neurologic abnormalities. EXTREMITIES: No joint tenderness, effusion, or edema noted. BACK: no CVA tenderness Course Course Level of Care: Express Care Visit Vital Signs Vital signs: Vital Signs Temperature 36.7 C 11/05/23 09:57 Pulse Rate 75 11/05/23 09:57 Respiratory Rate 16 11/05/23 09:57 Blood Pressure 127/81 11/05/23 09:57 Pulse Oximetry 100 11/05/23 09:57 Oxygen Delivery Room Air 11/05/23 09:57 Temperature 36.7 C 11/05/23 09:57 Pulse Rate 75 11/05/23 09:57 Respira
[2023-11-05 10:09] LABS: EDUAAPPEAR Clear; EDUABILI Negative; EDUABLOOD 1+; EDUACOLOR1 Yellow; EDUAGLUCOSE Negative; EDUAKETONE Negative; EDUALEUKO Negative; EDUANITRATE Negative; EDUAPH 5.5; EDUAPROTEIN Negative; EDUASPGRAVITY 1.025; EDUAUROBILI 0.2
== END 2023-11-05 10:23 | disposition home or self-care (01) ==
PROVIDERS: Emergency Provider Nurse Practitioner Family
DX: N39.0 Urinary tract infection, site not specified (principal); F17.210 Nicotine dependence, cigarettes, uncomplicated; Z86.16 Personal history of COVID-19
CPT/HCPCS: 81003; 87086; 87088; 99213; G0463

== ENCOUNTER 2023-11-07 15:48 | Emergency (ER) | payer OTHER, SELFPAY ==
[2023-11-07 16:05] VITALS: BP 129/82; PULSE 100; RESP 18; TEMP 37.2; O2SAT 99
--- NOTE | 2023-11-07 16:28 | ED.URI ---
HPI - URI/Sore Throat General Chief Complaint: Upper Respiratory Infection Stated Complaint: throat hurts,chest/back hurts,nose bleeds Time Seen by Provider: 11/07/23 16:18 Source: patient and RN notes reviewed Mode of arrival: ambulatory Limitations: no limitations History of Present Illness HPI Narrative: Patient presents today with complaints of 2 day history of sore throat, headache, body aches, subjective fever, sweats, chills, dry cough, rhinorrhea. She has been taking zyrtec, tylenol, and motrin with mild relief. She went to a concert prior to onset of symptoms. Denies shortness of breath, chest pain. Related Data Home Medications Medication Instructions Recorded Confirmed medroxyprogesterone 150 mg/mL 150 mg IM [id number] 08/23/23 11/05/23 intramuscular suspension Allergies Allergy/AdvReac Type Severity Reaction Status Date / Time cefaclor Allergy Mild Hives Verified 11/05/23 10:13 Review of Systems Review of Systems: CONSTITUTIONAL: + body aches, subjective fever, chills, sweats EYES: Denies visual changes, redness, or discharge. ENT: Denies congestion, or otalgia.+ rhinorrhea, sore throat CARDIOVASCULAR: Denies chest pain, palpitations, or edema. RESPIRATORY: Denies dyspnea.+ cough GASTROINTESTINAL: Denies abdominal pain, nausea, vomiting, or diarrhea. GENITOURINARY: Denies dysuria or hematuria. SKIN: Denies rash, itching, or wounds. MUSCULOSKELETAL: Denies back pain, joint pain, or myalgia. NEUROLOGIC: Denies numbness, tingling, or weakness.+ headache PSYCH: Denies depression or anxiety. [facility] Past Medical History Medical History Anxiety Arm fracture At risk for dental problems COVID-19 04/2021 Ectopic Migraines Surgical History Surgical History No history of previous surgery Family History Family History Mother Heart disease Grandparent Diabetes mellitus Social History Social History Smoking packs per day: 0.5 Smoking cigarettes per day: 10.0 Years smoked: 14 Smoking pack-years: 7.00 Smoking status: Current every day smoker Tobacco type: cigarettes Second hand tobacco smoke exposure: No Alcohol intake: never Substance use: never Living arrangements: with family Occupation/Education: occupation Gender identity (if verbalized by the patient): Female Comments At time of signature, I have reviewed and agree with nursing past medical, surgical, social and family history unless otherwise noted. Please see nursing chart for further information. There is no relevant family history pertinent to the presenting complaint Exam Narrative: GENERAL: Well-appearing, well-nourished, and in no acute distress. HEAD: Normocephalic, atraumatic. EYES: EOMI. No redness or drainage. Conjunctivae normal. ENT: Mucous membranes pink and moist. Nares clear. + rhinorrhea. TMs normal bilaterally. Throat erythematous posteriorly without edema or exudate. Uvula midline. NECK: Normal AROM. Supple. No lymphadenopathy. CHEST: No respiratory distress. Clear to auscultation. HEART: Regular rate and rhythm. No murmur appreciated. EXTREMITIES: Normal range of motion. No edema. SKIN: Warm, dry, no rash. Capillary refill normal. Normal skin turgor. NEURO: No focal deficits. Alert and oriented x3. Gait steady. PSYCH: Normal affect. No signs of depression or anxiety. Course Course Level of Care: Express Care Visit Vital Signs Vital signs: Vital Signs Temperature 98.9 F 11/07/23 16:05 Pulse Rate 100 11/07/23 16:05 Respiratory Rate 18 11/07/23 16:05 Blood Pressure 129/82 11/07/23 16:05 Pulse Oximetry 99 11/07/23 16:05 Oxygen Delivery Room Air 11/07/23 16:05 Temperature 98.9 F 11/06
[2023-11-07 16:45] LABS: EDINFLUASCREEN Negative; EDINFLUBSCREEN Negative
== END 2023-11-07 16:34 | disposition home or self-care (01) ==
PROVIDERS: Emergency Provider Nurse Practitioner
DX: U07.1 COVID-19 (principal); F17.210 Nicotine dependence, cigarettes, uncomplicated
CPT/HCPCS: 87426; 87804; 99213; G0463

== ENCOUNTER 2023-11-13 18:09 | Emergency (ER) | payer OTHER, SELFPAY ==
--- NOTE | ~2023-11-13 | XR_ITS ---
EXAMINATION: XR chest 2V Exam Date/Time: 11/13/2023 18:45 CDT HISTORY: post covid cough pt vapes Comparison: 10/05/2021. RESULT: Lines, tubes, and devices: None. Lungs and pleura: Clear. Cardiomediastinal silhouette: Stable. Other: No acute osseous or upper abdominal finding. IMPRESSION: No acute cardiopulmonary process. Reviewed, dictated and finalized at location K.
[2023-11-13 18:16] VITALS: BP 147/86; PULSE 79; RESP 16; TEMP 37; O2SAT 100
--- NOTE | 2023-11-13 18:19 | ED.GENADULT ---
HPI - General Adult General Chief complaint: Upper Respiratory Infection Stated complaint: Cough/Rash Time Seen by Provider: 11/13/23 18:23 Source: patient, RN notes reviewed and old records reviewed Mode of arrival: ambulatory Limitations: no limitations History of Present Illness HPI narrative: Patient presents with complaints of productive cough for the past couple of days. She reports that she tested positive for COVID-19 approximately 1 week ago. Other symptoms have subsided, but she does complain that she still has a cough and that the cough is becoming worse. She is also concerned about a rash to the bilateral arms. She reports that for the past several years, any time she is out in the sun she gets a raised itchy rash to both arms. She states she does have a dermatology appointment, but in the past has gotten good relief from steroids. She is requesting a round of steroids to help with this rash. She denies any other concerns or complaints at this time. No fever, chills, sweats Related Data Allergies Allergy/AdvReac Type Severity Reaction Status Date / Time cefaclor Allergy Mild Hives Verified 11/13/23 18:12 Review of Systems Review of Systems: All systems reviewed & are unremarkable except as noted in HPI and below Constitutional: Constitutional: Reports no additional constitutional complaints ENT: Reports system reviewed and no additional complaints, except as documented Cardiovascular: Cardiovascular: Reports no additional cardiovascular complaints Respiratory: Respiratory: Reports no additional respiratory complaints Gastrointestinal: Gastrointestinal: Reports no additional gastrointestinal complaints Integumentary/Breasts: Skin/Breast: Reports as per HPI and Reports rash PMFSH Past Medical History Medical History Anxiety Arm fracture At risk for dental problems COVID-19 04/2021 Ectopic Migraines Surgical History Surgical History No history of previous surgery Family History Family History Mother Heart disease Grandparent Diabetes mellitus Social History Social History Smoking packs per day: 0.5 Smoking cigarettes per day: 10.0 Years smoked: 14 Smoking pack-years: 7.00 Smoking status: Current every day smoker Tobacco type: cigarettes Second hand tobacco smoke exposure: No Alcohol intake: never Substance use: never Living arrangements: with family Occupation/Education: occupation Gender identity (if verbalized by the patient): Female Comments At the time of my signature, I reviewed and agree with the nursing past medical, surgical, social, and family history. There is no relevant family history pertinent to the patient complaint. Exam Const: General: cooperative, no acute distress, alert and awake Orientation/consciousness: oriented to person, oriented to place and oriented to time HENMT: Head: normal to inspection Ears: TM's normal bilaterally Neck: Lymphatic: lymphadenopathy not noted Resp: Effort & Inspection: normal respiratory effort and able to speak in complete sentences Auscultation: clear to auscultation bilaterally, no crackles, no rales, no rhonchi and no wheezes Cardio: Palpation: normal PMI Rate: regular rate Rhythm: regular rhythm Heart sounds: S1 normal heart sound present and S2 normal heart sound present Skin: Other: Sign raised red rash to bilateral arms, no sign of secondary infection Neuro: General: oriented to person, oriented to place and oriented to time Cranial nerves: Yes CN's II-XII intact bilaterally Psych: Appearance: grossly normal Thought process: Normal thought process present Insight: Good insight present (Psych) Judgement: Good judgement present (Psych) Course Course Level of
== END 2023-11-13 19:07 | disposition home or self-care (01) ==
PROVIDERS: Emergency Provider Nurse Practitioner Family
DX: B34.9 Viral infection, unspecified (principal); L30.9 Dermatitis, unspecified; F17.210 Nicotine dependence, cigarettes, uncomplicated; Z86.16 Personal history of COVID-19
CPT/HCPCS: 71046; 99213; G0463

== ENCOUNTER 2024-01-16 10:47 | Emergency (ER) | payer OTHER, SELFPAY ==
[2024-01-16 10:55] VITALS: BP 123/69; PULSE 70; RESP 18; TEMP 37.3; O2SAT 100
[2024-01-16 11:38] LABS: BEDSIDEPREGUCG Negative (Negative)
[2024-01-16 11:38] LABS: EDUAAPPEAR Cloudy; EDUABILI 1+ (Negative); EDUABLOOD Negative (Negative); EDUACOLOR1 Yellow; EDUAGLUCOSE Negative (Negative); EDUAKETONE Negative (Negative); EDUALEUKO Negative (Negative); EDUANITRATE Negative (Negative); EDUAPH 5.5; EDUAPROTEIN 1+ (Negative); EDUAUROBILI 0.2
--- NOTE | 2024-01-16 12:03 | ED.GENADULT ---
HPI - General Adult General Chief complaint: Urogenital-Female Stated complaint: UTI Source: patient Mode of arrival: ambulatory Limitations: no limitations History of Present Illness HPI narrative: Patient presents for evaluation of urinary symptoms for last few days. Symptoms include urinary frequency, urgency, dribbling, dysuria and some suprapubic pain. No fever, chills, nausea, vomiting, low back pain, vaginal bleeding or discharge. She is sexually active with her . LMP about six months ago. She received Depo-Provera in June of this year but has not been on any control since that time. She believes she has a urinary tract infection. Related Data Allergies Allergy/AdvReac Type Severity Reaction Status Date / Time cefaclor Allergy Mild Hives Verified 11/13/23 18:12 Review of Systems Review of Systems: CONSTITUTIONAL: Denies fever, chills, or sweats. EYES: Denies visual changes, redness, or discharge. ENT: Denies rhinorrhea, congestion, sore throat, or otalgia. CARDIOVASCULAR: Denies chest pain, palpitations, or edema. RESPIRATORY: Denies cough or dyspnea. GASTROINTESTINAL: Denies abdominal pain, nausea, vomiting, or diarrhea. GENITOURINARY: Reports urinary frequency, urgency, dribbling, dysuria, and suprapubic discomfort. denies hematuria, vaginal bleeding or discharge SKIN: Denies rash or itching. MUSCULOSKELETAL: Denies back pain, joint pain, or myalgia. NEUROLOGIC: Denies headache, numbness, dizziness, or weakness. PSYCHIATRIC: Denies anxiety or depression. [facility] Past Medical History Medical History Anxiety Arm fracture At risk for dental problems COVID-19 04/2021 Ectopic Migraines Surgical History Surgical History No history of previous surgery Family History Family History Mother Heart disease Grandparent Diabetes mellitus Social History Social History Smoking packs per day: 0.5 Smoking cigarettes per day: 10.0 Years smoked: 14 Smoking pack-years: 7.00 Smoking status: Current every day smoker Tobacco type: cigarettes Second hand tobacco smoke exposure: No Alcohol intake: never Substance use: never Living arrangements: with family Occupation/Education: occupation Gender identity (if verbalized by the patient): Female Exam Narrative: GENERAL: Well-appearing, well-nourished, and in no acute distress. HEAD: Normocephalic, atraumatic. EYES: PERRLA and EOMI. ENT: Nares clear, no rhinorrhea or epistaxis. Mucous membranes moist. Oropharynx without tonsillar hypertrophy exudate or other lesions. Bilateral TMs pearly owens nonbulging NECK: Supple. No adenopathy or masses. No carotid bruits or JVD CHEST: Clear to auscultation. No respiratory distress. No wheezes rales or rhonchi HEART: Regular rate and rhythm. No murmur heard. Normal peripheral pulses. ABDOMEN: Soft, nontender, nondistended, normal active bowel sounds. EXTREMITIES: Normal range of motion. No edema. SKIN: Warm, dry, no rash. NEURO: No focal deficits. Alert and oriented x3. PSYCH: Normal mood and affect. Course Course Emergency Course: this is a 34-year-old female who presented for evaluation of urinary symptoms. No evidence of infection in urine dipstick today. negative. I did offer to perform a pelvic exam and send specimens to check for BV and STI's. She declined. She would rather follow up with her OBGYN later this week. She was advised to return for persistent symptoms or go to the emergency department for worsening symptoms. Patient in agreement with plan of care. Level of Care: Express Care Visit Vital Signs Vital signs: Vital Signs Temperature 37.3 C 01/16/24 10:55 Pulse Rate 70 01/16/24 10:55
== END 2024-01-16 12:05 | disposition home or self-care (01) ==
PROVIDERS: Emergency Provider Nurse Practitioner
DX: R35.0 Frequency of micturition (principal); F17.210 Nicotine dependence, cigarettes, uncomplicated; Z86.16 Personal history of COVID-19
CPT/HCPCS: 81003; 81025; 87086; 99213; G0463

== ENCOUNTER 2024-03-12 08:46 | Emergency (ER) | payer OTHER, SELFPAY ==
[2024-03-12 08:55] VITALS: BP 119/78; PULSE 84; RESP 19; TEMP 37.4; O2SAT 100
--- NOTE | 2024-03-12 08:59 | ED.SKABFB ---
HPI - Skin/Abscess/Foreign Bdy General Chief complaint: Skin/Abscess/Foreign Body Stated complaint: Rash Time Seen by Provider: 03/12/24 09:00 Source: patient Mode of arrival: ambulatory Limitations: no limitations History of Present Illness HPI narrative: Ashli is a 34-year-old female patient presenting to the clinic today with complaints of a rash that developed over the past few days. Rash is itchy and she notices that it is more itchy at nighttime and she has been scratching it. States she gets this every year. Denies any fever, chills, or body aches. No new changes in soaps, lotions, detergents, shampoos, foods, or medications. Related Data Allergies Allergy/AdvReac Type Severity Reaction Status Date / Time cefaclor Allergy Mild Hives Verified 11/13/23 18:12 Review of Systems Review of Systems: Pertinent positives per HPI. Patient denies any fever, chills, headache, visual changes, dizziness, cough, runny nose, sore throat, shortness of breath, chest pain, palpitations, nausea, vomiting, diarrhea, constipation, abdominal pain, or any urinary issues. [facility] Past Medical History Medical History Anxiety Arm fracture At risk for dental problems COVID-19 04/2021 Ectopic Migraines Surgical History Surgical History No history of previous surgery Family History Family History Mother Heart disease Grandparent Diabetes mellitus Social History Social History Smoking packs per day: 0.5 Smoking cigarettes per day: 10.0 Years smoked: 14 Smoking pack-years: 7.00 Smoking status: Current every day smoker Tobacco type: cigarettes Second hand tobacco smoke exposure: No Alcohol intake: never Substance use: never Living arrangements: with family Occupation/Education: occupation Gender identity (if verbalized by the patient): Female Comments At the time of my signature, I reviewed and agree with the nursing past medical, surgical, social, and family history. There is no relevant family history pertinent to the patient complaint. Exam Narrative: General: Well-developed, well nourished, in no apparent distress Head: Normocephalic, atraumatic. Cardio: Regular rate and rhythm, s1 and s2 normal, no murmur appreciated. Resp: Clear to auscultation bilaterally, no rhonchi, rales, wheezing or rubs. Integumentary: [place], warm, and dry, red itchy raised rash to bilateral arms and to the right chin/cheek Course Course Emergency Course: Portions of this record may have been created with voice recognition software. Level of Care: Express Care Visit Vital Signs Vital signs: Vital Signs Temperature 37.4 C 03/12/24 08:55 Pulse Rate 84 03/12/24 08:55 Respiratory Rate 19 03/12/24 08:55 Blood Pressure 119/78 03/12/24 08:55 Pulse Oximetry 100 03/12/24 08:55 Oxygen Delivery Room Air 03/12/24 08:55 Temperature 37.4 C 03/12/24 08:55 Pulse Rate 84 03/12/24 08:55 Respiratory Rate 19 03/12/24 08:55 Blood Pressure 119/78 03/12/24 08:55 Pulse Oximetry 100 03/12/24 08:55 Oxygen Delivery Room Air 03/12/24 08:55 Vital signs reviewed MDM - Skin/Abscess/Foreign Bdy MDM Narrative Medical decision making narrative: At the time of visit patient is resting comfortably on the exam table. Patient appears to be nontoxic. Medications: Dexamethasone 10 mg IM Plan: I suspect patient has dermatitis. Prescription for prednisone and triamcinolone cream was sent to the pharmacy. Supportive measures were discussed with the patient and they voiced understanding discharge instructions and agrees to treatment plan. Return precautions reviewed Differential Diagnosis Differential diagnosis: Likely abscess of skin or subcutaneous tissue, viral exanthem, dermatophytosis, urticaria, herpes zoster, allergic reaction to drug, cellulitis, eczema, insect bites, impetigo and contact dermatitis Discharge Plan Discharge Clinical Impression: Dermatitis Patient Disposition: Home, Self-Care Condition: Stable Instructions: Antibiotic Form, Dermatitis (ED) Additional Instructions: Dexamethasone 10 mg IM given in the clinic today Apply triamcinolone cream as directed Take prednisone as directed-start on 03/13/2024 Avoid hot showers May apply calamine lotion to rash Avoid scratching and this causes rash to spread May take benadryl 25-50mg every 6 hours as needed for itching. Follow up with your PCP in 3-5 days if symptoms persist or sooner if they worsen Go to the Emergency Room if symptoms worsen- fever, rash spreading with treatment, shortness of breath, tongue swelling, drooling, or chest pain Prescriptions: New prednisone 20 mg tablet 40 mg PO DAILY 5 Days Qty: 10 0RF triamcinolone acetonide 0.1 % cream 1 applic topical BID 7 Days Qty: 30 0RF Follow-up/Referrals: [facility]care [Primary Care Provider] - Time of Disposition: 09:04 Quality NIHSS Nursing Documentation ED NIHSS nursing documentation: reviewed/agree
[2024-03-12] MEDS: dexAMETHasone SOD PHOS INJ 10 MG/ML 1 ML VIAL IM (09:14)
== END 2024-03-12 09:25 | disposition home or self-care (01) ==
PROVIDERS: Emergency Provider Nurse Practitioner Family
DX: L30.9 Dermatitis, unspecified (principal); F17.210 Nicotine dependence, cigarettes, uncomplicated; Z86.16 Personal history of COVID-19
CPT/HCPCS: 96372; 99213; G0463; J1100

== ENCOUNTER 2024-03-16 10:09 | Emergency (ER) | payer OTHER, SELFPAY ==
[2024-03-16 10:31] VITALS: BP 130/82; PULSE 57; RESP 16; TEMP 36.3; O2SAT 99
--- NOTE | 2024-03-16 11:14 | ED.URI ---
HPI - URI/Sore Throat General Chief Complaint: Upper Respiratory Infection Stated Complaint: sore throat Time Seen by Provider: 03/16/24 11:15 Source: patient, RN notes reviewed and old records reviewed Mode of arrival: ambulatory Limitations: no limitations History of Present Illness HPI Narrative: Patient presents with complaints of hoarse voice and sore throat for 3 days. She reports that she has been taking Tylenol and ibuprofen intermittently for her symptoms without relief. Of note, patient was seen here less than 1 week ago, given a prescription for prednisone. She does admit that she never took this prescription because she does not like how the medication makes her feel. She denies any runny nose or cough. She denies any fever, chills, sweats. She denies any injury or trauma. Voices no other concerns or complaints at this time. Related Data Allergies Allergy/AdvReac Type Severity Reaction Status Date / Time cefaclor Allergy Mild Hives Verified 03/16/24 10:52 Review of Systems Review of Systems: All systems reviewed & are unremarkable except as noted in HPI and below Constitutional: Constitutional: Reports no additional constitutional complaints ENT: Reports system reviewed and no additional complaints, except as documented, Reports change in voice and Reports sore throat Cardiovascular: Cardiovascular: Reports no additional cardiovascular complaints Respiratory: Respiratory: Reports no additional respiratory complaints Gastrointestinal: Gastrointestinal: Reports no additional gastrointestinal complaints [facility] Past Medical History Medical History Anxiety Arm fracture At risk for dental problems COVID-19 04/2021 Ectopic Migraines Surgical History Surgical History No history of previous surgery Family History Family History Mother Heart disease Grandparent Diabetes mellitus Social History Social History Smoking packs per day: 0.5 Smoking cigarettes per day: 10.0 Years smoked: 14 Smoking pack-years: 7.00 Smoking status: Current every day smoker Tobacco type: cigarettes Second hand tobacco smoke exposure: No Alcohol intake: never Substance use: never Living arrangements: with family Occupation/Education: occupation Gender identity (if verbalized by the patient): Female Comments At the time of my signature, I reviewed and agree with the nursing past medical, surgical, social, and family history. There is no relevant family history pertinent to the patient complaint. Exam Const: General: cooperative, no acute distress, alert and awake Orientation/consciousness: oriented to person, oriented to place and oriented to time HENMT: Head: normal to inspection Ears: TM's normal bilaterally Mouth: Yes moist mucous membranes Throat: posterior oropharynx normal Resp: Effort & Inspection: normal respiratory effort and able to speak in complete sentences Auscultation: clear to auscultation bilaterally, no crackles, no rales, no rhonchi and no wheezes Cardio: Palpation: normal PMI Rate: regular rate Rhythm: regular rhythm Heart sounds: S1 normal heart sound present and S2 normal heart sound present Neuro: General: oriented to person, oriented to place and oriented to time Cranial nerves: Yes CN's II-XII intact bilaterally Psych: Appearance: grossly normal Thought process: Normal thought process present Insight: Good insight present (Psych) Judgement: Good judgement present (Psych) Course Course Level of Care: Express Care Visit Vital Signs Vital signs: Vital Signs Temperature 97.3 F L 03/16/24 10:31 Pulse Rate 57 L 03/16/24 10:31 Respiratory Rate 16 03/16/24 10:31 Blood Pressure 130/82 03/16/24 10:31 Pulse Oximetry 99 03/16/24 10:31 Oxygen Delivery Room Air 03/16/24 10:31 Temperature 97.3 F L 03/16/24 10:31 Pulse Rate 57 L 03/16/24 10:31 Respiratory Rate 16 03/16/24 10:31 Blood Pressure 130/82 03/16/24 10:31 Pulse Oximetry 99 03/16/24 10:31 Oxygen Delivery Room Air 03/16/24 10:31 Reviewed MDM - URI/Sore Throat MDM Narrative Medical decision making narrative: Patient with hoarse voice, sore throat. Negative rapid strep, culture pending. Supportive care measures discussed with patient. Follow with primary care provider. Emergency department for new or worse symptoms. Discharge instructions reviewed with patient, as well as provided in writing per nursing staff. The instructions also include specific and strict return/GO TO THE ER as well as f/u information. All questions have been answered, and the patient deny any further questions with discharge and discharge plan. Some parts of this dictation were generated by voice recognition software and may contain typographical and/or grammatical inaccuracies. Differential Diagnosis Differential diagnosis: Likely upper respiratory infection, sinusitis and pharyngitis Medical Records Attestation: I reviewed the patient's medical records. Lab Data Attestation: I reviewed the patient's lab results. Discharge Plan Discharge Clinical Impression: Upper respiratory infection Qualifiers: URI type: unspecified viral URI Qualified Code(s): J06.9 - Acute upper respiratory infection, unspecified Patient Disposition: Home, Self-Care Condition: Stable Instructions: Antibiotic Form, Cold Symptoms (ED) Additional Instructions: Tylenol and/or ibuprofen per package instructions as needed. Salt water gargles, hot tea and honey. Follow with primary care provider, emergency department for new or worse symptoms Patient Language: [place] Prescriptions: No Action prednisone 20 mg tablet 40 mg PO DAILY 5 Days Qty: 10 0RF triamcinolone acetonide 0.1 % cream 1 applic topical BID 7 Days Qty: 30 0RF Follow-up/Referrals: [facility] [Primary Care Provider] - Time of Disposition: 11:20
[2024-03-17 10:04] LABS: EDSTREPNEGPOS1 Negative (Negative)
== END 2024-03-16 11:22 | disposition home or self-care (01) ==
PROVIDERS: Emergency Provider Nurse Practitioner Family
DX: J06.9 Acute upper respiratory infection, unspecified (principal); F17.210 Nicotine dependence, cigarettes, uncomplicated; Z86.16 Personal history of COVID-19
CPT/HCPCS: 87081; 87880; 99213; G0463

== ENCOUNTER 2024-03-23 17:29 | Emergency (ER) | payer OTHER, SELFPAY ==
[2024-03-23 17:36] VITALS: BP 131/69; PULSE 82; RESP 19; TEMP 37.2; O2SAT 100
--- NOTE | 2024-03-23 18:14 | ED_ITS ---
HPI - URI/Sore Throat General Chief Complaint: Upper Respiratory Infection Stated Complaint: Sinus Time Seen by Provider: 03/23/24 18:06 Source: patient, RN notes reviewed and old records reviewed Mode of arrival: ambulatory Limitations: no limitations History of Present Illness HPI Narrative: Patient presents today complaining of a 10 day history of sinus pressure, nasal congestion, hoarseness, postnasal drip. Of note, patient was seen at [facility] approximately 1 week ago where her strep test was negative. She was placed on a course of prednisone which she did not take at the time. When her symptoms started to worsen she started the prednisone for her sinus pressure but states that was not helpful. She also tried Tylenol, ibuprofen, and Claritin with minimal relief. Reports history of deviated septum, which she states tends to contribute to sinusitis for her. Related Data Allergies Allergy/AdvReac Type Severity Reaction Status Date / Time cefaclor Allergy Mild Hives Verified 03/16/24 10:52 Review of Systems Review of Systems: CONSTITUTIONAL: Denies body aches, fever, chills, or sweats. EYES: Denies visual changes, redness, or discharge. ENT: Denies rhinorrhea, or otalgia.+ nasal congestion, sinus pressure, postnasal drainage, sore throat CARDIOVASCULAR: Denies chest pain, palpitations, or edema. RESPIRATORY: Denies cough or dyspnea. GASTROINTESTINAL: Denies abdominal pain, nausea, vomiting, or diarrhea. GENITOURINARY: Denies dysuria or hematuria. SKIN: Denies rash, itching, or wounds. MUSCULOSKELETAL: Denies back pain, joint pain, or myalgia. NEUROLOGIC: Denies headache, numbness, tingling, or weakness. PSYCH: Denies depression or anxiety. [facility] Past Medical History Medical History Anxiety Arm fracture At risk for dental problems COVID-19 04/2021 Ectopic Migraines Surgical History Surgical History No history of previous surgery Family History Family History Mother Heart disease Grandparent Diabetes mellitus Social History Social History Smoking packs per day: 0.5 Smoking cigarettes per day: 10.0 Years smoked: 14 Smoking pack-years: 7.00 Smoking status: Current every day smoker Tobacco type: cigarettes Second hand tobacco smoke exposure: No Alcohol intake: never Substance use: never Living arrangements: with family Occupation/Education: occupation Gender identity (if verbalized by the patient): Female Comments At time of signature, I have reviewed and agree with nursing past medical, surgical, social and family history unless otherwise noted. Please see nursing chart for further information. There is no relevant family history pertinent to the presenting complaint Exam Narrative: GENERAL: Mildly ill-appearing, well-nourished, and in no acute distress. HEAD: Normocephalic, atraumatic. EYES: EOMI. No redness or drainage. Conjunctivae normal. ENT: Mucous membranes pink and moist. Nares congested. Bilateral nasal turbinates erythematous and mildly edematous. No rhinorrhea. Tender bilateral frontal and maxillary sinuses to palpation. TMs normal bilaterally. Throat normal. Uvula midline. NECK: Normal AROM. Supple. No lymphadenopathy. CHEST: No respiratory distress. Clear to auscultation. HEART: Regular rate and rhythm. No murmur appreciated. EXTREMITIES: Normal range of motion. No edema. SKIN: Warm, dry, no rash. Capillary refill normal. Normal skin turgor. NEURO: No focal deficits. Alert and oriented x3. Gait steady. PSYCH: Normal affect. No signs of depression or anxiety. Course Course Level of Care: Express Care Visit Vital Signs Vital signs: Vital Signs Temperature 99 F 03/23/24 17:36 Pulse Rate 82 03/23/24 17:36 Respiratory Rate 19 03/23/24 17:36 Blood Pressure 131/69 03/23/24 17:36 Pulse Oximetry 100 03/23/24 17:36 Oxygen Delivery Room Air 03/23/24 17:36 Temperature 99 F 03/23/24 17:36 Pulse Rate 82 03/23/24 17:36 Respiratory Rate 19 03/23/24 17:36 Blood Pressure 131/69 03/23/24 17:36 Pulse Oximetry 100 03/23/24 17:36 Oxygen Delivery Room Air 03/23/24 17:36 Reviewed MDM - URI/Sore Throat MDM Narrative Medical decision making narrative: Patient will be placed on a course of Augmentin for presumed bacterial sinusitis. Recommend that she try decongestant and intranasal steroid such as Flonase. Anticipatory guidance given. Differential Diagnosis Differential diagnosis: Likely upper respiratory infection, otitis media, sinusitis and viral infection Critical Care Time Critical Care Time Critical Care Time: No Discharge Plan Discharge Clinical Impression: Sinusitis Qualifiers: Sinusitis location: unspecified location Chronicity: acute Recurrence: non- recurrent Qualified Code(s): J01.90 - Acute sinusitis, unspecified Patient Disposition: Home, Self-Care Condition: Stable Instructions: Antibiotic Form, Sinusitis (ED) Additional Instructions: Please take the Augmentin as prescribed until gone. Consider a decongestant to help with your sinus pressure such as Sudafed (pseudoephedrine) or an intranasal steroid such as Flonase. Follow-up with your PCP in 3 days if symptoms are not improving. Your blood pressure was elevated above 120/80 today at Urgent Care. This puts you above the threshold for follow up. Please schedule a followup visit with your personal physician as soon as possible, for further evaluation and treatment. Even blood pressure exceeding 120/80 may indicate pre-hypertension. Prescriptions: New amoxicillin-pot clavulanate 875-125 mg tablet 1 tablet PO Q12H 7 Days Qty: 14 0RF Follow-up/Referrals: [facility] [Primary Care Provider] - Time of Disposition: 18:19
== END 2024-03-23 18:25 | disposition home or self-care (01) ==
PROVIDERS: Emergency Provider Nurse Practitioner
DX: J01.90 Acute sinusitis, unspecified (principal); L27.0 Generalized skin eruption due to drugs and medicaments taken internally; T36.0X5A Adverse effect of penicillins, initial encounter; F17.210 Nicotine dependence, cigarettes, uncomplicated; Z86.16 Personal history of COVID-19
CPT/HCPCS: 99213; G0463

== ENCOUNTER 2024-05-23 09:02 | Emergency (ER) | payer OTHER, SELFPAY ==
--- NOTE | 2024-05-23 09:06 | ED.URI ---
HPI - URI/Sore Throat General Chief Complaint: Upper Respiratory Infection Stated Complaint: fever 102 since 05/21/23, cough, sore throat Time Seen by Provider: 05/23/24 09:05 Source: patient Mode of arrival: ambulatory Limitations: no limitations History of Present Illness HPI Narrative: Patient is a 34-year-old female presents with 2 days of fever, congestion, cough, sore throat. Patient states fever was 102 but thinks it broke last night. Patient has taken ibuprofen and Delsym once last night. Denies any ear pain, nausea, vomiting, diarrhea. Patient had Medrol Dosepak 04/07/24. Last antibiotics were amoxicillin and azithromycin 03/24/24 Related Data Home Medications ?Medication ?Instructions ?Recorded ?Confirmed ?Last Taken ?Type ondansetron 4 mg disintegrating 4 mg PO Q6-8H PRN nausea and 05/23/24 05/23/24 Unknown History tablet vomiting Allergies Allergy/AdvReac Type Severity Reaction Status Date / Time cefaclor Allergy Mild Hives Verified 05/23/24 09:24 Review of Systems Review of Systems: All systems reviewed & are unremarkable except as noted in HPI and below Constitutional: Constitutional: Denies body ache(s), Denies chills, Denies fatigue, Reports fever(s), Denies headache(s), Denies malaise and Denies weakness Eyes: Eyes: Denies blurry vision, Denies itchy eyes and Denies loss of vision ENT: Denies otalgia, Denies headache(s), Reports nasal congestion, Denies sinus pain and Reports sore throat Cardiovascular: Cardiovascular: Denies chest pain, Denies irregular heart rhythm and Denies dyspnea Respiratory: Respiratory: Reports cough and Denies dyspnea Gastrointestinal: Gastrointestinal: Denies abdominal pain, Denies diarrhea, Denies nausea and Denies vomiting Musculoskeletal: Musculoskeletal: Denies back pain, Denies myalgias and Denies arthralgias Integumentary/Breasts: Skin/Breast: Denies pruritus and Denies rash Neurologic: Denies headache(s), Denies loss of vision and Denies weakness Psychiatric: Psychiatric: Reports no additional psychiatric complaints Endocrine: Endocrine: Denies fatigue Allergic/Immunologic: Allergic/Immunologic: Denies itchy eyes PMFSH Past Medical History Medical History Ectopic COVID-19 04/2021 Anxiety Arm fracture Migraines At risk for dental problems Surgical History Surgical History No history of previous surgery Family History Family History Mother Heart disease Grandparent Diabetes mellitus Social History Social History Smoking packs per day: 0.5 Smoking cigarettes per day: 10.0 Years smoked: 14 Smoking pack-years: 7.00 Smoking status: Current every day smoker Tobacco type: cigarettes Second hand tobacco smoke exposure: No Alcohol intake: never Substance use: never Living arrangements: with family Occupation/Education: occupation Gender identity (if verbalized by the patient): Female Comments At time of signature, agree with nursing past medical, surgical, social and family history. There is no relevant family history pertinent to the presenting complaint. Exam Const: General: cooperative, healthy appearing, comfortable, no acute distress and well nourished Nutritional Appearance: well nourished Orientation/consciousness: patient oriented x3 Limitations: no limitations HENMT: Head: normal to inspection, normocephalic and atraumatic Ears: hearing grossly normal bilaterally, external ears normal, TM's normal bilaterally, EAC's normal and no periauricular adenopathy Face/Nose/Sinus: Normal external nose present, Abnormal mucous membranes and turbinates present erythematous bilateral and diffuse, normal facial exam, sinuses nontender and face symmetric Face and sinus: normal facial exam, sinuses nontender and face symmetric Mouth: Yes Normal oral and palatal mucosa present, Yes lip normal, Yes tongue normal, Yes Normal salivary glands and ducts present, Yes oropharynx normal and Yes moist mucous membranes Teeth and gingiva: dentition normal Throat: posterior oropharynx normal, tonsils normal and uvula midline Eyes: General: appearance normal, both eyes and all related structures Alignment and Position: alignment normal and position normal Periorbital: periorbital findings normal Eyelids: eyelids normal Pupils: Equal, round and reactive pupils present Neck: Neck: normal visual inspection, full ROM, no lymphadenopathy and supple Chest: Chest palpation & inspection: normal inspection of the chest and normal palpation of entire chest wall Resp: Effort & Inspection: normal respiratory effort and able to speak in complete sentences Auscultation: clear to auscultation bilaterally, no crackles, no rales, no rhonchi and no wheezes Cardio: Rate: regular rate Rhythm: regular rhythm Heart sounds: S1 normal heart sound present and S2 normal heart sound present GI: Inspection: normal to inspection Skin: General skin exam: normal color and no rashes or lesions noted Neuro: General: patient oriented x3 and moves all extremities Cranial nerves: Yes Equal, round and reactive pupils present Speech: normal speech Gait exam (Neuro): Normal gait present Extrem: General: normal to inspection, full ROM and no edema Psych: Appearance: grossly normal and well kempt Mental Status: mental status grossly normal Speech and movement: Normal speech and movement present Affect: normal affect Attitude: cooperative Thought process: Normal thought process present Course Course Emergency Course: Discharge instructions reviewed with patient, as well as provided in writing per nursing staff. The instructions also include specific and strict return/GO TO THE ER as well as f/u information. All questions have been answered, and the patient deny any further questions with discharge and discharge plan. Portions of this record may have been created with voice recognition software Level of Care: Express Care Visit Vital Signs Vital signs: Vital Signs Temperature 36.6 C 05/23/24 09:12 Pulse Rate 85 05/23/24 09:12 Respiratory Rate 16 05/23/24 09:12 Blood Pressure 134/84 05/23/24 09:12 Pulse Oximetry 100 05/23/24 09:12 Oxygen Delivery Room Air 05/23/24 09:12 Temperature 36.6 C 05/23/24 09:12 Pulse Rate 85 05/23/24 09:12 Respiratory Rate 16 05/23/24 09:12 Blood Pressure 134/84 05/23/24 09:12 Pulse Oximetry 100 05/23/24 09:12 Oxygen Delivery Room Air 05/23/24 09:12 Reviewed MDM - URI/Sore Throat MDM Narrative Medical decision making narrative: Pt well hydrated appearing, in no respiratory distress, hemodynamically stable. Recommend supportive care. The patient is stable at time of discharge the clinical impression was discussed and the patient was given the opportunity to ask questions, which were addressed as completely as possible given the information available at present. Anticipatory guidance and return to care precautions were discussed and the importance of primary care follow-up was stressed and encouraged. The patient voiced understanding of the plan, indications to return, and the need for follow-up. Differential diagnosis considered: Mendez virus, strep pharyngitis, allergic rhinitis, upper respiratory tract infection, sinusitis, rhinosinusitis, nasopharyngitis. viral pharyngitis, otitis media, otitis externa, otitis effusion, foreign body, cerumen impaction, viral syndrome, and influenza.? Exam findings show no acute concerns or changes; patient is non-toxic appearing and is in no distress.? Patient is appropriate for outpatient treatment and follow-up.? Medical Records Attestation: I reviewed the patient's medical records. Lab Data Attestation: I reviewed the patient's lab results. Labs: Patient was positive for influenza A Negative for strep, influenza B and COVID Discharge Plan Discharge Clinical Impression: Influenza Patient Disposition: Home, Self-Care Condition: Stable Instructions: Influenza (ED) Additional Instructions: Were positive for influenza A. Your Covid is negative. Strep was also negative Your symptoms are due to a viral illness, which is not treated with antibiotics. Viral symptoms can be present for up to a few weeks. -For fever/pain, you may take: Tylenol 650-1000mg by mouth every 4-6 hours. Do not exceed 4000mg in 24 hours. Advil (Ibuprofen) 600 mg by mouth every 6 hours. Do not exceed 2400mg in 24 hours. 8 AM: Tylenol 11 AM: Ibuprofen 2 PM: Tylenol 5 PM: Ibuprofen 8 PM: Tylenol 11 PM: Ibuprofen 2 AM: Tylenol 5 AM: Ibuprofen -Antihistamine medication such as Benadryl/Zyrtec at night and Claritin/Georgina during the day can help improve symptoms. -Use Flonase twice a day for 5 days then daily to help reduce the inflammation and dry up your sinuses. -You can also use Sudafed behind the pharmacy counter(12 or 24 hour). Be sure to drink plenty of water with these medications at least 8 ounces with every dose and it is important to drink 8 to 10 glasses of water per day. Water is a natural decongestant -Eat and drink things that are easy to swallow, like tea or soup, or popsicles. -Oral rinses such as: Salt water gargles and/or may use topical anesthetic (eg. Chloraseptic spray) or lozenges to relieve dryness or throat pain). -Frequent hand washing or hand wax ball knock out worker is one of the best ways to prevent spread of infection. -Using a vaporizer or humidifier at night will also help thin secretions and help with coughing up phlegm. -Follow up with primary care provider in 3-5 days if condition is not improving - For new or worsening symptoms go directly to the nearest ER Patient Language: Citizen Of [place] Prescriptions: New albuterol sulfate 90 mcg/actuation HFA aerosol inhaler 2 puff inhalation QID PRN (Reason: shortness of breath or wheezing) Qty: 6.7 0RF (DME) Aerochamber MV Spacer See Rx Instructions .Route Qty: 1 0RF Rx Instructions: As directed promethazine-DM 6.25-15 mg/5 mL syrup 5 ml PO Q4-6H PRN (Reason: cough) Qty: 118 0RF fluticasone propionate [Flonase Allergy Relief] 50 mcg/actuation spray,suspension 1 spray intranasal DAILY Qty: 16 0RF Rx Instructions: administer into each nostril No Action ondansetron 4 mg tablet,disintegrating 4 mg PO Q6-8H PRN (Reason: nausea and vomiting) Follow-up/Referrals: Romeo Islas MD [Physician] - 3 Days Stand Alone Forms: Work/School Release IP Time of Disposition: 09:59
[2024-05-23 09:12] VITALS: BP 134/84; PULSE 85; RESP 16; TEMP 36.6; O2SAT 100
[2024-05-23 12:23] LABS: EDCOVIDSCREEN Negative (Negative); EDINFLUASCREEN Positive (Negative); EDINFLUBSCREEN Negative (Negative); EDSTREPNEGPOS1 Negative (Negative)
== END 2024-05-23 10:03 | disposition home or self-care (01) ==
PROVIDERS: Emergency Provider Nurse Practitioner Family
DX: J11.1 Influenza due to unidentified influenza virus with other respiratory manifestations (principal); F17.210 Nicotine dependence, cigarettes, uncomplicated; Z20.822 Contact with and (suspected) exposure to COVID-19
CPT/HCPCS: 87426; 87804; 87880; 99213; G0463

== ENCOUNTER 2024-09-02 08:32 | Emergency (ER) | payer OTHER, SELFPAY ==
--- NOTE | 2024-09-02 08:34 | ED.FEMALEGU ---
HPI - Female Genitourinary General Chief complaint: Urogenital-Female Stated complaint: Vaginal Problems Time Seen by Provider: 09/02/24 08:34 Source: patient Mode of arrival: ambulatory Limitations: no limitations History of Present Illness HPI Narrative: Ashli is a 34-year-old female patient presenting to the clinic today with complaints a possible genital herpes outbreak times 2-3 days. She reports she does have a history of genital herpes. States that she has canker sore like lesions down on her labia near her vaginal opening. Area is painful when she urinates and wipes him. States area is burning/tingling at times. No fevers, chills, body aches. Has taken acyclovir and valacyclovir in the past for this. Related Data Allergies Allergy/AdvReac Type Severity Reaction Status Date / Time cefaclor Allergy Mild Hives Verified 09/02/24 08:35 Review of Systems Review of Systems: Pertinent positives per HPI. Patient denies any fever, chills, rash, headache, visual changes, dizziness, cough, runny nose, sore throat, shortness of breath, chest pain, palpitations, nausea, vomiting, diarrhea, constipation, abdominal pain, or any urinary issues. [facility] Past Medical History Medical History Ectopic COVID-19 04/2021 Anxiety Arm fracture Migraines At risk for dental problems Surgical History Surgical History No history of previous surgery Family History Family History Mother Heart disease Grandparent Diabetes mellitus Social History Social History Smoking packs per day: 0.5 Smoking cigarettes per day: 10.0 Years smoked: 14 Smoking pack-years: 7.00 Smoking status: Current every day smoker Tobacco type: cigarettes Second hand tobacco smoke exposure: No Alcohol intake: never Substance use: never Living arrangements: with family Occupation/Education: occupation Gender identity (if verbalized by the patient): Female Comments At the time of my signature, I reviewed and agree with the nursing past medical, surgical, social, and family history. There is no relevant family history pertinent to the patient complaint. Exam Narrative: General: Well-developed, well nourished, in no apparent distress Head: Normocephalic, atraumatic. Cardio: Regular rate and rhythm, s1 and s2 normal, no murmur appreciated. Resp: Clear to auscultation bilaterally, no rhonchi, rales, wheezing or rubs. Abdomen: Soft, pliable, bowel sounds present in all quadrants, non-tender to palpation, no CVAT tenderness. : Deferred-patient declined exam Course Course Emergency Course: Portions of this record may have been created with voice recognition software. Level of Care: Express Care Visit Vital Signs Vital signs: Vital signs reviewed MDM - Female Genitourinary MDM Narrative Medical decision making narrative: At the time of visit patient is resting comfortably on the exam table. Patient appears to be nontoxic. Plan: Patient reports having genital herpes. Has had herpes in the past and states her symptoms are similar. She has declined a genital exam in the clinic today. We will treat for recurrent genital herpes and place her on Valtrex 500 mg twice daily x5 days. Supportive measures were discussed with the patient and they voiced understanding discharge instructions and agrees to treatment plan. Return precautions reviewed Differential Diagnosis Differential diagnosis: Likely urinary tract infection, bacterial vaginosis, trichomoniasis, cervicitis, ovarian cyst, vaginitis, ruptured ovarian cyst, cyst of Bartholin's gland, cystitis and dysmenorrhea Discharge Plan Discharge Clinical Impression: Genital herpes Qualifiers: Herpes simplex infection site: vulvovaginitis Qualified Code(s): A60.04 - Herpesviral vulvovaginitis Patient Disposition: Home Condition: Stable Instructions: Antibiotic Form, Genital Herpes Infection (ED) Additional Instructions: Avoid sexual intercourse until lesions are resolved Take valacyclovir as prescribed May apply cool compress to the affected area to help alleviate pain and swelling Follow-up with your OBGYN/PCP as discussed Go to the emergency room if symptoms worsen Patient Language: Indonesian Prescriptions: New valacyclovir 500 mg tablet 500 mg PO Q12H 5 Days Qty: 10 0RF No Action albuterol sulfate 90 mcg/actuation HFA aerosol inhaler 2 puff inhalation QID PRN (Reason: shortness of breath or wheezing) Qty: 6.7 0RF (DME) Aerochamber MV Spacer See Rx Instructions .Route Qty: 1 0RF Rx Instructions: As directed fluticasone propionate [Flonase Allergy Relief] 50 mcg/actuation spray,suspension 1 spray intranasal DAILY Qty: 16 0RF Rx Instructions: administer into each nostril Follow-up/Referrals: PHYSICIAN,ENVIRONMENTAL ECONOMIST [Primary Care Provider] - Time of Disposition: 08:50 Quality NIHSS Nursing Documentation ED NIHSS nursing documentation: reviewed/agree
[2024-09-02 08:35] VITALS: BP 125/85; PULSE 76; RESP 18; O2SAT 100
== END 2024-09-02 08:52 | disposition home or self-care (01) ==
PROVIDERS: Emergency Provider Nurse Practitioner Family
DX: A60.04 Herpesviral vulvovaginitis (principal); F17.210 Nicotine dependence, cigarettes, uncomplicated; Z86.16 Personal history of COVID-19
CPT/HCPCS: 99213; G0463

== ENCOUNTER 2024-10-20 08:07 | Emergency (ER) | payer OTHER, SELFPAY ==
--- NOTE | 2024-10-20 08:10 | ED_ITS ---
HPI - Skin/Abscess/Foreign Bdy General Chief complaint: Skin/Abscess/Foreign Body Stated complaint: rash on arms and face Time Seen by Provider: 10/20/24 08:09 Source: patient Mode of arrival: ambulatory Limitations: no limitations History of Present Illness HPI narrative: Patient is a 34-year-old female who presents with rash to bilateral arms and face. Patient was outside in the sun prior to rash starting. Patient reports it is very itchy and she gets it normally once a year after being out in the heat all weekend. Patient has sunburn on chest from Sunday. Patient states that responds well to steroids. Denies any new soaps, detergents or exposures. Patient has not been pulling weeds. Denies any fever, chills, nausea, vomiting, diarrhea. Related Data Home Medications ?Medication ?Instructions ?Recorded ?Confirmed ?Last Taken ?Type medroxyprogesterone 150 mg/mL mg IM 10/20/24 Unknown History intramuscular suspension Allergies Allergy/AdvReac Type Severity Reaction Status Date / Time cefaclor Allergy Mild Hives Verified 10/20/24 08:19 Review of Systems Review of Systems: All systems reviewed & are unremarkable except as noted in HPI and below Constitutional: Constitutional: Denies body ache(s), Denies chills, Denies fatigue, Denies fever(s), Denies headache(s), Denies malaise and Denies weakness Eyes: Eyes: Denies blurry vision, Denies irritation and Denies loss of vision ENT: Denies otalgia, Denies headache(s), Denies nasal discharge, Denies sinus pain and Denies sore throat Cardiovascular: Cardiovascular: Denies chest pain, Denies irregular heart rhythm and Denies dyspnea Respiratory: Respiratory: Denies dyspnea Gastrointestinal: Gastrointestinal: Denies abdominal pain, Denies melena, Denies hematochezia, Denies diarrhea, Denies nausea and Denies vomiting Musculoskeletal: Musculoskeletal: Denies back pain, Denies myalgias and Denies arthralgias Integumentary/Breasts: Skin/Breast: Reports pruritus and Reports rash Neurologic: Denies headache(s), Denies loss of vision and Denies weakness Psychiatric: Psychiatric: Reports no additional psychiatric complaints Endocrine: Endocrine: Denies fatigue PMFSH Past Medical History Medical History Ectopic COVID-19 04/2021 Anxiety Arm fracture Migraines At risk for dental problems Surgical History Surgical History No history of previous surgery Family History Family History Mother Heart disease Grandparent Diabetes mellitus Social History Social History Smoking packs per day: 0.5 Smoking cigarettes per day: 10.0 Years smoked: 14 Smoking pack-years: 7.00 Smoking status: Current every day smoker Tobacco type: cigarettes Second hand tobacco smoke exposure: No Alcohol intake: never Substance use: never Living arrangements: with family Occupation/Education: occupation Gender identity (if verbalized by the patient): Female Comments At time of signature, agree with nursing past medical, surgical, social and family history. There is no relevant family history pertinent to the presenting complaint. Exam Const: General: cooperative, healthy appearing, comfortable, no acute distress and well nourished Nutritional Appearance: well nourished Orientation/consciousness: patient oriented x3 Limitations: no limitations HENMT: Head: normal to inspection, normocephalic and atraumatic Ears: hearing grossly normal bilaterally and external ears normal Face/Nose/Sinus: Normal external nose present, normal facial exam and face symmetric Face and sinus: normal facial exam and face symmetric Mouth: Yes lip normal Eyes: General: appearance normal, both eyes and all related structures Alignment and Position: alignment normal and position normal Periorbital: periorbital findings normal Eyelids: eyelids normal Pupils: Equal, round and reactive pupils present EOM: EOMs intact bilaterally Neck: Neck: normal visual inspection, full ROM and supple Chest: Chest palpation & inspection: normal inspection of the chest Resp: Effort & Inspection: normal respiratory effort and able to speak in complete sentences Auscultation: clear to auscultation bilaterally Cardio: Rate: regular rate Rhythm: regular rhythm Heart sounds: S1 normal heart sound present and S2 normal heart sound present GI: Inspection: normal to inspection Skin: General skin exam: normal color and rashes Rashes: rashes noted papules bilateral arm arrangement grouped, borders sharp, color red and surface rough and with an erythematous base; fluctuant not assessed and nontender Neuro: General: patient oriented x3 and moves all extremities Cranial nerves: Yes Equal, round and reactive pupils present Speech: normal speech Gait exam (Neuro): Normal gait present Extrem: General: normal to inspection, full ROM and no edema Psych: Appearance: grossly normal and well kempt Mental Status: mental status grossly normal Speech and movement: Normal speech and movement present Affect: normal affect Attitude: cooperative Thought process: Normal thought process present Course Course Emergency Course: Patient is aware of diagnosis, understands and agrees to treatment plan. Anticipatory guidance given. Patient agrees to follow-up as directed and is aware of reasons to seek care at the emergency department. Portions of this record may have been created with voice recognition software Level of Care: Express Care Visit Vital Signs Vital signs: Reviewed MDM - Skin/Abscess/Foreign Bdy MDM Narrative Medical decision making narrative: Pt well hydrated appearing, in no respiratory distress, hemodynamically stable. Recommend supportive care. The patient is stable at time of discharge the clinical impression was discussed and the patient was given the opportunity to ask questions, which were addressed as completely as possible given the information available at present. Anticipatory guidance and return to care precautions were discussed and the importance of primary care follow-up was stressed and encouraged. The patient voiced understanding of the plan, indications to return, and the need for follow-up. Exam findings show no acute concerns or changes Patient is appropriate for outpatient treatment and follow-up. Differential Diagnosis Differential diagnosis: Likely viral exanthem, allergic reaction to drug, eczema, insect bites, contact dermatitis and other (Heat rash) Medical Records Attestation: I reviewed the patient's medical records. Discharge Plan Discharge Clinical Impression: Heat rash Patient Disposition: Home Condition: Stable Instructions: Dermatitis (ED) Additional Instructions: The most important part of your care is follow up with Primary care provider. Take Benadryl 25-50 mg every 6 hours for itching Take Claritin, Zyrtec, or Georgina daily for the next 7 days Take the steroids starting when you wake up today Avoid hot showers, Take cool showers. Wash the area with gentle soap and water only. Use skin cream as prescribed to reduce itchiness Avoid scratching when possible to prevent worsening of the condition and disruption of the skin that could lead to bacterial infection To relieve itching, place a cool washcloth or some ice over the area that itches, rather than scratching Follow up with primary care provider or seek ER if you have trouble breathing, become hoarse, or start wheezing, develop belly cramps, vomiting or feel dizzy. Patient Language: [place]ican Prescriptions: New prednisone 20 mg tablet 40 mg PO DAILY 5 Days Qty: 10 0RF triamcinolone acetonide 0.1 % cream 1 applic topical TID 5 Days Qty: 80 0RF No Action (DME) Aerochamber MV Spacer See Rx Instructions .Route Qty: 1 0RF Rx Instructions: As directed medroxyprogesterone 150 mg/mL suspension IM Follow-up/Referrals: Jairo Barnes MD [Physician] - 3 Days ([facility]) Time of Disposition: 08:40
[2024-10-20 08:11] VITALS: BP 133/79; PULSE 64; RESP 16; TEMP 36.6; O2SAT 100
== END 2024-10-20 08:47 | disposition home or self-care (01) ==
PROVIDERS: Emergency Provider Nurse Practitioner Family
DX: L74.0 Miliaria rubra (principal); F17.210 Nicotine dependence, cigarettes, uncomplicated; F41.9 Anxiety disorder, unspecified; Z86.16 Personal history of COVID-19
CPT/HCPCS: 99213; G0463

== ENCOUNTER 2025-03-11 09:35 | Emergency (ER) | payer SELFPAY ==
[2025-03-11 09:45] VITALS: BP 132/74; PULSE 97; RESP 18; TEMP 36.7; O2SAT 100
[2025-03-11 10:08] LABS: EDSTREPNEGPOS1 Negative (Negative)
--- NOTE | 2025-03-11 10:10 | ED.URI ---
HPI - URI/Sore Throat General Chief Complaint: Upper Respiratory Infection Stated Complaint: Sore Throat Time Seen by Provider: 03/11/25 10:01 Source: patient and RN notes reviewed Mode of arrival: ambulatory Limitations: no limitations History of Present Illness HPI Narrative: 35 year old female patient presents today complaining of 2 day history of sore throat and canker sores in the throat with some chills last night. Denies any additional symptoms to include cough, congestion, rhinorrhea, fever, shortness of breath. Denies known sick contacts. She has been taking tylenol, motrin, and honey with little relief. Related Data Allergies Allergy/AdvReac Type Severity Reaction Status Date / Time amoxicillin (From Augmentin) Allergy Intermediate Rash Verified 03/11/25 09:54 clavulanic acid (From Allergy Intermediate Rash Verified 03/11/25 09:54 Augmentin) cefaclor Allergy Mild Hives Verified 03/11/25 09:54 PMFSH Past Medical History Medical History Ectopic COVID-19 04/2021 Anxiety Arm fracture Migraines At risk for dental problems Surgical History Surgical History No history of previous surgery Family History Family History Mother Heart disease Grandparent Diabetes mellitus Social History Social History Smoking packs per day: 0.5 Smoking cigarettes per day: 10.0 Years smoked: 14 Smoking pack-years: 7.00 Tobacco type: cigarettes Second hand tobacco smoke exposure: No Alcohol intake: never Substance use: never Living arrangements: with family Occupation/Education: occupation Gender identity (if verbalized by the patient): Female Comments At time of signature, I have reviewed and agree with nursing past medical, surgical, social and family history unless otherwise noted. Please see nursing chart for further information. There is no relevant family history pertinent to the presenting complaint Exam Narrative: GENERAL: Mildly ill-appearing, well-nourished, and in no acute distress. HEAD: Normocephalic, atraumatic. EYES: EOMI. No redness or drainage. Conjunctivae normal. ENT: Mucous membranes pink and moist. Nares clear. No rhinorrhea. TMs normal bilaterally. Throat erythematous without edema. Few small white ulcerations to the posterior oropharynx. Uvula midline. NECK: Normal AROM. Supple. No lymphadenopathy. CHEST: No respiratory distress. Clear to auscultation. HEART: Regular rate and rhythm. No murmur appreciated. EXTREMITIES: Normal range of motion. No edema. SKIN: Warm, dry, no rash. Capillary refill normal. Normal skin turgor. NEURO: No focal deficits. Alert and oriented x3. Gait steady. PSYCH: Normal affect. No signs of depression or anxiety. Course Course Level of Care: Express Care Visit Vital Signs Vital signs: Vital Signs Temperature 98.1 F 03/11/25 09:45 Pulse Rate 97 03/11/25 09:45 Respiratory Rate 18 03/11/25 09:45 Blood Pressure 132/74 03/11/25 09:45 Pulse Oximetry 100 03/11/25 09:45 Oxygen Delivery Room Air 03/11/25 09:45 Temperature 98.1 F 03/11/25 09:45 Pulse Rate 97 03/11/25 09:45 Respiratory Rate 18 03/11/25 09:45 Blood Pressure 132/74 03/11/25 09:45 Pulse Oximetry 100 03/11/25 09:45 Oxygen Delivery Room Air 03/11/25 09:45 Reviewed MDM - URI/Sore Throat MDM Narrative Medical decision making narrative: 35 year old female patient presents today complaining of 2 day history of sore throat and canker sores in the throat with some chills last night. Denies any additional symptoms to include cough, congestion, rhinorrhea, fever, shortness of breath. Denies known sick contacts. She has been taking tylenol, motrin, and honey with little relief. Upon exam, patient is mildly ill appearing, Throat erythematous without edema. Few small white ulcerations to the posterior oropharynx. Uvula midline. No rash to skin. Rapid strep negative. Culture pending. Symptoms likely viral in etiology. Discussed the bland foods help decrease the irritation the aphthous ulcers. Discussed [id number] medication use and duration of illness. Offered some viscous lidocaine to help with her ulceration pain, patient declined. Anticipatory guidance given. Vital signs stable. Differential Diagnosis Differential diagnosis: Likely upper respiratory infection, viral infection, pharyngitis and other (Strep throat, aphthous ulcer, [id number]) Lab Data Attestation: I reviewed the patient's lab results. Labs: Lab Results 03/11/25 Range/Units 10:06 POC Grp A Strep Screen Negative (Negative) Critical Care Time Critical Care Time Critical Care Time: No Discharge Plan Discharge Clinical Impression: Pharyngitis Qualifiers: Pharyngitis/tonsillitis etiology: unspecified etiology Qualified Code(s): J02.9 - Acute pharyngitis, unspecified Patient Disposition: Home Condition: Stable Instructions: Pharyngitis (ED) Additional Instructions: Your rapid strep swab was negative today at [facility]. You will be notified in a few days if the culture comes back positive for strep, and appropriate antibiotics will be called in for you at that time. Your symptoms are likely due to a viral illness, which is not treated with antibiotics. Viral symptoms can be present for up to 7-10 days. Take Tylenol or ibuprofen for fever or pain. Rest and stay hydrated. Follow up with your PCP in 7 days if symptoms are not improving. Go to the ER immediately if you have any difficulty breathing or swallowing. Patient Language: Swiss Prescriptions: No Action (DME) Aerochamber MV Spacer See Rx Instructions .Route Qty: 1 0RF Rx Instructions: As directed Follow-up/Referrals: PHYSICIAN,COMMUNITY RELATIONS LIAISON [Primary Care Provider, Internal Medicine] Stand Alone Forms: Work/School Release IP Time of Disposition: 10:09
== END 2025-03-11 10:13 | disposition home or self-care (01) ==
PROVIDERS: Emergency Provider Nurse Practitioner
DX: J02.9 Acute pharyngitis, unspecified (principal); F17.210 Nicotine dependence, cigarettes, uncomplicated
CPT/HCPCS: 87081; 87880; 99213; G0463